=== PATIENT | male | born 1940 | race Caucasian/White ===

== ENCOUNTER 2019-06-15 09:19 | Outpatient (CLI) | payer MEDICARE, SELFPAY ==
[2019-06-15 09:38] LABS: Hematocrit 40.6 % (37.0-46.0); Hemoglobin 13.6 g/dL (12.4-15.3); Immature Platelet Fraction Pct 2.6 % (1.0-7.0); Mean Corpuscular HGB Conc 33.5 g/dL (32.0-36.0); Mean Corpuscular Hemoglobin 31.6 pg (27.0-31.0); Mean Corpuscular Volume 94.4 fL (78.0-102.0); Mean Platelet Volume 10.2 fl (8.7-11.0); Platelet Count Result 85 K/mm3 (150-420); Red Cell Distribution Width 15.6 % (11.6-14.4); White Blood Count 3.3 K/mm3 (4.8-10.8)
[2019-06-15 09:54] LABS: Alanine Aminotransferase 17 U/L (16-63); Albumin Level 3.8 g/dL (3.4-5.0); Alkaline Phosphatase 49 U/L (46-116); Anion Gap 10.6 mmol/L (7-16); Aspartate Amino Transferase 17 U/L (15-37); Band Neutrophils Percent 2 % (0-6); Basophils Percent Manual 0 % (0-1); Bilirubin,Total 0.8 mg/dL (0.00-1.00); Blood Urea Nitrogen 22 mg/dL (7-18); Calcium 8.6 mg/dL (8.5-10.1); Carbon Dioxide 33 mmol/L (21-32); Chloride 101 mmol/L (98-108); Eosinophils Absolute Manual 0.13 K/mm3 (0.02-0.5); Eosinophils Percent Manual 4 % (1-6); Estimated Glomerular Filt Rate 41; Glucose 166 mg/dL (70-99); Lymphocytes Absolute Manual 0.16 K/mm3 (1.1-4.5); Lymphocytes Percent Manual 5 % (18-44); Monocytes Absolute Manual 0.33 K/mm3 (0.1-0.90); Monocytes Percent Manual 10 % (3-9); Neutrophils Absolute Manual 2.67 K/mm3 (1.3-6.7); Neutrophils Percent Manual 79 % (46-73); Osmolality Calculated 297 mOsm/kg (285-295); Potassium 4.6 mmol/L (3.5-5.1); Sodium 140 mmol/L (136-145); Total Cells Counted 100; Total Protein 6.8 g/dL (6.4-8.2)
[2019-06-15 09:55] LABS: Platelet Estimate Decreased (Adequate)
[2019-06-20 11:10] LABS: Hemoglobin A1C 6.4 % (<5.7)
[2019-06-20 11:31] LABS: Free T4 Free Thyroxine Reflex 1.66 ng/dL (0.76-1.46)
[2019-06-22 12:15] LABS: Cortisol Random 7.7 mcg/dL (***)
== END 2019-06-15 09:20 | disposition home or self-care (01) ==
LOC: CHSLAB 09:21
PROVIDERS: PCP Internal Medicine; Visit Provider Internal Medicine Hematology & Oncology
DX: C7A.8 Other malignant neuroendocrine tumors (principal)
CPT/HCPCS: 36415; 80053; 82533; 83036; 84439; 84443; 85025; 85055

== ENCOUNTER 2019-07-10 11:48 | Outpatient (CLI) | payer MEDICARE, SELFPAY ==
[2019-07-10 12:19] VITALS: BP 126/62; PULSE 68; RESP 18; TEMP 36.6; O2SAT 99
[2019-07-10 12:21] LABS: Hematocrit 36.9 % (37.0-46.0); Hemoglobin 12.5 g/dL (12.4-15.3); Mean Corpuscular HGB Conc 33.9 g/dL (32.0-36.0); Mean Corpuscular Hemoglobin 31.9 pg (27.0-31.0); Mean Corpuscular Volume 94.1 fL (78.0-102.0); Mean Platelet Volume 10.7 fl (8.7-11.0); Platelet Count Result 101 K/mm3 (150-420); Red Blood Count 3.92 M/mm3 (4.70-6.10); Red Cell Distribution Width 14.2 % (11.6-14.4); White Blood Count 3.6 K/mm3 (4.8-10.8)
[2019-07-10 12:38] LABS: Alanine Aminotransferase 19 U/L (16-63); Albumin Level 3.7 g/dL (3.4-5.0); Alkaline Phosphatase 62 U/L (46-116); Anion Gap 12.6 mmol/L (7-16); Aspartate Amino Transferase 22 U/L (15-37); Bilirubin,Total 0.8 mg/dL (0.00-1.00); Blood Urea Nitrogen 21 mg/dL (7-18); Calcium 8.6 mg/dL (8.5-10.1); Carbon Dioxide 29 mmol/L (21-32); Chloride 103 mmol/L (98-108); Estimated Glomerular Filt Rate 33; Glucose 227 mg/dL (70-99); Osmolality Calculated 298 mOsm/kg (285-295); Potassium 5.6 mmol/L (3.5-5.1); Sodium 139 mmol/L (136-145); Total Protein 6.8 g/dL (6.4-8.2)
[2019-07-10 12:58] LABS: Band Neutrophils Percent 0 % (0-6); Eosinophils Absolute Manual 0.03 K/mm3 (0.02-0.5); Eosinophils Percent Manual 1 % (1-6); Lymphocytes Absolute Manual 0.28 K/mm3 (1.1-4.5); Lymphocytes Percent Manual 8 % (18-44); Monocytes Absolute Manual 0.43 K/mm3 (0.1-0.90); Monocytes Percent Manual 12 % (3-9); Neutrophils Percent Manual 78 % (46-73); Total Cells Counted 100
[2019-07-10 12:59] LABS: Basophils Percent Manual 0 % (0-1); Myelocytes Percent 1 %; Platelet Estimate Decreased (Adequate)
[2019-07-10] MEDS: FAMOTIDINE 20 MG/ISO 50 ML 20 MG/50 ML BAG 100 MG IVPB (13:13)
[2019-07-10] MEDS: ACETAMINOPHEN 325 MG TABLET 650 MG PO (13:13)
[2019-07-10 14:44] VITALS: BP 107/60; PULSE 68; RESP 14; TEMP 36.6; O2SAT 99
--- NOTE | 2019-07-10 14:50 | PC.NURSE ---
Patient here for Durvalumab chemo infusion. #1 of #26. All chemo teaching given. All questions answer. Chemo treatment administered. Patient tolerated well. Safe exit of hospital.
== END 2019-07-10 11:49 | disposition home or self-care (01) ==
LOC: CHSTREATRM 11:51
PROVIDERS: PCP Internal Medicine; Visit Provider Internal Medicine Hematology & Oncology
DX: Z51.11 Encounter for antineoplastic chemotherapy (principal); C7A.8 Other malignant neuroendocrine tumors; C7A.090 Malignant carcinoid tumor of the bronchus and lung
CPT/HCPCS: 36415; 80053; 85025; 96365; 96374; 96413; A9270; J1200; J7050; J9173

== ENCOUNTER 2019-07-18 09:45 | Outpatient (CLI) | payer MEDICARE, SELFPAY ==
[2019-07-18 11:23] LABS: Anion Gap 11.2 mmol/L (7-16); Blood Urea Nitrogen 23 mg/dL (7-18); Calcium 9.2 mg/dL (8.5-10.1); Carbon Dioxide 31 mmol/L (21-32); Chloride 102 mmol/L (98-108); Estimated Glomerular Filt Rate 39; Glucose 149 mg/dL (70-99); Osmolality Calculated 294 mOsm/kg (285-295); Potassium 5.2 mmol/L (3.5-5.1); Sodium 139 mmol/L (136-145)
== END 2019-07-18 09:46 | disposition home or self-care (01) ==
LOC: CHSLAB 09:47
PROVIDERS: PCP Internal Medicine; Visit Provider Internal Medicine
DX: R79.89 Other specified abnormal findings of blood chemistry (principal)
CPT/HCPCS: 36415; 80048

== ENCOUNTER 2019-07-23 08:11 | Outpatient (CLI) | payer MEDICARE, SELFPAY ==
[2019-07-23 08:24] LABS: Hematocrit 38.2 % (37.0-46.0); Hemoglobin 12.6 g/dL (12.4-15.3); Mean Corpuscular Hemoglobin 30.8 pg (27.0-31.0); Mean Corpuscular Volume 93.4 fL (78.0-102.0); Mean Platelet Volume 9.8 fl (8.7-11.0); Platelet Count Result 101 K/mm3 (150-420); Red Blood Count 4.09 M/mm3 (4.70-6.10); Red Cell Distribution Width 13.8 % (11.6-14.4); White Blood Count 3.8 K/mm3 (4.8-10.8)
[2019-07-23 08:34] LABS: Hemoglobin A1C 6.7 % (<5.7)
[2019-07-23 08:49] LABS: Alanine Aminotransferase 18 U/L (16-63); Albumin Level 3.9 g/dL (3.4-5.0); Alkaline Phosphatase 56 U/L (46-116); Anion Gap 11.1 mmol/L (7-16); Aspartate Amino Transferase 19 U/L (15-37); Bilirubin,Total 0.9 mg/dL (0.00-1.00); Blood Urea Nitrogen 21 mg/dL (7-18); Calcium 9.1 mg/dL (8.5-10.1); Carbon Dioxide 31 mmol/L (21-32); Chloride 103 mmol/L (98-108); Estimated Glomerular Filt Rate 38; Glucose 160 mg/dL (70-99); Osmolality Calculated 296 mOsm/kg (285-295); Potassium 5.1 mmol/L (3.5-5.1); Sodium 140 mmol/L (136-145); Total Protein 7.1 g/dL (6.4-8.2)
[2019-07-23 08:56] LABS: Band Neutrophils Percent 2 % (0-6); Basophils Absolute Manual 0.07 K/mm3 (0-0.1); Basophils Percent Manual 2 % (0-1); Eosinophils Absolute Manual 0.11 K/mm3 (0.02-0.5); Eosinophils Percent Manual 3 % (1-6); Lymphocytes Absolute Manual 0.22 K/mm3 (1.1-4.5); Lymphocytes Percent Manual 6 % (18-44); Monocytes Absolute Manual 0.49 K/mm3 (0.1-0.90); Monocytes Percent Manual 13 % (3-9); Neutrophils Absolute Manual 2.88 K/mm3 (1.3-6.7); Neutrophils Percent Manual 74 % (46-73); Total Cells Counted 100
[2019-07-23 08:57] LABS: Platelet Estimate Decreased (Adequate)
[2019-07-23 09:18] LABS: Thyroid Stimulating Hormone Reflex 0.02 u/IU/mL (0.36-3.74)
[2019-07-23 09:53] LABS: Free T4 Free Thyroxine Reflex 1.51 ng/dL (0.76-1.46)
[2019-07-25 18:42] LABS: Cortisol Random 14.1 mcg/dL (***)
== END 2019-07-23 08:12 | disposition home or self-care (01) ==
LOC: CHSLAB 08:12
PROVIDERS: PCP Internal Medicine; Visit Provider Internal Medicine Hematology & Oncology
DX: C7A.8 Other malignant neuroendocrine tumors (principal); Z79.899 Other long term (current) drug therapy
CPT/HCPCS: 36415; 80053; 82533; 83036; 84439; 84443; 85025

== ENCOUNTER 2019-07-24 11:42 | Outpatient (CLI) | payer MEDICARE, SELFPAY ==
[2019-07-24] MEDS: ACETAMINOPHEN 325 MG TABLET 650 MG PO (12:25)
[2019-07-24] MEDS: FAMOTIDINE 20 MG/ISO 50 ML 20 MG/50 ML BAG 100 MG IVPB (12:26)
[2019-07-24 12:40] VITALS: BP 100/60; PULSE 78; RESP 14; TEMP 36.6; O2SAT 99
[2019-07-24 14:15] VITALS: BP 110/63; PULSE 72; RESP 16; TEMP 36.6; O2SAT 99
--- NOTE | 2019-07-24 14:19 | PC.NURSE ---
HERE FOR BIWEEKLY DURVALUMAB CHEMO. NO CONCERNS VOICED. LABS REVIEWED.CHEMO EDUCATION REVIEWED. OK TO PROCEEED. CHEMO INFUSION ADMINISTERED. TOLERATED WELL. SAFE EXIT OF HOSPITAL.
== END 2019-07-24 11:43 | disposition home or self-care (01) ==
LOC: CHSTREATRM 11:45
PROVIDERS: PCP Internal Medicine; Visit Provider Internal Medicine Hematology & Oncology
DX: Z51.11 Encounter for antineoplastic chemotherapy (principal); C7A.8 Other malignant neuroendocrine tumors; C7A.090 Malignant carcinoid tumor of the bronchus and lung
CPT/HCPCS: 96367; 96376; 96413; A9270; J1200; J7050; J9173

== ENCOUNTER 2019-07-31 09:09 | Outpatient (CLI) | payer MEDICARE, SELFPAY ==
--- NOTE | ~2019-07-31 | CT_ITS ---
EXAMINATION: CT chest wo con DATE: 07/31/2019 09:32 INDICATION: Neuroendocrine carcinoma. Follow-up radiation. TECHNIQUE: Computed tomography (CT) of the chest was performed without intravenous contrast. The dose -length product was 337.35 mGy-cm. Automated exposure control and iterative reconstruction technique were employed. COMPARISON: CT dated 02/05/2019 FINDINGS: There is a new small right pleural effusion. There has been improvement of mediastinal/subc arinal lymphadenopathy. For instance conglomerate subcarinal lymph node mass measures approximately 2 .4 x 2.3 cm compared with 5.5 x 3.9 cm on prior examination. There is mild thickening of the distal e sophagus. There is a 2 mm right lower lobe nodule, image 77. There are scattered calcified granulomas . There are additional nodules in the upper lobes measuring 2 mm or less. These nodules are not signi ficantly changed from prior examination, likely chronic granulomatous disease. There is a 4 mm right lower lobe nodule, not definitely seen on prior examination, image 75. This may be due to misregistra tion artifact. There is moderate lumbar spondylosis. There is a pacemaker overlying the left chest wa ll. IMPRESSION: 1. Improved mediastinal lymphadenopathy, likely interval response to therapy. 2: New 4 mm right lower lobe nodule. Additional stable nodules in both lungs measuring 2 mm or less, likely benign. Follow-up CT in 6 months recommended. 3: New small right pleural effusion. Reviewed, dictated and finalized at location A. IMPRESSION: 1. Improved mediastinal lymphadenopathy, likely interval response to therapy. 2: New 4 mm right lower lobe nodule. Additional stable nodules in both lungs m easuring 2 mm or less, likely benign. Follow-up CT in 6 months recommended. 3: New small right pleural effusion.
== END 2019-07-31 09:10 | disposition home or self-care (01) ==
PROVIDERS: PCP Internal Medicine; Visit Provider Internal Medicine Hematology & Oncology
DX: C7A.8 Other malignant neuroendocrine tumors (principal)
CPT/HCPCS: 71250

== ENCOUNTER 2019-08-02 08:20 | Outpatient (CLI) | payer MEDICARE, SELFPAY ==
[2019-08-02 08:35] LABS: Hemoglobin 12.8 g/dL (12.4-15.3); Mean Corpuscular HGB Conc 33.7 g/dL (32.0-36.0); Mean Corpuscular Hemoglobin 30.8 pg (27.0-31.0); Mean Corpuscular Volume 91.3 fL (78.0-102.0); Mean Platelet Volume 9.8 fl (8.7-11.0); Platelet Count Result 111 K/mm3 (150-420); Red Blood Count 4.16 M/mm3 (4.70-6.10); Red Cell Distribution Width 13.2 % (11.6-14.4); White Blood Count 3.5 K/mm3 (4.8-10.8)
[2019-08-02 08:52] LABS: Hemoglobin A1C 6.7 % (<5.7)
[2019-08-02 08:58] LABS: Band Neutrophils Percent 1 % (0-6); Basophils Absolute Manual 0.03 K/mm3 (0-0.1); Basophils Percent Manual 1 % (0-1); Eosinophils Absolute Manual 0.07 K/mm3 (0.02-0.5); Eosinophils Percent Manual 2 % (1-6); Lymphocytes Absolute Manual 0.28 K/mm3 (1.1-4.5); Lymphocytes Percent Manual 8 % (18-44); Monocytes Absolute Manual 0.31 K/mm3 (0.1-0.90); Monocytes Percent Manual 9 % (3-9); Myelocytes Percent 1 %; Neutrophils Absolute Manual 2.76 K/mm3 (1.3-6.7); Neutrophils Percent Manual 78 % (46-73); Platelet Estimate Adequate (Adequate); Total Cells Counted 100
[2019-08-02 09:36] LABS: Alanine Aminotransferase 25 U/L (16-63); Albumin Level 3.9 g/dL (3.4-5.0); Alkaline Phosphatase 68 U/L (46-116); Anion Gap 12.6 mmol/L (7-16); Aspartate Amino Transferase 24 U/L (15-37); Bilirubin,Total 0.5 mg/dL (0.00-1.00); Blood Urea Nitrogen 22 mg/dL (7-18); Calcium 8.9 mg/dL (8.5-10.1); Carbon Dioxide 30 mmol/L (21-32); Chloride 102 mmol/L (98-108); Estimated Glomerular Filt Rate 40; Glucose 165 mg/dL (70-99); Osmolality Calculated 297 mOsm/kg (285-295); Potassium 4.6 mmol/L (3.5-5.1); Sodium 140 mmol/L (136-145)
[2019-08-02 09:37] LABS: Thyroid Stimulating Hormone Reflex 0.16 u/IU/mL (0.36-3.74)
[2019-08-02 09:38] LABS: Free T4 Free Thyroxine Reflex 1.33 ng/dL (0.76-1.46)
[2019-08-07 04:30] LABS: Cortisol Random 14.6 mcg/dL (***)
== END 2019-08-02 08:21 | disposition home or self-care (01) ==
LOC: CHSLAB 08:23
PROVIDERS: PCP Internal Medicine; Visit Provider Internal Medicine Hematology & Oncology
DX: C7A.8 Other malignant neuroendocrine tumors (principal); Z79.899 Other long term (current) drug therapy
CPT/HCPCS: 36415; 80053; 82533; 83036; 84439; 84443; 85025

== ENCOUNTER 2019-08-07 13:26 | Outpatient (CLI) | payer MEDICARE, SELFPAY ==
[2019-08-07] MEDS: ACETAMINOPHEN 325 MG TABLET 650 MG PO (13:55)
[2019-08-07] MEDS: FAMOTIDINE 20 MG/ISO 50 ML 20 MG/50 ML BAG 100 MG IVPB (13:56)
--- NOTE | 2019-08-07 15:33 | PC.NURSE ---
Chemo infused as ordered. Pt tolerated well. Has no questions or concerns. Taken to car per wc and discharged to home per self.
== END 2019-08-07 13:27 | disposition home or self-care (01) ==
LOC: CHSTREATRM 13:28
PROVIDERS: PCP Internal Medicine; Visit Provider Internal Medicine Hematology & Oncology
DX: Z51.11 Encounter for antineoplastic chemotherapy (principal); C7A.8 Other malignant neuroendocrine tumors; C7A.090 Malignant carcinoid tumor of the bronchus and lung
CPT/HCPCS: 96367; 96375; 96413; A9270; J1200; J7050; J9173

== ENCOUNTER 2019-08-20 07:33 | Outpatient (CLI) | payer MEDICARE, SELFPAY ==
[2019-08-20 07:50] LABS: Hematocrit 37.5 % (37.0-46.0); Hemoglobin 12.3 g/dL (12.4-15.3); Mean Corpuscular HGB Conc 32.8 g/dL (32.0-36.0); Mean Corpuscular Hemoglobin 29.5 pg (27.0-31.0); Mean Corpuscular Volume 89.9 fL (78.0-102.0); Mean Platelet Volume 9.9 fl (8.7-11.0); Platelet Count Result 116 K/mm3 (150-420); Red Blood Count 4.17 M/mm3 (4.70-6.10); Red Cell Distribution Width 13.3 % (11.6-14.4); White Blood Count 3.7 K/mm3 (4.8-10.8)
[2019-08-20 08:19] LABS: Hemoglobin A1C 6.7 % (<5.7)
[2019-08-20 08:33] LABS: Band Neutrophils Percent 2 % (0-6); Basophils Absolute Manual 0.03 K/mm3 (0-0.1); Basophils Percent Manual 1 % (0-1); Eosinophils Absolute Manual 0.07 K/mm3 (0.02-0.5); Eosinophils Percent Manual 2 % (1-6); Lymphocytes Absolute Manual 0.25 K/mm3 (1.1-4.5); Lymphocytes Percent Manual 7 % (18-44); Monocytes Absolute Manual 0.33 K/mm3 (0.1-0.90); Monocytes Percent Manual 9 % (3-9); Neutrophils Absolute Manual 2.99 K/mm3 (1.3-6.7); Neutrophils Percent Manual 79 % (46-73); Total Cells Counted 100
[2019-08-20 08:57] LABS: Alanine Aminotransferase 16 U/L (16-63); Albumin Level 3.8 g/dL (3.4-5.0); Alkaline Phosphatase 67 U/L (46-116); Anion Gap 14.8 mmol/L (7-16); Aspartate Amino Transferase 18 U/L (15-37); Bilirubin,Total 0.7 mg/dL (0.00-1.00); Blood Urea Nitrogen 25 mg/dL (7-18); Calcium 8.9 mg/dL (8.5-10.1); Carbon Dioxide 28 mmol/L (21-32); Chloride 102 mmol/L (98-108); Estimated Glomerular Filt Rate 37; Glucose 201 mg/dL (70-99); Osmolality Calculated 300 mOsm/kg (285-295); Potassium 4.8 mmol/L (3.5-5.1); Sodium 140 mmol/L (136-145)
[2019-08-20 08:58] LABS: Free T4 Free Thyroxine Reflex 1.54 ng/dL (0.76-1.46)
[2019-08-23 06:36] LABS: Cortisol Random 14.4 mcg/dL (***)
== END 2019-08-20 07:34 | disposition home or self-care (01) ==
PROVIDERS: PCP Internal Medicine; Visit Provider Internal Medicine Hematology & Oncology
DX: C7A.8 Other malignant neuroendocrine tumors (principal); N25.81 Secondary hyperparathyroidism of renal origin; Z79.899 Other long term (current) drug therapy
CPT/HCPCS: 36415; 80053; 82533; 83036; 84439; 84443; 85025

== ENCOUNTER 2019-08-21 12:13 | Outpatient (CLI) | payer MEDICARE, SELFPAY ==
[2019-08-21 12:33] VITALS: BP 127/59; PULSE 70; RESP 14; TEMP 36.6; O2SAT 97
[2019-08-21] MEDS: ACETAMINOPHEN 325 MG TABLET 650 MG PO (12:42)
[2019-08-21] MEDS: FAMOTIDINE 20 MG/ISO 50 ML 20 MG/50 ML BAG 100 MG IVPB (12:43)
[2019-08-21 14:16] VITALS: BP 125/60; PULSE 70; RESP 12; TEMP 36.6; O2SAT 96
--- NOTE | 2019-08-21 14:18 | PC.NURSE ---
HERE FOR CYCLE 4 DURVALUMAB CHEMO. LABS REVIEWED -OK. NO CONCERNS VOICED. CHEMO ADMINISTERED. TOLERATED WELL. SAFE EXIT OF HOSPITAL.
== END 2019-08-21 12:14 | disposition home or self-care (01) ==
LOC: CHSTREATRM 12:15
PROVIDERS: PCP Internal Medicine; Visit Provider Internal Medicine Hematology & Oncology
DX: Z51.11 Encounter for antineoplastic chemotherapy (principal); C7A.8 Other malignant neuroendocrine tumors; C7A.090 Malignant carcinoid tumor of the bronchus and lung
CPT/HCPCS: 96365; 96413; A9270; J7050; J9173

== ENCOUNTER 2019-09-03 09:06 | Outpatient (CLI) | payer MEDICARE, SELFPAY ==
[2019-09-03 09:33] LABS: Basophils Absolute Auto 0.03 K/mm3 (0.00-0.10); Basophils Percent Auto 0.6 % (0.0-1.0); Eosinophils Absolute Auto 0.16 K/mm3 (0.02-0.50); Hematocrit 38.6 % (37.0-46.0); Hemoglobin 12.9 g/dL (12.4-15.3); Immature Granulocyte Absolute 0.03 K/mm3 (0.00-0.00); Immature Granulocyte Percent A 0.6 % (0.0-0.0); Immature Platelet Fraction Pct 2.7 % (1.0-7.0); Lymphocytes Absolute Auto 0.31 K/mm3 (1.10-4.50); Lymphocytes Percent Auto 5.8 % (18.0-42.0); Mean Corpuscular HGB Conc 33.4 g/dL (32.0-36.0); Mean Corpuscular Hemoglobin 29.2 pg (27.0-31.0); Mean Corpuscular Volume 87.3 fL (78.0-102.0); Mean Platelet Volume 10.2 fl (8.7-11.0); Monocytes Absolute Auto 0.52 K/mm3 (0.10-0.90); Monocytes Percent Auto 9.8 % (2.0-11.0); Neutrophils Absolute Auto 4.3 K/mm3 (1.7-7.2); Neutrophils Percent Auto 80.2 % (50.0-70.0); Platelet Count Result 127 K/mm3 (150-420); Red Blood Count 4.42 M/mm3 (4.70-6.10); Red Cell Distribution Width 13.4 % (11.6-14.4); White Blood Count 5.3 K/mm3 (4.8-10.8)
[2019-09-03 10:33] LABS: Alanine Aminotransferase 28 U/L (16-63); Alkaline Phosphatase 84 U/L (46-116); Aspartate Amino Transferase 28 U/L (15-37); Bilirubin,Total 0.7 mg/dL (0.00-1.00); Blood Urea Nitrogen 30 mg/dL (7-18); Calcium 9.1 mg/dL (8.5-10.1); Carbon Dioxide 31 mmol/L (21-32); Chloride 101 mmol/L (98-108); Estimated Glomerular Filt Rate 37; Glucose 100 mg/dL (70-99); Osmolality Calculated 294 mOsm/kg (285-295); Sodium 139 mmol/L (136-145); Total Protein 7.4 g/dL (6.4-8.2)
[2019-09-03 10:36] LABS: Free T4 Free Thyroxine Reflex 1.37 ng/dL (0.76-1.46); Thyroid Stimulating Hormone Reflex 0.17 u/IU/mL (0.36-3.74)
[2019-09-06 06:41] LABS: Cortisol Random 14.5 mcg/dL (***)
== END 2019-09-03 09:07 | disposition home or self-care (01) ==
LOC: CHSLAB 09:09
PROVIDERS: PCP Internal Medicine; Visit Provider Internal Medicine Hematology & Oncology
DX: C7A.8 Other malignant neuroendocrine tumors (principal); E03.9 Hypothyroidism, unspecified
CPT/HCPCS: 36415; 80053; 82533; 84439; 84443; 85025; 85055

== ENCOUNTER 2019-09-04 12:20 | Outpatient (CLI) | payer MEDICARE, SELFPAY ==
[2019-09-04 12:30] VITALS: BP 115/59; PULSE 72; RESP 14; TEMP 36.7; O2SAT 98
[2019-09-04] MEDS: FAMOTIDINE 20 MG/ISO 50 ML 20 MG/50 ML BAG 100 MG IVPB (12:56)
[2019-09-04] MEDS: SODIUM CHLORIDE 0.9% IV 250 ML 30 ML IVPB (12:58)
[2019-09-04] MEDS: ACETAMINOPHEN 325 MG TABLET 650 MG PO (12:58)
[2019-09-04 14:28] VITALS: BP 115/60; PULSE 70; RESP 14; TEMP 37; O2SAT 98
--- NOTE | 2019-09-04 14:31 | PC.NURSE ---
Patient here for cycle 5 chemo of Durvalumab. No concerns voiced from patient. Labs reviewed from 09/03/19 Ok to proceed with chemo. Durvalumab administered. Patient tolerated chemo well. Safe exit of hospital.
== END 2019-09-04 12:21 | disposition home or self-care (01) ==
LOC: CHSTREATRM 12:24
PROVIDERS: PCP Internal Medicine; Visit Provider Internal Medicine Hematology & Oncology
DX: Z51.11 Encounter for antineoplastic chemotherapy (principal); C7A.8 Other malignant neuroendocrine tumors; C7A.090 Malignant carcinoid tumor of the bronchus and lung
CPT/HCPCS: 96367; 96413; A9270; J7050; J9173

== ENCOUNTER 2019-09-17 08:37 | Outpatient (CLI) | payer MEDICARE, SELFPAY ==
[2019-09-17 08:55] LABS: Basophils Absolute Auto 0.03 K/mm3 (0.00-0.10); Basophils Percent Auto 0.6 % (0.0-1.0); Eosinophils Absolute Auto 0.13 K/mm3 (0.02-0.50); Eosinophils Percent Auto 2.5 % (1.0-6.0); Hematocrit 37.8 % (37.0-46.0); Hemoglobin 12.4 g/dL (12.4-15.3); Immature Granulocyte Absolute 0.04 K/mm3 (0.00-0.00); Immature Granulocyte Percent A 0.8 % (0.0-0.0); Lymphocytes Absolute Auto 0.27 K/mm3 (1.10-4.50); Lymphocytes Percent Auto 5.2 % (18.0-42.0); Mean Corpuscular HGB Conc 32.8 g/dL (32.0-36.0); Mean Corpuscular Volume 88.3 fL (78.0-102.0); Mean Platelet Volume 10.3 fl (8.7-11.0); Monocytes Absolute Auto 0.45 K/mm3 (0.10-0.90); Monocytes Percent Auto 8.7 % (2.0-11.0); Neutrophils Absolute Auto 4.2 K/mm3 (1.7-7.2); Neutrophils Percent Auto 82.2 % (50.0-70.0); Platelet Count Result 108 K/mm3 (150-420); Red Blood Count 4.28 M/mm3 (4.70-6.10); Red Cell Distribution Width 14.1 % (11.6-14.4); White Blood Count 5.2 K/mm3 (4.8-10.8)
[2019-09-17 09:05] LABS: Hemoglobin A1C 7.1 % (<5.7)
[2019-09-17 09:12] LABS: Creatinine Urine 94.08 mg/dL (40-278)
[2019-09-17 09:25] LABS: MALB Creatinine Ratio 57.7 mg/g (0-30); Microalbumin Urine Random 54.3 mg/L
[2019-09-17 10:18] LABS: Alanine Aminotransferase 27 U/L (16-63); Albumin Level 3.9 g/dL (3.4-5.0); Alkaline Phosphatase 79 U/L (46-116); Anion Gap 11.1 mmol/L (7-16); Aspartate Amino Transferase 28 U/L (15-37); Bilirubin,Total 0.7 mg/dL (0.00-1.00); Blood Urea Nitrogen 35 mg/dL (7-18); Calcium 9.2 mg/dL (8.5-10.1); Carbon Dioxide 31 mmol/L (21-32); Chloride 102 mmol/L (98-108); Estimated Glomerular Filt Rate 32; Glucose 133 mg/dL (70-99); Osmolality Calculated 298 mOsm/kg (285-295); Potassium 5.1 mmol/L (3.5-5.1); Sodium 139 mmol/L (136-145); Thyroid Stimulating Hormone Reflex 0.52 u/IU/mL (0.36-3.74); Total Protein 7.3 g/dL (6.4-8.2)
[2019-09-19 14:19] LABS: Parathyroid Intact 117 pg/mL (14-64)
[2019-09-19 19:58] LABS: Vitamin D 25 Hydroxy 49 ng/mL (30-100)
[2019-09-20 21:38] LABS: Cortisol Random 19.2 mcg/dL (***)
== END 2019-09-17 08:38 | disposition home or self-care (01) ==
LOC: CHSLAB 08:41
PROVIDERS: PCP Internal Medicine; Visit Provider Internal Medicine Hematology & Oncology
DX: C7A.090 Malignant carcinoid tumor of the bronchus and lung (principal); E03.9 Hypothyroidism, unspecified; N18.3 Chronic kidney disease, stage 3 (moderate); C7A.8 Other malignant neuroendocrine tumors; E11.9 Type 2 diabetes mellitus without complications
CPT/HCPCS: 36415; 80053; 82043; 82306; 82533; 83036; 83970; 84100; 84443; 85025

== ENCOUNTER 2019-09-19 12:06 | Outpatient (CLI) | payer MEDICARE, SELFPAY ==
[2019-09-19 12:23] VITALS: BP 120/68; PULSE 72; RESP 16; TEMP 36.8; O2SAT 98
[2019-09-19] MEDS: SODIUM CHLORIDE 0.9% IV 250 ML 10 ML IVPB (13:04)
[2019-09-19] MEDS: ACETAMINOPHEN 325 MG TABLET 650 MG PO (13:07)
[2019-09-19] MEDS: FAMOTIDINE 20 MG/ISO 50 ML 20 MG/50 ML BAG 100 MG IVPB (13:07)
--- NOTE | 2019-09-19 14:50 | PC.NURSE ---
Pt discharged to home amb per self without complaints or questions.
== END 2019-09-19 12:07 | disposition home or self-care (01) ==
PROVIDERS: PCP Internal Medicine; Visit Provider Internal Medicine Hematology & Oncology
DX: Z51.11 Encounter for antineoplastic chemotherapy (principal); C7A.090 Malignant carcinoid tumor of the bronchus and lung
CPT/HCPCS: 96367; 96375; 96413; A9270; J1200; J7050; J9173

== ENCOUNTER 2019-10-29 08:28 | Outpatient (CLI) | payer MEDICARE, SELFPAY ==
[2019-10-29 08:45] LABS: Add Urine Microscopic? YES; Appearance Urine Clear (Clear); Bilirubin Urine Negative (Negative); Blood Urine Negative (Negative); Color Urine Yellow (Yellow); Glucose Urine UA Negative (Negative); Ketones Urine Negative (Negative); Leukocyte Esterase Ur Trace (Negative); Nitrate Urine Negative (Negative); Protein Urine Trace (Negative); Specific Grav Ur 1.015 (1.010-1.020)
[2019-10-29 08:46] LABS: Basophils Absolute Auto 0.03 K/mm3 (0.00-0.10); Basophils Percent Auto 0.7 % (0.0-1.0); Eosinophils Percent Auto 2.3 % (1.0-6.0); Hematocrit 33.2 % (37.0-46.0); Hemoglobin 10.7 g/dL (12.4-15.3); Immature Granulocyte Absolute 0.02 K/mm3 (0.00-0.00); Immature Granulocyte Percent A 0.5 % (0.0-0.0); Lymphocytes Absolute Auto 0.34 K/mm3 (1.10-4.50); Mean Corpuscular HGB Conc 32.2 g/dL (32.0-36.0); Mean Corpuscular Hemoglobin 29.3 pg (27.0-31.0); Mean Platelet Volume 9.4 fl (8.7-11.0); Monocytes Absolute Auto 0.49 K/mm3 (0.10-0.90); Monocytes Percent Auto 11.5 % (2.0-11.0); Neutrophils Absolute Auto 3.3 K/mm3 (1.7-7.2); Platelet Count Result 115 K/mm3 (150-420); Red Blood Count 3.65 M/mm3 (4.70-6.10); Red Cell Distribution Width 16.1 % (11.6-14.4); White Blood Count 4.3 K/mm3 (4.8-10.8)
[2019-10-29 08:51] LABS: Bacteria Urine Trace /hpf; RBC Urine None seen /hpf (0-2); Squamous Epithelial Cell Urine Moderate /hpf (Few); WBC Urine None seen /hpf (0-3)
[2019-10-29 08:53] LABS: Creatinine Urine 110.46 mg/dL (40-278)
[2019-10-29 08:55] LABS: Hemoglobin A1C 6.3 % (<5.7)
[2019-10-29 08:56] LABS: Microalbumin Urine Random 74.1 mg/L
[2019-10-29 09:05] LABS: BNP 295 pg/mL (0-100)
[2019-10-29 09:46] LABS: Alanine Aminotransferase 16 U/L (16-63); Albumin Level 3.7 g/dL (3.4-5.0); Alkaline Phosphatase 49 U/L (46-116); Anion Gap 6.8 mmol/L (7-16); Aspartate Amino Transferase 20 U/L (15-37); Bilirubin,Total 0.8 mg/dL (0.00-1.00); Blood Urea Nitrogen 19 mg/dL (7-18); Calcium 8.3 mg/dL (8.5-10.1); Carbon Dioxide 33 mmol/L (21-32); Chloride 103 mmol/L (98-108); Cholesterol 107 mg/dL (0-200); Creatine Kinase 44 U/L (39-308); Estimated Glomerular Filt Rate 31; Ferritin 36 ng/mL (26-388); Free T4 Free Thyroxine 1.26 ng/dL (0.76-1.46); Glucose 141 mg/dL (70-99); HDL Direct 25 mg/dL (40-60); Iron 37 ug/dL (65-175); LDL Cholesterol Calculated 68 mg/dL (<130); Osmolality Calculated 290 mOsm/kg (285-295); Percent Iron Saturation 13 % (12-57); Potassium 4.8 mmol/L (3.5-5.1); Sodium 138 mmol/L (136-145); Thyroid Stimulating Hormone 1.57 uIU/mL (0.36-3.74); Total Protein 6.7 g/dL (6.4-8.2); Triglycerides 71 mg/dL (0-150); Uric Acid 8.4 mg/dL (3.5-7.2)
[2019-11-01 13:52] LABS: Total Triiodothyronine (T3) 99 ng/dL (76-181)
[2019-11-03 15:30] LABS: Testosterone Free 186.4 pg/mL (30.0-135.0); Testosterone Total 1065 ng/dL (250-1100)
== END 2019-10-29 08:29 | disposition home or self-care (01) ==
LOC: CHSLAB 08:31
PROVIDERS: PCP Internal Medicine; Visit Provider Internal Medicine
DX: E78.2 Mixed hyperlipidemia (principal); E11.65 Type 2 diabetes mellitus with hyperglycemia; E03.4 Atrophy of thyroid (acquired); E79.0 Hyperuricemia without signs of inflammatory arthritis and tophaceous disease; I50.1 Left ventricular failure, unspecified
CPT/HCPCS: 36415; 80053; 80061; 81001; 82043; 82550; 82728; 83036; 83540; 83550; 83880; 84402; 84403; 84439; 84443; 84480; 84550; 85025

== ENCOUNTER 2019-10-31 08:23 | Outpatient (CLI) | payer MEDICARE, SELFPAY ==
--- NOTE | ~2019-10-31 | XR_ITS ---
EXAMINATION: XR chest 2V DATE: 10/31/2019 08:44 INDICATION: COPD TECHNIQUE: PA and lateral views of the chest are obtained. COMPARISON: 01/30/[address] dated 07/31/2019 FINDINGS: A small stable right pleural effusion is present. There are airspace opacities of the right lung base. There is no pneumothorax. A triple lead cardiac pacemaker of the left chest wall ends wit h leads in expected locations. Cardiomegaly is noted. There is moderate thoracic spondylosis. IMPRESSION: 1. Small right pleural effusion. 2. Right basilar airspace opacities, likely atelectasis. Reviewed, dictated and finalized at location B.
== END 2019-10-31 08:24 | disposition home or self-care (01) ==
LOC: CHSLAB 08:26
PROVIDERS: PCP Internal Medicine; Visit Provider Internal Medicine Pulmonary Disease
DX: J44.9 Chronic obstructive pulmonary disease, unspecified (principal)
CPT/HCPCS: 71046

== ENCOUNTER 2019-11-23 08:44 | Outpatient (CLI) | payer MEDICARE, SELFPAY ==
[2019-11-23 08:59] LABS: Basophils Absolute Auto 0.03 K/mm3 (0.00-0.10); Basophils Percent Auto 0.6 % (0.0-1.0); Eosinophils Absolute Auto 0.11 K/mm3 (0.02-0.50); Eosinophils Percent Auto 2.1 % (1.0-6.0); Hematocrit 39.8 % (37.0-46.0); Hemoglobin 12.5 g/dL (12.4-15.3); Immature Granulocyte Absolute 0.03 K/mm3 (0.00-0.00); Immature Granulocyte Percent A 0.6 % (0.0-0.0); Immature Platelet Fraction Pct 2.9 % (1.0-7.0); Lymphocytes Absolute Auto 0.42 K/mm3 (1.10-4.50); Mean Corpuscular HGB Conc 31.4 g/dL (32.0-36.0); Mean Corpuscular Hemoglobin 28.1 pg (27.0-31.0); Mean Corpuscular Volume 89.4 fL (78.0-102.0); Mean Platelet Volume 10.2 fl (8.7-11.0); Monocytes Percent Auto 9.6 % (2.0-11.0); Neutrophils Absolute Auto 4.1 K/mm3 (1.7-7.2); Neutrophils Percent Auto 79.1 % (50.0-70.0); Platelet Count Result 131 K/mm3 (150-420); Red Blood Count 4.45 M/mm3 (4.70-6.10); Red Cell Distribution Width 15.7 % (11.6-14.4); White Blood Count 5.2 K/mm3 (4.8-10.8)
[2019-11-23 10:13] LABS: Alanine Aminotransferase 18 U/L (16-63); Albumin Level 3.9 g/dL (3.4-5.0); Alkaline Phosphatase 54 U/L (46-116); Anion Gap 6 mmol/L (8-16); Aspartate Amino Transferase 18 U/L (15-37); Bilirubin,Total 0.5 mg/dL (0.00-1.00); Blood Urea Nitrogen 19 mg/dL (7-18); Calcium 8.8 mg/dL (8.5-10.1); Carbon Dioxide 30 mmol/L (21-32); Chloride 103 mmol/L (98-108); Estimated Glomerular Filt Rate 36; Glucose 119 mg/dL (70-99); Osmolality Calculated 291 mOsm/kg (285-295); Potassium 4.8 mmol/L (3.5-5.1); Sodium 139 mmol/L (136-145); Total Protein 7.2 g/dL (6.4-8.2)
[2019-11-23 10:31] LABS: Thyroid Stimulating Hormone Reflex 2.62 u/IU/mL (0.36-3.74)
[2019-11-28 05:33] LABS: Cortisol Baseline 11.4 mcg/dL (***)
== END 2019-11-23 08:45 | disposition home or self-care (01) ==
LOC: CHSLAB 08:45
PROVIDERS: PCP Internal Medicine; Visit Provider Internal Medicine Hematology & Oncology
DX: C7A.8 Other malignant neuroendocrine tumors (principal); E11.9 Type 2 diabetes mellitus without complications
CPT/HCPCS: 36415; 80053; 82533; 84443; 85025; 85055

== ENCOUNTER 2019-12-05 08:58 | Outpatient (CLI) | payer MEDICARE, SELFPAY ==
[2019-12-05 09:16] LABS: Basophils Absolute Auto 0.03 K/mm3 (0.00-0.10); Basophils Percent Auto 0.7 % (0.0-1.0); Eosinophils Percent Auto 2.2 % (1.0-6.0); Hematocrit 42.9 % (37.0-46.0); Hemoglobin 13.3 g/dL (12.4-15.3); Immature Granulocyte Absolute 0.03 K/mm3 (0.00-0.00); Immature Granulocyte Percent A 0.7 % (0.0-0.0); Immature Platelet Fraction Pct 3.1 % (1.0-7.0); Lymphocytes Absolute Auto 0.39 K/mm3 (1.10-4.50); Lymphocytes Percent Auto 8.6 % (18.0-42.0); Mean Corpuscular Hemoglobin 28.4 pg (27.0-31.0); Mean Corpuscular Volume 91.5 fL (78.0-102.0); Mean Platelet Volume 10.2 fl (8.7-11.0); Monocytes Absolute Auto 0.44 K/mm3 (0.10-0.90); Monocytes Percent Auto 9.7 % (2.0-11.0); Neutrophils Absolute Auto 3.5 K/mm3 (1.7-7.2); Neutrophils Percent Auto 78.1 % (50.0-70.0); Platelet Count Result 132 K/mm3 (150-420); Red Blood Count 4.69 M/mm3 (4.70-6.10); Red Cell Distribution Width 15.7 % (11.6-14.4); White Blood Count 4.5 K/mm3 (4.8-10.8)
[2019-12-05 10:08] LABS: Alanine Aminotransferase 19 U/L (16-63); Albumin Level 2.5 g/dL (3.4-5.0); Alkaline Phosphatase 64 U/L (46-116); Anion Gap 4 mmol/L (8-16); Aspartate Amino Transferase 16 U/L (15-37); Bilirubin,Total 0.7 mg/dL (0.00-1.00); Blood Urea Nitrogen 23 mg/dL (7-18); Calcium 8.9 mg/dL (8.5-10.1); Carbon Dioxide 32 mmol/L (21-32); Chloride 101 mmol/L (98-108); Estimated Glomerular Filt Rate 33; Glucose 154 mg/dL (70-99); Osmolality Calculated 290 mOsm/kg (285-295); Potassium 5.1 mmol/L (3.5-5.1); Sodium 137 mmol/L (136-145); Total Protein 7.6 g/dL (6.4-8.2)
[2019-12-09 08:02] LABS: Cortisol Random 13.3 mcg/dL (***)
== END 2019-12-05 08:59 | disposition home or self-care (01) ==
PROVIDERS: PCP Internal Medicine; Visit Provider Internal Medicine Hematology & Oncology
DX: C7A.090 Malignant carcinoid tumor of the bronchus and lung (principal)
CPT/HCPCS: 36415; 80053; 82533; 85025; 85055

== ENCOUNTER 2019-12-06 11:48 | Outpatient (CLI) | payer MEDICARE, SELFPAY ==
[2019-12-06 12:05] VITALS: BP 111/60; PULSE 72; RESP 18; TEMP 36.6; O2SAT 97
[2019-12-06] MEDS: SODIUM CHLORIDE 0.9% IV 250 ML 10 ML IVPB (12:17)
[2019-12-06] MEDS: diphenhydrAMINE HCl INJ 50 MG/ML VIAL 25 MG IV PUSH (12:17)
[2019-12-06] MEDS: FAMOTIDINE 20 MG/ISO 50 ML 20 MG/50 ML BAG 100 MG IVPB (12:18)
[2019-12-06] MEDS: ACETAMINOPHEN 325 MG TABLET 650 MG PO (12:19)
[2019-12-06 13:37] VITALS: BP 110/60; PULSE 72; RESP 18; TEMP 36.4; O2SAT 97
--- NOTE | 2019-12-06 13:46 | PC.NURSE ---
1200 Patient here for cycle 7 of 26 chemo therapy, Durvalumab Patient took time off of it for awhile deciding if it was worth it. Starting up again. Blood work from yesterday reviewed. OK'd. Teaching of chemo regimen given to patient with understanding. Durvalumab chemo administered. Tolerated well. Safe exit of hospital Will return in 2 weeks for cycle 8.
== END 2019-12-06 11:49 | disposition home or self-care (01) ==
LOC: CHSTREATRM 11:50
PROVIDERS: PCP Internal Medicine; Visit Provider Internal Medicine Hematology & Oncology
DX: Z51.11 Encounter for antineoplastic chemotherapy (principal); C7A.090 Malignant carcinoid tumor of the bronchus and lung; C7A.8 Other malignant neuroendocrine tumors
CPT/HCPCS: 96367; 96375; 96413; A9270; J1200; J7050; J9173

== ENCOUNTER 2019-12-14 08:47 | Outpatient (CLI) | payer MEDICARE, SELFPAY ==
[2019-12-14 09:07] LABS: Basophils Absolute Auto 0.03 K/mm3 (0.00-0.10); Basophils Percent Auto 0.7 % (0.0-1.0); Eosinophils Absolute Auto 0.12 K/mm3 (0.02-0.50); Eosinophils Percent Auto 2.6 % (1.0-6.0); Hematocrit 44.4 % (37.0-46.0); Hemoglobin 13.9 g/dL (12.4-15.3); Immature Granulocyte Absolute 0.02 K/mm3 (0.00-0.00); Immature Granulocyte Percent A 0.4 % (0.0-0.0); Lymphocytes Absolute Auto 0.39 K/mm3 (1.10-4.50); Lymphocytes Percent Auto 8.5 % (18.0-42.0); Mean Corpuscular HGB Conc 31.3 g/dL (32.0-36.0); Mean Corpuscular Hemoglobin 28.3 pg (27.0-31.0); Mean Corpuscular Volume 90.4 fL (78.0-102.0); Mean Platelet Volume 10.1 fl (8.7-11.0); Monocytes Absolute Auto 0.46 K/mm3 (0.10-0.90); Monocytes Percent Auto 10.1 % (2.0-11.0); Neutrophils Absolute Auto 3.6 K/mm3 (1.7-7.2); Neutrophils Percent Auto 77.7 % (50.0-70.0); Platelet Count Result 134 K/mm3 (150-420); Red Blood Count 4.91 M/mm3 (4.70-6.10); Red Cell Distribution Width 15.2 % (11.6-14.4); White Blood Count 4.6 K/mm3 (4.8-10.8)
[2019-12-14 09:59] LABS: Alanine Aminotransferase 24 U/L (16-63); Albumin Level 4.2 g/dL (3.4-5.0); Alkaline Phosphatase 65 U/L (46-116); Anion Gap 5 mmol/L (8-16); Aspartate Amino Transferase 17 U/L (15-37); Bilirubin,Total 0.7 mg/dL (0.00-1.00); Blood Urea Nitrogen 26 mg/dL (7-18); Carbon Dioxide 29 mmol/L (21-32); Chloride 102 mmol/L (98-108); Estimated Glomerular Filt Rate 36; Glucose 206 mg/dL (70-99); Osmolality Calculated 292 mOsm/kg (285-295); Potassium 5.4 mmol/L (3.5-5.1); Sodium 136 mmol/L (136-145); Total Protein 7.4 g/dL (6.4-8.2)
[2019-12-14 10:03] LABS: Thyroid Stimulating Hormone Reflex 3.12 u/IU/mL (0.36-3.74)
[2019-12-19 12:06] LABS: Cortisol Baseline 13.4 mcg/dL (***)
== END 2019-12-14 08:48 | disposition home or self-care (01) ==
LOC: CHSLAB 08:49
PROVIDERS: PCP Internal Medicine; Visit Provider Internal Medicine Hematology & Oncology
DX: C7A.8 Other malignant neuroendocrine tumors (principal); E03.9 Hypothyroidism, unspecified; E11.9 Type 2 diabetes mellitus without complications
CPT/HCPCS: 36415; 80053; 82533; 83036; 84443; 85025

== ENCOUNTER 2019-12-19 09:39 | Outpatient (CLI) | payer MEDICARE, SELFPAY ==
[2019-12-19 09:56] LABS: Basophils Absolute Auto 0.04 K/mm3 (0.00-0.10); Basophils Percent Auto 0.9 % (0.0-1.0); Eosinophils Percent Auto 2.2 % (1.0-6.0); Hematocrit 43.7 % (37.0-46.0); Immature Granulocyte Absolute 0.03 K/mm3 (0.00-0.00); Immature Granulocyte Percent A 0.7 % (0.0-0.0); Lymphocytes Absolute Auto 0.41 K/mm3 (1.10-4.50); Lymphocytes Percent Auto 9.2 % (18.0-42.0); Mean Corpuscular Hemoglobin 28.9 pg (27.0-31.0); Mean Corpuscular Volume 90.3 fL (78.0-102.0); Mean Platelet Volume 9.7 fl (8.7-11.0); Monocytes Absolute Auto 0.37 K/mm3 (0.10-0.90); Monocytes Percent Auto 8.3 % (2.0-11.0); Neutrophils Absolute Auto 3.5 K/mm3 (1.7-7.2); Neutrophils Percent Auto 78.7 % (50.0-70.0); Platelet Count Result 125 K/mm3 (150-420); Red Blood Count 4.84 M/mm3 (4.70-6.10); Red Cell Distribution Width 15.1 % (11.6-14.4); White Blood Count 4.5 K/mm3 (4.8-10.8)
[2019-12-19 11:39] LABS: Ferritin 54 ng/mL (26-388); Iron 71 ug/dL (65-175); Percent Iron Saturation 26 % (12-57)
[2019-12-19 12:03] LABS: Thyroid Stimulating Hormone Reflex 3.01 u/IU/mL (0.36-3.74)
== END 2019-12-19 09:40 | disposition home or self-care (01) ==
LOC: CHSLAB 09:43
PROVIDERS: PCP Internal Medicine; Visit Provider Internal Medicine Hematology & Oncology
DX: D50.9 Iron deficiency anemia, unspecified (principal); N18.3 Chronic kidney disease, stage 3 (moderate); E03.9 Hypothyroidism, unspecified; C7A.8 Other malignant neuroendocrine tumors; R73.09 Other abnormal glucose
CPT/HCPCS: 36415; 82728; 83036; 83540; 83550; 84443; 85025

== ENCOUNTER 2019-12-20 11:58 | Outpatient (CLI) | payer MEDICARE, SELFPAY ==
[2019-12-20] MEDS: SODIUM CHLORIDE 0.9% IV 250 ML 10 ML IVPB (12:00)
[2019-12-20] MEDS: ACETAMINOPHEN 325 MG TABLET 650 MG PO (12:22)
[2019-12-20] MEDS: diphenhydrAMINE HCl INJ 50 MG/ML VIAL 25 MG IV PUSH (12:23)
[2019-12-20] MEDS: FAMOTIDINE 20 MG/ISO 50 ML 20 MG/50 ML BAG 100 MG IVPB (12:23)
[2019-12-20 12:29] VITALS: BP 98/60; PULSE 76; RESP 14; TEMP 36.6; O2SAT 97
[2019-12-20 13:52] VITALS: BP 113/63; PULSE 78; RESP 14; TEMP 36.7; O2SAT 97
--- NOTE | 2019-12-20 13:54 | PC.NURSE ---
1200 Patient here for biweekly Durvalumab chemo therapy infusion. Labs reviewed from 12/13 and 12/18. Ok'd to proceed with chemo. Declines teaching on drug etc. Pre meds and chemo administered (see MAR). Tolerated well. Safe exit of hospital. Will return in two weeks for chemo.
== END 2019-12-20 11:59 | disposition home or self-care (01) ==
LOC: CHSTREATRM 12:00
PROVIDERS: PCP Internal Medicine; Visit Provider Internal Medicine Hematology & Oncology
DX: C7A.090 Malignant carcinoid tumor of the bronchus and lung (principal)
CPT/HCPCS: 96367; 96375; 96413; A9270; J1200; J7050; J9173

== ENCOUNTER 2019-12-26 12:21 | Outpatient (CLI) | payer MEDICARE, SELFPAY ==
--- NOTE | ~2019-12-26 | CT_ITS ---
EXAMINATION: CT chest abdomen pelvis wo con EXAM DATE: 12/26/2019 12:54 INDICATION: Follow-up neuroendocrine carcinoma, follow-up radiation treatment. Small new right lower lobe nodule. TECHNIQUE: Spiral CT of the chest, abdomen and pelvis was performed without contrast. Axial, beltran l and sagittal images were reviewed. Coronal maximum intensity pixel images of chest reviewed. The dose-length product (DLP) for this examination was 1310.73 mGy-cm. The exposure was tailored accordi ng to patient size (auto mA exposure control), and iterative reconstruction (ASIR) was used as additi onal dose reduction technique. Comparison is made to prior examination from 07/31/2019 FINDINGS: CHEST: There is mild emphysema. There is been interval increase in size of the previously seen right pleural effusion, now moderate, with adjacent atelectasis. No focal pleural nodularity identified. T here is been progression of the size of right middle lobe opacity with volume loss, appearance most c onsistent with subsegmental atelectasis. Trace pericardial effusion. Triple lead pacemaker/AICD bhakti ce. Tracheobronchial tree is patent. Indistinct fat plane surrounding the bronchi and in precarina l region, location to previously treated metastatic disease. Subcarinal soft tissue is either stable or slightly decreased in size compared to previous examination. There is no pneumothorax. Heart no rmal in size. There are likely coronary arterial stent or stents. Correlate with prior cardiac hist ory. ABDOMEN PELVIS: The liver, spleen, adrenal glands and pancreas are unremarkable. There are cholecyst ectomy clips. Portal vein measures 2.1 cm, dilated, could indicate portal hypertension. Some left adr enal gland nodularity is unchanged. There is no nephrolithiasis or hydronephrosis. Multiple renal cy sts, largest on the left exophytic at 10 cm. There is mild prostatomegaly. The bladder is unremarkab le. There is no retroperitoneal or pelvic lymphadenopathy. There is moderate scattered arterioscle rotic disease. The appendix is normal. The stomach and small bowel are unremarkable. There is moderate amount of c olonic stool. No free intraperitoneal gas. There are no osteoblastic or osteolytic lesions identi fied. There are old rib fractures. IMPRESSION: 1. Increase in size of moderate right pleural effusion. 2. Increase in amount of right middle lobe opacity with volume loss, most consistent with segmental atelectasis. Can't exclude underlying cancer. 3. Stable or slightly decreased subcarinal soft tissue. 4. Dilated portal vein consistent with portal hypertension. 5. Moderate colonic stool. Reviewed, dictated and finalized at location B. IMPRESSION: 1. Increase in size of moderate right pleural effusion. 2. Increase in amount of right middle lobe opacity with volume loss, most cons istent with segmental atelectasis. Can't exclude underlying cancer. 3. Stable or slightly decreased subcarinal soft tissue. 4. Dilated portal vein consistent with portal hypertension. 5. Moderate colonic stool.
== END 2019-12-26 12:22 | disposition home or self-care (01) ==
LOC: CHSIMG 12:22
PROVIDERS: PCP Internal Medicine; Visit Provider Internal Medicine Hematology & Oncology
DX: C7A.8 Other malignant neuroendocrine tumors (principal)
CPT/HCPCS: 71250; 74176

== ENCOUNTER 2020-01-02 08:41 | Outpatient (CLI) | payer MEDICARE, SELFPAY ==
[2020-01-02 09:03] LABS: Basophils Absolute Auto 0.03 K/mm3 (0.00-0.10); Basophils Percent Auto 0.6 % (0.0-1.0); Eosinophils Absolute Auto 0.08 K/mm3 (0.02-0.50); Eosinophils Percent Auto 1.5 % (1.0-6.0); Hematocrit 43.3 % (37.0-46.0); Hemoglobin 13.7 g/dL (12.4-15.3); Immature Granulocyte Absolute 0.03 K/mm3 (0.00-0.00); Immature Granulocyte Percent A 0.6 % (0.0-0.0); Lymphocytes Absolute Auto 0.37 K/mm3 (1.10-4.50); Lymphocytes Percent Auto 6.9 % (18.0-42.0); Mean Corpuscular HGB Conc 31.6 g/dL (32.0-36.0); Mean Corpuscular Hemoglobin 28.5 pg (27.0-31.0); Mean Platelet Volume 9.9 fl (8.7-11.0); Monocytes Absolute Auto 0.52 K/mm3 (0.10-0.90); Monocytes Percent Auto 9.7 % (2.0-11.0); Neutrophils Absolute Auto 4.3 K/mm3 (1.7-7.2); Neutrophils Percent Auto 80.7 % (50.0-70.0); Platelet Count Result 128 K/mm3 (150-420); Red Blood Count 4.81 M/mm3 (4.70-6.10); Red Cell Distribution Width 14.8 % (11.6-14.4); White Blood Count 5.4 K/mm3 (4.8-10.8)
[2020-01-02 10:36] LABS: Alanine Aminotransferase 19 U/L (16-63); Albumin Level 4.2 g/dL (3.4-5.0); Alkaline Phosphatase 67 U/L (46-116); Anion Gap 10 mmol/L (8-16); Aspartate Amino Transferase 12 U/L (15-37); Bilirubin,Total 0.7 mg/dL (0.00-1.00); Blood Urea Nitrogen 11 mg/dL (7-18); Calcium 8.8 mg/dL (8.5-10.1); Carbon Dioxide 29 mmol/L (21-32); Chloride 101 mmol/L (98-108); Estimated Glomerular Filt Rate 41; Glucose 139 mg/dL (70-99); Osmolality Calculated 291 mOsm/kg (285-295); Potassium 4.7 mmol/L (3.5-5.1); Sodium 140 mmol/L (136-145); Total Protein 7.5 g/dL (6.4-8.2)
[2020-01-05 07:40] LABS: Cortisol Random 12.7 mcg/dL (***)
== END 2020-01-02 08:42 | disposition home or self-care (01) ==
LOC: CHSLAB 08:45
PROVIDERS: PCP Internal Medicine; Visit Provider Internal Medicine Hematology & Oncology
DX: C7A.090 Malignant carcinoid tumor of the bronchus and lung (principal)
CPT/HCPCS: 36415; 80053; 82533; 85025

== ENCOUNTER 2020-01-03 12:10 | Outpatient (CLI) | payer MEDICARE, SELFPAY ==
[2020-01-03] MEDS: ACETAMINOPHEN 325 MG TABLET 650 MG PO (12:36)
[2020-01-03] MEDS: diphenhydrAMINE HCl INJ 50 MG/ML VIAL 25 MG IV PUSH (12:37)
[2020-01-03] MEDS: FAMOTIDINE 20 MG/ISO 50 ML 20 MG/50 ML BAG 100 MG IVPB (12:37)
[2020-01-03] MEDS: SODIUM CHLORIDE 0.9% IV 250 ML 10 ML IVPB (12:38)
[2020-01-03 12:40] VITALS: BP 116/68; PULSE 76; RESP 14; TEMP 36.6; O2SAT 97
[2020-01-03 14:14] VITALS: BP 128/70; PULSE 72; RESP 14; TEMP 36.4; O2SAT 97
--- NOTE | 2020-01-03 14:18 | PC.NURSE ---
Patient here for biweekly Chemotherapy- durvalumab. No concerns voiced. Labs reviewed and OK'd. Chemo administered. Tolerated well. Safe exit of hospital. Will return in two weeks.
== END 2020-01-03 12:11 | disposition home or self-care (01) ==
LOC: CHSTREATRM 12:12
PROVIDERS: PCP Internal Medicine; Visit Provider Internal Medicine Hematology & Oncology
DX: Z51.11 Encounter for antineoplastic chemotherapy (principal); C7A.090 Malignant carcinoid tumor of the bronchus and lung
CPT/HCPCS: 96367; 96375; 96413; A9270; J1200; J7050; J9173

== ENCOUNTER 2020-01-16 08:45 | Outpatient (CLI) | payer MEDICARE, SELFPAY ==
[2020-01-16 09:08] LABS: Basophils Absolute Auto 0.03 K/mm3 (0.00-0.10); Basophils Percent Auto 0.6 % (0.0-1.0); Eosinophils Absolute Auto 0.13 K/mm3 (0.02-0.50); Eosinophils Percent Auto 2.5 % (1.0-6.0); Hematocrit 43.3 % (37.0-46.0); Hemoglobin 13.8 g/dL (12.4-15.3); Immature Granulocyte Absolute 0.03 K/mm3 (0.00-0.00); Immature Granulocyte Percent A 0.6 % (0.0-0.0); Lymphocytes Absolute Auto 0.39 K/mm3 (1.10-4.50); Lymphocytes Percent Auto 7.4 % (18.0-42.0); Mean Corpuscular HGB Conc 31.9 g/dL (32.0-36.0); Mean Platelet Volume 9.9 fl (8.7-11.0); Monocytes Absolute Auto 0.52 K/mm3 (0.10-0.90); Monocytes Percent Auto 9.8 % (2.0-11.0); Neutrophils Absolute Auto 4.2 K/mm3 (1.7-7.2); Neutrophils Percent Auto 79.1 % (50.0-70.0); Platelet Count Result 143 K/mm3 (150-420); Red Blood Count 4.92 M/mm3 (4.70-6.10); Red Cell Distribution Width 14.2 % (11.6-14.4); White Blood Count 5.3 K/mm3 (4.8-10.8)
[2020-01-16 09:09] LABS: Hemoglobin A1C 6.5 % (<5.7)
[2020-01-16 09:51] LABS: Alanine Aminotransferase 23 U/L (16-63); Albumin Level 3.9 g/dL (3.4-5.0); Alkaline Phosphatase 66 U/L (46-116); Anion Gap 8 mmol/L (8-16); Aspartate Amino Transferase 17 U/L (15-37); Bilirubin,Total 0.6 mg/dL (0.00-1.00); Blood Urea Nitrogen 24 mg/dL (7-18); Calcium 8.8 mg/dL (8.5-10.1); Carbon Dioxide 28 mmol/L (21-32); Chloride 104 mmol/L (98-108); Estimated Glomerular Filt Rate 41; Glucose 143 mg/dL (70-99); Osmolality Calculated 296 mOsm/kg (285-295); Potassium 5.1 mmol/L (3.5-5.1); Sodium 140 mmol/L (136-145); Total Protein 7.1 g/dL (6.4-8.2)
[2020-01-16 09:52] LABS: Thyroid Stimulating Hormone Reflex 2.47 u/IU/mL (0.36-3.74)
[2020-01-20 06:32] LABS: Cortisol Random 14.5 mcg/dL (***)
== END 2020-01-16 08:46 | disposition home or self-care (01) ==
LOC: CHSLAB 08:47
PROVIDERS: PCP Internal Medicine; Visit Provider Internal Medicine Hematology & Oncology
DX: C7A.090 Malignant carcinoid tumor of the bronchus and lung (principal); C7A.8 Other malignant neuroendocrine tumors; E03.9 Hypothyroidism, unspecified; E11.9 Type 2 diabetes mellitus without complications
CPT/HCPCS: 36415; 80053; 82533; 83036; 84443; 85025

== ENCOUNTER 2020-01-17 11:52 | Outpatient (CLI) | payer MEDICARE, SELFPAY ==
[2020-01-17 12:14] VITALS: BP 113/69; PULSE 74; RESP 16; TEMP 35.9; O2SAT 97
[2020-01-17] MEDS: ACETAMINOPHEN 325 MG TABLET 650 MG PO (12:15)
[2020-01-17] MEDS: SODIUM CHLORIDE 0.9% IV 250 ML 10 ML IVPB (12:15)
[2020-01-17] MEDS: diphenhydrAMINE HCl INJ 50 MG/ML VIAL 25 MG IV PUSH (12:16)
[2020-01-17] MEDS: FAMOTIDINE 20 MG/ISO 50 ML 20 MG/50 ML BAG 100 MG IVPB (12:17)
[2020-01-17 13:45] VITALS: BP 110/60; PULSE 74; RESP 14; TEMP 36.1; O2SAT 98
--- NOTE | 2020-01-17 13:46 | PC.NURSE ---
1215 Patient here for biweekly chemo Durvalumab IV infusion regimen. No concerns voiced. Reports had thoracentesis last week and breathing easier. Chemo infusion regimen administered. Tolerated well.Safe exit of hospital. Will return in 2 weeks for next treatment.
== END 2020-01-17 11:53 | disposition home or self-care (01) ==
LOC: CHSTREATRM 11:55
PROVIDERS: PCP Internal Medicine; Visit Provider Internal Medicine Hematology & Oncology
DX: C7A.090 Malignant carcinoid tumor of the bronchus and lung (principal)
CPT/HCPCS: 96367; 96375; 96413; A9270; J1200; J7050; J9173

== ENCOUNTER 2020-01-30 08:50 | Outpatient (CLI) | payer MEDICARE, SELFPAY ==
[2020-01-30 09:08] LABS: Basophils Absolute Auto 0.02 K/mm3 (0.00-0.10); Basophils Percent Auto 0.4 % (0.0-1.0); Eosinophils Absolute Auto 0.09 K/mm3 (0.02-0.50); Eosinophils Percent Auto 1.9 % (1.0-6.0); Hematocrit 41.6 % (37.0-46.0); Immature Granulocyte Absolute 0.03 K/mm3 (0.00-0.00); Immature Granulocyte Percent A 0.6 % (0.0-0.0); Lymphocytes Absolute Auto 0.37 K/mm3 (1.10-4.50); Lymphocytes Percent Auto 7.8 % (18.0-42.0); Mean Corpuscular HGB Conc 31.3 g/dL (32.0-36.0); Mean Corpuscular Hemoglobin 27.6 pg (27.0-31.0); Mean Corpuscular Volume 88.3 fL (78.0-102.0); Monocytes Absolute Auto 0.52 K/mm3 (0.10-0.90); Monocytes Percent Auto 10.9 % (2.0-11.0); Neutrophils Absolute Auto 3.7 K/mm3 (1.7-7.2); Neutrophils Percent Auto 78.4 % (50.0-70.0); Platelet Count Result 125 K/mm3 (150-420); Red Blood Count 4.71 M/mm3 (4.70-6.10); Red Cell Distribution Width 14.7 % (11.6-14.4); White Blood Count 4.8 K/mm3 (4.8-10.8)
[2020-01-30 09:56] LABS: Alanine Aminotransferase 20 U/L (16-63); Alkaline Phosphatase 68 U/L (46-116); Anion Gap 6 mmol/L (8-16); Aspartate Amino Transferase 16 U/L (15-37); Bilirubin,Total 0.7 mg/dL (0.00-1.00); Blood Urea Nitrogen 19 mg/dL (7-18); Calcium 8.9 mg/dL (8.5-10.1); Carbon Dioxide 29 mmol/L (21-32); Chloride 102 mmol/L (98-108); Estimated Glomerular Filt Rate 37; Glucose 142 mg/dL (70-99); Osmolality Calculated 288 mOsm/kg (285-295); Potassium 5.4 mmol/L (3.5-5.1); Sodium 137 mmol/L (136-145); Thyroid Stimulating Hormone 3.59 uIU/mL (0.36-3.74); Total Protein 7.1 g/dL (6.4-8.2)
[2020-02-03 22:15] LABS: Cortisol Random 17.8 mcg/dL (***)
== END 2020-01-30 08:51 | disposition home or self-care (01) ==
LOC: CHSLAB 08:55
PROVIDERS: PCP Internal Medicine; Visit Provider Internal Medicine Hematology & Oncology
DX: C7A.8 Other malignant neuroendocrine tumors (principal); E03.9 Hypothyroidism, unspecified
CPT/HCPCS: 36415; 80053; 82533; 84443; 85025

== ENCOUNTER 2020-01-31 11:57 | Outpatient (CLI) | payer MEDICARE, SELFPAY ==
[2020-01-31] MEDS: SODIUM CHLORIDE 0.9% IV 250 ML 10 ML IVPB (12:15)
[2020-01-31] MEDS: ACETAMINOPHEN 325 MG TABLET 650 MG PO (12:25)
[2020-01-31] MEDS: diphenhydrAMINE HCl INJ 50 MG/ML VIAL 25 MG IV PUSH (12:26)
[2020-01-31] MEDS: FAMOTIDINE 20 MG/ISO 50 ML 20 MG/50 ML BAG 100 MG IVPB (12:26)
[2020-01-31 12:40] VITALS: BP 128/60; PULSE 72; RESP 18; TEMP 36.6; O2SAT 95
[2020-01-31 14:32] VITALS: BP 118/70; PULSE 70; RESP 14; TEMP 36.6; O2SAT 95
--- NOTE | 2020-01-31 14:34 | PC.NURSE ---
Patient here for cycle 11 chemo Durvalumab infusion. No concerns voiced. Labs reviewed and ok'd Chemo regimen administered. Tolerated well Safe exit of hospital. Feb 14, 2020 will be next treatment.
== END 2020-01-31 11:58 | disposition home or self-care (01) ==
LOC: CHSTREATRM 12:00
PROVIDERS: PCP Internal Medicine; Visit Provider Internal Medicine Hematology & Oncology
DX: C7A.090 Malignant carcinoid tumor of the bronchus and lung (principal)
CPT/HCPCS: 96367; 96375; 96413; A9270; J1200; J7050; J9173

== ENCOUNTER 2020-02-13 08:58 | Outpatient (CLI) | payer MEDICARE, SELFPAY ==
--- NOTE | ~2020-02-13 | XR_ITS ---
EXAMINATION: XR chest 2V DATE: 02/13/2020 12:16 INDICATION: Pleural effusion. Chills. TECHNIQUE: Frontal and lateral views of the chest were obtained. COMPARISON: Chest 2 views 10/31/2019, chest CT 12/26/2019 FINDINGS: There are lucencies in the lungs, consistent with emphysema. There is a moderate-sized righ t pleural effusion. There are airspace opacities at right lung base. No pneumothorax. Calcified right hilar and mediastinal lymph nodes are consistent with old granulomatous disease. The heart size is n ormal. There is a left chest pacer/defibrillator with leads in right atrium, right ventricle, and cor onary sinus. There is a suture anchor in right humeral head. IMPRESSION: 1. Stable moderate-sized right pleural effusion. 2. Stable airspace opacities at right lung base, likely atelectasis. 3. Emphysema. Reviewed, dictated and finalized at location B. TE NOZZLE OPERATOR
[2020-02-13 09:10] LABS: Basophils Absolute Auto 0.03 K/mm3 (0.00-0.10); Basophils Percent Auto 0.6 % (0.0-1.0); Eosinophils Percent Auto 1.9 % (1.0-6.0); Hematocrit 42.4 % (37.0-46.0); Hemoglobin 13.7 g/dL (12.4-15.3); Immature Granulocyte Absolute 0.02 K/mm3 (0.00-0.00); Immature Granulocyte Percent A 0.4 % (0.0-0.0); Lymphocytes Absolute Auto 0.43 K/mm3 (1.10-4.50); Mean Corpuscular HGB Conc 32.3 g/dL (32.0-36.0); Mean Corpuscular Volume 86.7 fL (78.0-102.0); Mean Platelet Volume 9.7 fl (8.7-11.0); Monocytes Absolute Auto 0.56 K/mm3 (0.10-0.90); Monocytes Percent Auto 10.4 % (2.0-11.0); Neutrophils Absolute Auto 4.2 K/mm3 (1.7-7.2); Neutrophils Percent Auto 78.7 % (50.0-70.0); Platelet Count Result 141 K/mm3 (150-420); Red Blood Count 4.89 M/mm3 (4.70-6.10); Red Cell Distribution Width 14.3 % (11.6-14.4); White Blood Count 5.4 K/mm3 (4.8-10.8)
[2020-02-13 10:52] LABS: Alanine Aminotransferase 20 U/L (16-63); Albumin Level 4.1 g/dL (3.4-5.0); Alkaline Phosphatase 60 U/L (46-116); Anion Gap 8 mmol/L (8-16); Aspartate Amino Transferase 21 U/L (15-37); Bilirubin,Total 0.7 mg/dL (0.00-1.00); Blood Urea Nitrogen 26 mg/dL (7-18); Carbon Dioxide 28 mmol/L (21-32); Chloride 103 mmol/L (98-108); Estimated Glomerular Filt Rate 38; Glucose 113 mg/dL (70-99); Osmolality Calculated 293 mOsm/kg (285-295); Potassium 5.2 mmol/L (3.5-5.1); Sodium 139 mmol/L (136-145); Thyroid Stimulating Hormone 3.19 uIU/mL (0.36-3.74); Total Protein 7.4 g/dL (6.4-8.2)
[2020-02-13 12:19] LABS: Add Urine Microscopic? NO; Appearance Urine Clear (Clear); Bilirubin Urine Negative (Negative); Blood Urine Negative (Negative); Color Urine Yellow (Yellow); Glucose Urine UA Negative (Negative); Ketones Urine Negative (Negative); Leukocyte Esterase Ur Negative (Negative); Nitrate Urine Negative (Negative); Protein Urine Negative (Negative); Specific Grav Ur 1.015 (1.010-1.020); pH Urine 6.5 (5.0-8.0)
[2020-02-15 12:03] LABS: Cortisol Random 14.2 mcg/dL (***)
== END 2020-02-13 08:59 | disposition home or self-care (01) ==
LOC: CHSTREATRM 09:01 → CHSLAB 09:02
PROVIDERS: PCP Internal Medicine; Visit Provider Internal Medicine Hematology & Oncology
DX: J90 Pleural effusion, not elsewhere classified (principal); R68.83 Chills (without fever); N39.0 Urinary tract infection, site not specified; C7A.090 Malignant carcinoid tumor of the bronchus and lung
CPT/HCPCS: 36415; 71046; 80053; 81003; 82533; 84443; 85025; 87086; 87088

== ENCOUNTER 2020-02-14 11:44 | Outpatient (CLI) | payer MEDICARE, SELFPAY ==
[2020-02-14] MEDS: diphenhydrAMINE HCl INJ 50 MG/ML VIAL 25 MG IV PUSH (12:04)
[2020-02-14] MEDS: ACETAMINOPHEN 325 MG TABLET 650 MG PO (12:05)
[2020-02-14] MEDS: FAMOTIDINE 20 MG/ISO 50 ML 20 MG/50 ML BAG 100 MG IVPB (12:05)
[2020-02-14] MEDS: SODIUM CHLORIDE 0.9% IV 250 ML 10 ML IVPB (12:06)
[2020-02-14 12:19] VITALS: BP 115/63; PULSE 72; RESP 18; TEMP 36.6; O2SAT 97
[2020-02-14 13:47] VITALS: BP 122/60; PULSE 72; RESP 16; TEMP 36.6; O2SAT 98
--- NOTE | 2020-02-14 14:12 | PC.NURSE ---
Patient here for Durvalumab IV chemo therapy regime. Reports had some labs chest xray r/t feeling fatigue and had some chills. Reports never a fever. Labs OK'd chest xray stable for patient at this time. Dr. Watt and Dr. Rodriguez both saw all results. Ok'd for chemo today. Denies chills today. Just reports tired. Chemo regime administered. Tolerated it well. Safe exit of hospital. Will return in two weeks Tuesday 1200 for next treatment.
== END 2020-02-14 11:45 | disposition home or self-care (01) ==
LOC: CHSTREATRM 11:46
PROVIDERS: PCP Internal Medicine; Visit Provider Internal Medicine Hematology & Oncology
DX: Z51.11 Encounter for antineoplastic chemotherapy (principal); C7A.090 Malignant carcinoid tumor of the bronchus and lung
CPT/HCPCS: 96367; 96375; 96413; A9270; J1200; J7050; J9173

== ENCOUNTER 2020-02-27 08:41 | Outpatient (CLI) | payer MEDICARE, SELFPAY ==
[2020-02-27 08:54] LABS: Hematocrit 39.1 % (37.0-46.0); Hemoglobin 12.3 g/dL (12.4-15.3); Mean Corpuscular HGB Conc 31.5 g/dL (32.0-36.0); Mean Corpuscular Hemoglobin 27.5 pg (27.0-31.0); Mean Corpuscular Volume 87.5 fL (78.0-102.0); Mean Platelet Volume 10.3 fl (8.7-11.0); Platelet Count Result 118 K/mm3 (150-420); Red Blood Count 4.47 M/mm3 (4.70-6.10); Red Cell Distribution Width 14.8 % (11.6-14.4); White Blood Count 3.8 K/mm3 (4.8-10.8)
[2020-02-27 09:29] LABS: Band Neutrophils Percent 0 % (0-6); Eosinophils Absolute Manual 0.15 K/mm3 (0.02-0.5); Eosinophils Percent Manual 4 % (1-6); Lymphocytes Percent Manual 8 % (18-44); Metamyelocytes Percent 1 %; Monocytes Absolute Manual 0.26 K/mm3 (0.1-0.90); Monocytes Percent Manual 7 % (3-9); Neutrophils Absolute Manual 3.04 K/mm3 (1.3-6.7); Neutrophils Percent Manual 80 % (46-73); Total Cells Counted 100
[2020-02-27 09:55] LABS: Alanine Aminotransferase 15 U/L (16-63); Albumin Level 3.8 g/dL (3.4-5.0); Alkaline Phosphatase 65 U/L (46-116); Anion Gap 7 mmol/L (8-16); Aspartate Amino Transferase 14 U/L (15-37); Bilirubin,Total 0.8 mg/dL (0.00-1.00); Blood Urea Nitrogen 19 mg/dL (7-18); Calcium 8.5 mg/dL (8.5-10.1); Carbon Dioxide 29 mmol/L (21-32); Chloride 102 mmol/L (98-108); Estimated Glomerular Filt Rate 36; Glucose 181 mg/dL (70-99); Osmolality Calculated 293 mOsm/kg (285-295); Potassium 4.6 mmol/L (3.5-5.1); Sodium 138 mmol/L (136-145); Thyroid Stimulating Hormone 2.19 uIU/mL (0.36-3.74); Total Protein 6.9 g/dL (6.4-8.2)
[2020-03-03 08:10] LABS: Cortisol Random 12.3 mcg/dL (***)
== END 2020-02-27 08:42 | disposition home or self-care (01) ==
LOC: CHSLAB 08:43
PROVIDERS: PCP Internal Medicine; Visit Provider Internal Medicine Hematology & Oncology
DX: C7A.090 Malignant carcinoid tumor of the bronchus and lung (principal); Z79.899 Other long term (current) drug therapy
CPT/HCPCS: 36415; 80053; 82533; 84443; 85025

== ENCOUNTER 2020-02-29 11:51 | Outpatient (CLI) | payer MEDICARE, SELFPAY ==
[2020-02-29] MEDS: SODIUM CHLORIDE 0.9% IV 250 ML 10 ML IVPB (12:10)
[2020-02-29] MEDS: ACETAMINOPHEN 325 MG TABLET 650 MG PO (12:15)
[2020-02-29] MEDS: FAMOTIDINE 20 MG/ISO 50 ML 20 MG/50 ML BAG 100 MG IVPB (12:20)
[2020-02-29] MEDS: diphenhydrAMINE HCl INJ 50 MG/ML VIAL 25 MG IV PUSH (12:21)
[2020-02-29 14:01] VITALS: BP 118/64; PULSE 72; RESP 16; TEMP 36.5; O2SAT 94
--- NOTE | 2020-02-29 14:03 | PC.NURSE ---
Patient here for chemo - Durvalumab regime. Only comment was he is scheduled for thoracentesis this coming Tuesday. Has some dyspnea with exertion, but recovers once resting. Labs reviewed and ok'd. Chemo regime administered. Tolerated well. Safe exit of hospital. Will return on .
== END 2020-02-29 11:52 | disposition home or self-care (01) ==
LOC: CHSTREATRM 11:52
PROVIDERS: PCP Internal Medicine; Visit Provider Internal Medicine Hematology & Oncology
DX: Z51.11 Encounter for antineoplastic chemotherapy (principal); C7A.090 Malignant carcinoid tumor of the bronchus and lung
CPT/HCPCS: 96367; 96375; 96413; A9270; J1200; J7050; J9173

== ENCOUNTER 2020-03-12 08:49 | Outpatient (CLI) | payer MEDICARE, SELFPAY ==
[2020-03-12 09:12] LABS: Basophils Absolute Auto 0.03 K/mm3 (0.00-0.10); Basophils Percent Auto 0.7 % (0.0-1.0); Eosinophils Absolute Auto 0.08 K/mm3 (0.02-0.50); Eosinophils Percent Auto 1.9 % (1.0-6.0); Hematocrit 40.8 % (37.0-46.0); Immature Granulocyte Absolute 0.02 K/mm3 (0.00-0.00); Immature Granulocyte Percent A 0.5 % (0.0-0.0); Lymphocytes Absolute Auto 0.35 K/mm3 (1.10-4.50); Lymphocytes Percent Auto 8.3 % (18.0-42.0); Mean Corpuscular HGB Conc 31.9 g/dL (32.0-36.0); Mean Corpuscular Hemoglobin 27.8 pg (27.0-31.0); Mean Corpuscular Volume 87.2 fL (78.0-102.0); Mean Platelet Volume 10.4 fl (8.7-11.0); Monocytes Percent Auto 9.5 % (2.0-11.0); Neutrophils Absolute Auto 3.3 K/mm3 (1.7-7.2); Neutrophils Percent Auto 79.1 % (50.0-70.0); Platelet Count Result 135 K/mm3 (150-420); Red Blood Count 4.68 M/mm3 (4.70-6.10); Red Cell Distribution Width 14.4 % (11.6-14.4); White Blood Count 4.2 K/mm3 (4.8-10.8)
[2020-03-12 10:03] LABS: Alanine Aminotransferase 19 U/L (16-63); Alkaline Phosphatase 66 U/L (46-116); Anion Gap 9 mmol/L (8-16); Aspartate Amino Transferase 19 U/L (15-37); Bilirubin,Total 0.6 mg/dL (0.00-1.00); Blood Urea Nitrogen 21 mg/dL (7-18); Calcium 8.9 mg/dL (8.5-10.1); Carbon Dioxide 27 mmol/L (21-32); Chloride 101 mmol/L (98-108); Estimated Glomerular Filt Rate 39; Glucose 220 mg/dL (70-99); Osmolality Calculated 294 mOsm/kg (285-295); Potassium 5.1 mmol/L (3.5-5.1); Sodium 137 mmol/L (136-145); Total Protein 7.3 g/dL (6.4-8.2)
[2020-03-12 10:04] LABS: Thyroid Stimulating Hormone Reflex 0.78 u/IU/mL (0.36-3.74)
== END 2020-03-12 08:50 | disposition home or self-care (01) ==
PROVIDERS: PCP Internal Medicine; Visit Provider Internal Medicine Hematology & Oncology
DX: C7A.8 Other malignant neuroendocrine tumors (principal); E03.9 Hypothyroidism, unspecified; E11.9 Type 2 diabetes mellitus without complications
CPT/HCPCS: 36415; 80053; 82533; 84443; 85025

== ENCOUNTER 2020-03-13 11:50 | Outpatient (CLI) | payer MEDICARE, SELFPAY ==
--- NOTE | 2020-03-13 12:07 | PC.NURSE ---
Pt to room 202 amb per self. A&Ox3. Has no complaints or concerns. Oriented to room, call buchanan in reach. Reminded to call with needs.
[2020-03-13] MEDS: SODIUM CHLORIDE 0.9% IV 250 ML 10 ML IVPB (12:22)
[2020-03-13] MEDS: FAMOTIDINE 20 MG/ISO 50 ML 20 MG/50 ML BAG 100 MG IVPB (12:22)
[2020-03-13] MEDS: ACETAMINOPHEN 325 MG TABLET 650 MG PO (12:23)
[2020-03-13] MEDS: diphenhydrAMINE HCl INJ 50 MG/ML VIAL 25 MG IV PUSH (12:24)
[2020-03-13 13:00] VITALS: BP 96/63; PULSE 69; RESP 20; TEMP 36.3; O2SAT 99
--- NOTE | 2020-03-13 14:07 | PC.NURSE ---
All medications infused. Pt tolerated well. Pt has no questions or concerns. Discharged to home amb per self.
== END 2020-03-13 11:51 | disposition home or self-care (01) ==
LOC: CHSTREATRM 11:51
PROVIDERS: PCP Internal Medicine; Visit Provider Internal Medicine Hematology & Oncology
DX: Z51.11 Encounter for antineoplastic chemotherapy (principal); C7A.8 Other malignant neuroendocrine tumors; C7A.090 Malignant carcinoid tumor of the bronchus and lung
CPT/HCPCS: 96365; 96366; 96367; 96374; 96375; 96413; A9270; J1200; J7050; J9173

== ENCOUNTER 2020-03-17 08:06 | Outpatient (CLI) | payer MEDICARE, SELFPAY ==
--- NOTE | ~2020-03-17 | CT_ITS ---
EXAMINATION: CT chest abdomen pelvis wo con EXAM DATE: 03/17/2020 08:28 INDICATION: Neuroendocrine carcinoma. Shortness of breath. Patient scheduled for thoracentesis. Cough . Contrast allergy. TECHNIQUE: Spiral CT of the chest, abdomen and pelvis was performed without contrast. Axial, beltran l and sagittal images were reviewed. Coronal maximum intensity pixel images of chest reviewed. The dose-length product (DLP) for this examination was 927.62 mGy-cm. The exposure was tailored accordin g to patient size (auto mA exposure control), and iterative reconstruction (ASIR) was used as additio nal dose reduction technique. Comparison is made to prior examination from 12/26/2019. FINDINGS: CHEST: There is apparent thickening suspected of the mid esophageal wall, is more pronounced than on prior study. There is a moderate sized right-sided pleural effusion which appears most likely nonlocu lated. Small pericardial effusion. Mediastinal granulomas. Pacemaker/AICD device. There is segmental right middle lobe and right lower lobe atelectasis. Mild emphysema. Tracheobronchial tree is patent. There is no mediastinal, hilar or axillary lymphadenopathy. Amount of subcarinal soft tissue is unc hanged. There is no pneumothorax. Heart normal in size. There are likely coronary arterial stent or stents. Correlate with prior cardiac history. ABDOMEN PELVIS: The portal vein is again dilated suggesting portal hypertension. Spleen measures 16.6 cm in craniocaudal dimension, mildly enlarged. The liver, adrenal glands and pancreas are unremarka ble. There are cholecystectomy clips. There are bilateral renal cysts, more on the left measuring u p to 11 cm. No nephrolithiasis or hydronephrosis. There is mild prostatomegaly. The bladder is unrem arkable. There is no retroperitoneal or pelvic lymphadenopathy. There is moderate scattered arteri osclerotic disease. The appendix is normal. The stomach and small bowel are unremarkable. There is expected amount of c olonic stool. No free intraperitoneal gas. There are no osteoblastic or osteolytic lesions identi fied. IMPRESSION: 1. Development of mid esophageal wall thickening, could be esophagitis, radiation related change or malignancy. Other findings are stable. 2. Moderate right-sided pleural effusion likely loculated, adjacent atelectasis. Can't exclude under lying cancer. 3. Mild hepatosplenomegaly. Portal hypertension. 4. Mild emphysema. Reviewed, dictated and finalized at location A. E COUNTER IMPRESSION: 1. Development of mid esophageal wall thickening, could be esophagitis, radiat ion related change or malignancy. Other findings are stable. 2. Moderate right-sided pleural effusion likely loculated, adjacent atelectasi s. Can't exclude underlying cancer. 3. Mild hepatosplenomegaly. Portal hypertension. 4. Mild emphysema.
== END 2020-03-17 08:07 | disposition home or self-care (01) ==
LOC: CHSIMG 08:07
PROVIDERS: PCP Internal Medicine; Visit Provider Internal Medicine Hematology & Oncology
DX: C7A.8 Other malignant neuroendocrine tumors (principal)
CPT/HCPCS: 71250; 74176

== ENCOUNTER 2020-03-19 13:27 | Outpatient (CLI) | payer MEDICARE, SELFPAY | END 2020-03-19 13:28 | disposition home or self-care (01) | LOC: CHSLAB 13:29 | PROVIDERS: PCP Internal Medicine; Visit Provider Internal Medicine | DX: Z20.828 Contact with and (suspected) exposure to other viral communicable diseases (principal) | CPT/HCPCS: 36415; 86769 ==

== ENCOUNTER 2020-03-26 08:31 | Outpatient (CLI) | payer MEDICARE, SELFPAY ==
[2020-03-26 08:47] LABS: Basophils Absolute Auto 0.04 K/mm3 (0.00-0.10); Basophils Percent Auto 0.8 % (0.0-1.0); Hematocrit 40.9 % (37.0-46.0); Hemoglobin 12.8 g/dL (12.4-15.3); Immature Granulocyte Absolute 0.02 K/mm3 (0.00-0.00); Immature Granulocyte Percent A 0.4 % (0.0-0.0); Lymphocytes Absolute Auto 0.43 K/mm3 (1.10-4.50); Lymphocytes Percent Auto 8.6 % (18.0-42.0); Mean Corpuscular HGB Conc 31.3 g/dL (32.0-36.0); Mean Corpuscular Hemoglobin 27.1 pg (27.0-31.0); Mean Corpuscular Volume 86.7 fL (78.0-102.0); Mean Platelet Volume 9.8 fl (8.7-11.0); Neutrophils Absolute Auto 3.9 K/mm3 (1.7-7.2); Neutrophils Percent Auto 78.2 % (50.0-70.0); Platelet Count Result 118 K/mm3 (150-420); Red Blood Count 4.72 M/mm3 (4.70-6.10); Red Cell Distribution Width 14.6 % (11.6-14.4)
[2020-03-26 10:04] LABS: Alanine Aminotransferase 18 U/L (16-63); Albumin Level 3.9 g/dL (3.4-5.0); Alkaline Phosphatase 65 U/L (46-116); Anion Gap 5 mmol/L (8-16); Aspartate Amino Transferase 15 U/L (15-37); Bilirubin,Total 0.8 mg/dL (0.00-1.00); Blood Urea Nitrogen 19 mg/dL (7-18); Calcium 9.1 mg/dL (8.5-10.1); Carbon Dioxide 30 mmol/L (21-32); Chloride 101 mmol/L (98-108); Estimated Glomerular Filt Rate 40; Glucose 134 mg/dL (70-99); Osmolality Calculated 286 mOsm/kg (285-295); Potassium 4.7 mmol/L (3.5-5.1); Sodium 136 mmol/L (136-145); Total Protein 7.3 g/dL (6.4-8.2)
== END 2020-03-26 08:32 | disposition home or self-care (01) ==
PROVIDERS: PCP Internal Medicine; Visit Provider Internal Medicine Hematology & Oncology
DX: C7A.090 Malignant carcinoid tumor of the bronchus and lung (principal)
CPT/HCPCS: 36415; 80053; 85025

== ENCOUNTER 2020-03-27 11:24 | Outpatient (CLI) | payer MEDICARE, SELFPAY ==
[2020-03-27] MEDS: FAMOTIDINE 20 MG/ISO 50 ML 20 MG/50 ML BAG 100 MG IVPB (11:58)
[2020-03-27] MEDS: ACETAMINOPHEN 325 MG TABLET 650 MG PO (11:59)
[2020-03-27] MEDS: diphenhydrAMINE HCl INJ 50 MG/ML VIAL 25 MG IV PUSH (12:00)
[2020-03-27] MEDS: SODIUM CHLORIDE 0.9% IV 250 ML 10 ML IVPB (12:00)
[2020-03-27 12:07] VITALS: BP 102/66; PULSE 72; RESP 14; TEMP 36.6; O2SAT 94
[2020-03-27 13:30] VITALS: BP 115/65; PULSE 72; RESP 16; TEMP 36.4; O2SAT 95
--- NOTE | 2020-03-27 14:00 | PC.NURSE ---
Patient here for biweekly Durvallumab chemo regimen. Labs reviewed from 03/26 and ok'd. Reports had a throacentsis this past Tuesday and is breathing easier. Chemo regimen administered. Tolerated well. Safe exit of hospital. Will return Apr 10.
== END 2020-03-27 11:25 | disposition home or self-care (01) ==
PROVIDERS: PCP Internal Medicine; Visit Provider Internal Medicine Hematology & Oncology
DX: C7A.090 Malignant carcinoid tumor of the bronchus and lung (principal)
CPT/HCPCS: 96367; 96375; 96413; A9270; J1200; J7050; J9173

== ENCOUNTER 2020-04-09 08:18 | Outpatient (CLI) | payer MEDICARE, SELFPAY ==
[2020-04-09 08:31] LABS: Basophils Absolute Auto 0.03 K/mm3 (0.00-0.10); Basophils Percent Auto 0.7 % (0.0-1.0); Eosinophils Absolute Auto 0.12 K/mm3 (0.02-0.50); Eosinophils Percent Auto 2.7 % (1.0-6.0); Hematocrit 39.7 % (37.0-46.0); Hemoglobin 12.4 g/dL (12.4-15.3); Immature Granulocyte Absolute 0.02 K/mm3 (0.00-0.00); Immature Granulocyte Percent A 0.4 % (0.0-0.0); Lymphocytes Absolute Auto 0.46 K/mm3 (1.10-4.50); Lymphocytes Percent Auto 10.2 % (18.0-42.0); Mean Corpuscular HGB Conc 31.2 g/dL (32.0-36.0); Mean Corpuscular Hemoglobin 26.7 pg (27.0-31.0); Mean Corpuscular Volume 85.4 fL (78.0-102.0); Mean Platelet Volume 9.4 fl (8.7-11.0); Monocytes Absolute Auto 0.44 K/mm3 (0.10-0.90); Monocytes Percent Auto 9.7 % (2.0-11.0); Neutrophils Absolute Auto 3.5 K/mm3 (1.7-7.2); Neutrophils Percent Auto 76.3 % (50.0-70.0); Platelet Count Result 139 K/mm3 (150-420); Red Blood Count 4.65 M/mm3 (4.70-6.10); Red Cell Distribution Width 14.9 % (11.6-14.4); White Blood Count 4.5 K/mm3 (4.8-10.8)
[2020-04-09 09:29] LABS: Alanine Aminotransferase 15 U/L (16-63); Albumin Level 3.9 g/dL (3.4-5.0); Alkaline Phosphatase 60 U/L (46-116); Anion Gap 7 mmol/L (8-16); Aspartate Amino Transferase 14 U/L (15-37); Bilirubin,Total 0.7 mg/dL (0.00-1.00); Blood Urea Nitrogen 23 mg/dL (7-18); Calcium 9.4 mg/dL (8.5-10.1); Carbon Dioxide 28 mmol/L (21-32); Chloride 99 mmol/L (98-108); Estimated Glomerular Filt Rate 32; Glucose 175 mg/dL (70-99); Osmolality Calculated 285 mOsm/kg (285-295); Potassium 5.3 mmol/L (3.5-5.1); Sodium 134 mmol/L (136-145); Total Protein 7.2 g/dL (6.4-8.2)
== END 2020-04-09 08:19 | disposition home or self-care (01) ==
LOC: CHSLAB 08:21
PROVIDERS: PCP Internal Medicine; Visit Provider Internal Medicine Hematology & Oncology
DX: C7A.090 Malignant carcinoid tumor of the bronchus and lung (principal)
CPT/HCPCS: 36415; 80053; 85025

== ENCOUNTER 2020-04-10 11:42 | Outpatient (CLI) | payer MEDICARE, SELFPAY ==
[2020-04-10 12:10] VITALS: BP 100/62; PULSE 78; RESP 18; TEMP 36.4; O2SAT 98
[2020-04-10] MEDS: SODIUM CHLORIDE 0.9% IV 250 ML 40 ML IVPB (12:29)
[2020-04-10] MEDS: diphenhydrAMINE HCl INJ 50 MG/ML VIAL 25 MG IV PUSH (12:30)
[2020-04-10] MEDS: ACETAMINOPHEN 325 MG TABLET 650 MG PO (12:30)
[2020-04-10] MEDS: FAMOTIDINE 20 MG/ISO 50 ML 20 MG/50 ML BAG 100 MG IVPB (12:31)
[2020-04-10 14:18] VITALS: BP 112/63; PULSE 78; RESP 16; O2SAT 98
--- NOTE | 2020-04-10 14:19 | PC.NURSE ---
04/10/20 Patient here for chemo regimen. Labs from 04/09/20 reviewed and ok'd by Dr. Rodriguez to go ahead given. Chemo regimen administered. Tolerated well. No concerns voiced form patient. Will return in 2 weeks for next chemo. Safe exit of hospital.
== END 2020-04-10 11:43 | disposition home or self-care (01) ==
LOC: CHSTREATRM 11:44
PROVIDERS: PCP Internal Medicine; Visit Provider Internal Medicine Hematology & Oncology
DX: Z51.11 Encounter for antineoplastic chemotherapy (principal); C7A.8 Other malignant neuroendocrine tumors; C7A.090 Malignant carcinoid tumor of the bronchus and lung
CPT/HCPCS: 96367; 96375; 96413; A9270; J1200; J7050; J9173

== ENCOUNTER 2020-04-18 12:08 | Outpatient (CLI) | payer MEDICARE, SELFPAY ==
--- NOTE | ~2020-04-18 | XR_ITS ---
EXAMINATION: XR thoracic spine 3V EXAM DATE: 04/18/2020 12:39 INDICATION: Mid back pain. Low back pain. TECHNIQUE: Frontal and lateral projections of the thoracic spine as well as lateral swimmers projecti on of the upper thoracic spine for interpretation. There is no prior study for comparison. FINDINGS: There is mild to moderate mid and lower thoracic disc disease. Mild diffuse loss of thorac ic vertebral body heights. No acute fracture line identified. No endplate erosive change. Paraspinal soft tissue is unremarkable. Cardiac pacemaker leads. There is aortic arteriosclerosis. Probable smal l right pleural effusion. IMPRESSION: Mild/moderate thoracic spondylosis. Reviewed, dictated and finalized at location B. RETE BOOM PUMP OPERATOR
--- NOTE | ~2020-04-18 | XR_ITS ---
EXAMINATION: XR lumbar spine 2-3V EXAM DATE: 04/18/2020 12:40 INDICATION: Low back pain. TECHNIQUE: Lumber spine frontal, lateral, lateral L5-S1 projections for interpretation. Comparison is made to prior examination from 09/28/2015. FINDINGS: There is moderate to severe loss of the L3-4 disc height. Mild disc disease at the other l umbar levels. Overall moderate lumbar facet arthropathy. The vertebral bodies are aligned in the AP d imension. Extensive splenic artery arterial sclerosis and tortuosity. There are no acute fractures id entified. Sacrum, sacroiliac joints, sacral arcuate lines are intact. There are cholecystectomy clips . Difficult to appreciate any significant change compared to prior study. IMPRESSION: 1. L3-4 moderate to severe disc disease. 2. Moderate lumbar facet arthropathy. Reviewed, dictated and finalized at location B. SPREADER
== END 2020-04-18 12:09 | disposition home or self-care (01) ==
LOC: CHSIMG 12:10
PROVIDERS: PCP Internal Medicine; Visit Provider Internal Medicine
DX: M54.5 Low back pain (principal); M54.6 Pain in thoracic spine; Z85.118 Personal history of other malignant neoplasm of bronchus and lung
CPT/HCPCS: 72072; 72100

== ENCOUNTER 2020-04-23 08:36 | Outpatient (CLI) | payer MEDICARE, SELFPAY ==
[2020-04-23 09:01] LABS: Basophils Absolute Auto 0.03 K/mm3 (0.00-0.10); Basophils Percent Auto 0.6 % (0.0-1.0); Hematocrit 40.9 % (37.0-46.0); Hemoglobin 13.1 g/dL (12.4-15.3); Immature Granulocyte Absolute 0.01 K/mm3 (0.00-0.00); Immature Granulocyte Percent A 0.2 % (0.0-0.0); Lymphocytes Absolute Auto 0.38 K/mm3 (1.10-4.50); Lymphocytes Percent Auto 7.5 % (18.0-42.0); Mean Corpuscular Hemoglobin 27.2 pg (27.0-31.0); Mean Corpuscular Volume 84.9 fL (78.0-102.0); Mean Platelet Volume 10.6 fl (8.7-11.0); Monocytes Absolute Auto 0.39 K/mm3 (0.10-0.90); Monocytes Percent Auto 7.7 % (2.0-11.0); Neutrophils Absolute Auto 4.2 K/mm3 (1.7-7.2); Platelet Count Result 136 K/mm3 (150-420); Red Blood Count 4.82 M/mm3 (4.70-6.10); Red Cell Distribution Width 15.3 % (11.6-14.4); White Blood Count 5.1 K/mm3 (4.8-10.8)
[2020-04-23 10:18] LABS: Alanine Aminotransferase 17 U/L (16-63); Alkaline Phosphatase 66 U/L (46-116); Anion Gap 8 mmol/L (8-16); Aspartate Amino Transferase 15 U/L (15-37); Bilirubin,Total 0.7 mg/dL (0.00-1.00); Blood Urea Nitrogen 17 mg/dL (7-18); Calcium 8.9 mg/dL (8.5-10.1); Carbon Dioxide 29 mmol/L (21-32); Chloride 100 mmol/L (98-108); Estimated Glomerular Filt Rate 40; Glucose 224 mg/dL (70-99); Osmolality Calculated 292 mOsm/kg (285-295); Potassium 4.5 mmol/L (3.5-5.1); Sodium 137 mmol/L (136-145); Total Protein 7.4 g/dL (6.4-8.2)
[2020-04-23 10:21] LABS: Thyroid Stimulating Hormone Reflex 1.33 u/IU/mL (0.36-3.74)
[2020-04-27 08:20] LABS: Cortisol Random 16.8 mcg/dL (***)
== END 2020-04-23 08:37 | disposition home or self-care (01) ==
LOC: CHSLAB 08:40
PROVIDERS: PCP Internal Medicine; Visit Provider Internal Medicine Hematology & Oncology
DX: C7A.8 Other malignant neuroendocrine tumors (principal); E03.9 Hypothyroidism, unspecified
CPT/HCPCS: 36415; 80053; 82533; 84443; 85025

== ENCOUNTER 2020-04-24 11:28 | Outpatient (CLI) | payer MEDICARE, SELFPAY ==
[2020-04-24] MEDS: ACETAMINOPHEN 325 MG TABLET 650 MG PO (11:55)
[2020-04-24] MEDS: SODIUM CHLORIDE 0.9% IV 250 ML 10 ML IVPB (12:00)
[2020-04-24] MEDS: diphenhydrAMINE HCl INJ 50 MG/ML VIAL 25 MG IV PUSH (12:07)
[2020-04-24] MEDS: FAMOTIDINE 20 MG/ISO 50 ML 20 MG/50 ML BAG 100 MG IVPB (12:08)
[2020-04-24 12:21] VITALS: BP 118/61; PULSE 78; RESP 14; TEMP 36.3; O2SAT 96
[2020-04-24 13:40] VITALS: BP 118/69; PULSE 78; RESP 16; O2SAT 96
--- NOTE | 2020-04-24 13:55 | PC.NURSE ---
Patient here for biweekly chemo. Labs reviewed and ok'd. No concerns voiced. Chemo regimen administered. Tolerated well. Suppose to return May 08 for next chemo, but patient states, I think I'm going just stop because I don't want to pay for it anymore. Let patient vent. Will call week before to see if he changes his mind. Safe exit of hospital.
== END 2020-04-24 11:29 | disposition home or self-care (01) ==
LOC: CHSTREATRM 11:29
PROVIDERS: PCP Internal Medicine; Visit Provider Internal Medicine Hematology & Oncology
DX: Z51.11 Encounter for antineoplastic chemotherapy (principal); C7A.8 Other malignant neuroendocrine tumors
CPT/HCPCS: 96367; 96375; 96413; A9270; J1200; J7050; J9173

== ENCOUNTER 2020-05-23 10:36 | Outpatient (CLI) | payer MEDICARE, SELFPAY ==
--- NOTE | ~2020-05-23 | XR_ITS ---
XR chest 2V DATE: 05/23/2020 11:06 INDICATION: Fever and weight loss for 2 months. Dysphagia. TECHNIQUE: 2 views COMPARISON: 03/17/2020 CT chest abdomen pelvis 02/12/2022 view chest FINDINGS: Moderate increased right pleural effusion and right basilar infiltrate/atelectasis. There is interval infiltrate in the medial left upper lung since 03/17/2020; consider left upper lobe pneumonia, post- radiation change (if clinically applicable). Heart size appears within normal limits. Aortic arch calcification. Left-sided triple lead pacemaker device. . IMPRESSION: Medial left upper lobe infiltrate Increased right pleural effusion Right basilar infiltrate and/atelectasis Reviewed, dictated and finalized at location B. CARE RN
[2020-05-23 10:51] LABS: Basophils Absolute Auto 0.05 K/mm3 (0.00-0.10); Basophils Percent Auto 0.9 % (0.0-1.0); Eosinophils Absolute Auto 0.16 K/mm3 (0.02-0.50); Eosinophils Percent Auto 2.9 % (1.0-6.0); Hemoglobin 12.2 g/dL (12.4-15.3); Immature Granulocyte Absolute 0.02 K/mm3 (0.00-0.00); Immature Granulocyte Percent A 0.4 % (0.0-0.0); Lymphocytes Absolute Auto 0.48 K/mm3 (1.10-4.50); Lymphocytes Percent Auto 8.6 % (18.0-42.0); Mean Corpuscular HGB Conc 32.1 g/dL (32.0-36.0); Mean Corpuscular Hemoglobin 26.4 pg (27.0-31.0); Mean Corpuscular Volume 82.3 fL (78.0-102.0); Mean Platelet Volume 9.7 fl (8.7-11.0); Monocytes Absolute Auto 0.56 K/mm3 (0.10-0.90); Monocytes Percent Auto 10.1 % (2.0-11.0); Neutrophils Absolute Auto 4.3 K/mm3 (1.7-7.2); Neutrophils Percent Auto 77.1 % (50.0-70.0); Platelet Count Result 239 K/mm3 (150-420); Red Blood Count 4.62 M/mm3 (4.70-6.10); Red Cell Distribution Width 15.1 % (11.6-14.4); White Blood Count 5.6 K/mm3 (4.8-10.8)
[2020-05-23 10:57] LABS: Add Urine Microscopic? YES; Appearance Urine Clear (Clear); Bilirubin Urine Negative (Negative); Blood Urine Negative (Negative); Color Urine Yellow (Yellow); Glucose Urine UA Negative (Negative); Ketones Urine Negative (Negative); Leukocyte Esterase Ur Negative (Negative); Nitrate Urine Negative (Negative); Protein Urine Trace (Negative); Urobilinogen Urine 0.2 mg/dL (0.2-1.0); pH Urine 6.5 (5.0-8.0)
[2020-05-23 11:00] LABS: RBC Urine None seen /hpf (0-2); Squamous Epithelial Cell Urine Rare /hpf (Few); WBC Urine None seen /hpf (0-3)
[2020-05-23 11:01] LABS: Bacteria Urine Trace /hpf; Mucus Urine Few /lpf
[2020-05-23 11:09] LABS: Alanine Aminotransferase 15 U/L (16-63); Albumin Level 3.3 g/dL (3.4-5.0); Alkaline Phosphatase 110 U/L (46-116); Anion Gap 7 mmol/L (8-16); Aspartate Amino Transferase 16 U/L (15-37); Bilirubin,Total 0.5 mg/dL (0.00-1.00); Blood Urea Nitrogen 29 mg/dL (7-18); Calcium 9.5 mg/dL (8.5-10.1); Carbon Dioxide 28 mmol/L (21-32); Chloride 100 mmol/L (98-108); Estimated Glomerular Filt Rate 39; Glucose 135 mg/dL (70-99); Osmolality Calculated 287 mOsm/kg (285-295); Sodium 135 mmol/L (136-145); Total Protein 7.6 g/dL (6.4-8.2)
== END 2020-05-23 10:37 | disposition home or self-care (01) ==
LOC: CHSLAB 10:39
PROVIDERS: PCP Internal Medicine; Visit Provider Internal Medicine
DX: R50.9 Fever, unspecified (principal); R63.0 Anorexia; R13.10 Dysphagia, unspecified
CPT/HCPCS: 36415; 71046; 80053; 81001; 85025; 87086

== ENCOUNTER 2020-05-27 08:14 | Outpatient (CLI) | payer MEDICARE, SELFPAY ==
--- NOTE | ~2020-05-27 | XR_ITS ---
EXAMINATION: XR barium swallow EXAM DATE: 05/27/2020 08:52 INDICATION: Dysphagia, thickening esophagus seen on recent CT, wt loss. TECHNIQUE: Limited thick followed by thick contrast barium esophagram examination was performed accor ding to patient abilities. The DAP for this procedure was 4.1 Gycm2. Correlation is made to CT chest abdomen pelvis 03/17/2020. FINDINGS: The pharynx is symmetric and without evidence of mass lesion. There is no esophageal stric ture or mass identified, no finding to suggest malignancy. CT finding was probably esophagitis. There are no esophageal diverticula. Gastroesophageal junction is normal in appearance. IMPRESSION: Unremarkable esophagram. Reviewed, dictated and finalized at location B. OR UI UX DESIGNER IMPRESSION: Unremarkable esophagram.
== END 2020-05-27 08:15 | disposition home or self-care (01) ==
LOC: CHSIMG 08:15
PROVIDERS: PCP Internal Medicine; Visit Provider Internal Medicine
DX: R13.10 Dysphagia, unspecified (principal); R63.0 Anorexia; R50.9 Fever, unspecified; K22.8 Other specified diseases of esophagus
CPT/HCPCS: 74220

== ENCOUNTER 2020-06-09 11:26 | Outpatient (CLI) | payer MEDICARE, SELFPAY ==
--- NOTE | ~2020-06-09 | XR_ITS ---
EXAMINATION: XR chest min 4V INDICATION: Shortness of breath TECHNIQUE: PA and lateral and bilateral decubitus views of the chest are obtained. COMPARISON: 05/23/2020 FINDINGS: There is a moderate size right pleural effusion with increase in size since the comparison examination. Airspace opacities are present in the right mid and lower lung zones. There is no pneumo thorax. The heart size is normal. A triple lead cardiac pacemaker of the left chest wall ends with le ads in expected locations. A suture anchor is noted in the right humeral head. There is moderate thor acic spondylosis. IMPRESSION: 1. Moderate-sized right pleural effusion. 2. Airspace opacities of the right mid and lower lung zones, likely passive atelectasis. Reviewed, dictated and finalized at location A. O DIRECTOR IMPRESSION: 1. Moderate-sized right pleural effusion. 2. Airspace opacities of the right mid and lower lung zones, likely passive ate lectasis.
== END 2020-06-09 11:27 | disposition home or self-care (01) ==
PROVIDERS: PCP Internal Medicine; Visit Provider Internal Medicine Hematology & Oncology
DX: R06.02 Shortness of breath (principal)
CPT/HCPCS: 71048

== ENCOUNTER 2020-06-13 07:27 | Outpatient (CLI) | payer MEDICARE, SELFPAY ==
--- NOTE | ~2020-06-13 | CT_ITS ---
EXAMINATION: CT soft tiss nk chst ab pel wo EXAM DATE: 06/13/2020 07:54 INDICATION: Neuroendocrine carcinoma follow-up. Shortness of breath. Loss of appetite and weight. Cou gh. Thoracentesis done on 06/10/2020. TECHNIQUE: Spiral CT of the neck, chest, abdomen and pelvis was performed without contrast. Axial, c oronal and sagittal images of the neck were reviewed. Axial, coronal and sagittal images of the ches t were reviewed. Coronal maximum intensity pixel images of chest reviewed. Axial, coronal and sagit ranjan images of the abdomen and pelvis were reviewed. The dose-length product (DLP) for this examinati on was 1580.31 mGy-cm. The exposure was tailored according to patient size (auto mA exposure control ), and iterative reconstruction (ASIR) was used as additional dose reduction technique. Comparison is made to prior examination from 03/27/2020. FINDINGS: NECK: Thyroid likely atrophic, is not specifically well visualized and there are no surgical clips to suggest thyroidectomy. The submandibular and parotid glands are symmetric. There is no cervical l ymphadenopathy. There are no masses identified. The airway is unremarkable. Parapharyngeal and pre-glottic fat planes are preserved. Limited evaluation of cervical vessels on this noncontrast st udy. The orbits are unremarkable. There is moderate-sized left maxillary sinus polyp or retention cyst. Mild mucoperiosteal thickening in the sinus. No air-fluid levels. There is cervical spondylosi s. CHEST: Interval development of extensive right hilar, perihilar soft tissue density and smaller amou nt on the left, appearance most consistent with lymphangitic carcinomatosis. Cannot pick out any disc rete hilar lymph nodes from this. Interval development of narrowing of the bronchus intermedius, whic h could be from encasement or invasion of this bronchus. Infiltration extends into the hilum, mediast inum, and along the midportion of esophagus at least partially surrounds it. There is a moderate to l arge right pleural effusion. Tracheobronchial tree is patent. There is no pneumothorax. There is small pericardial effusion. Pacemaker/AICD device. ABDOMEN PELVIS: Again there is portal splenic venous dilation, and mild to moderate splenomegaly at 1 6 cm. This may indicate cirrhosis. Adrenal glands are unremarkable. There are cholecystectomy clips. Pancreas unremarkable. There is no nephrolithiasis or hydronephrosis. Bilateral renal cysts, larges t on the left at 10 cm, displacing the kidney anteriorly. There is mild prostatomegaly. The bladder is unremarkable. There is no retroperitoneal or pelvic lymphadenopathy. There is moderate scattere d arteriosclerotic disease. The appendix is normal. The stomach and small bowel are unremarkable. There is expected amount of c olonic stool. No free intraperitoneal gas. There are no osteoblastic or osteolytic lesions identi fied. IMPRESSION: 1. 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 2. Moderate to large right pleural effusion. Small pericardial effusion. 3. Splenomegaly, portal hypertension. Probable cirrhosis. Reviewed, dictated and finalized at location D. ACT LENS BLOCKER IMPRESSION: 1. 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 2. Moderate to large right pleural effusion. Small pericardial effusion. 3. Splenomegaly, portal hypertension. Probable cirrhosis.
== END 2020-06-13 07:28 | disposition home or self-care (01) ==
LOC: CHSIMG 07:28
PROVIDERS: PCP Internal Medicine; Visit Provider Internal Medicine Hematology & Oncology
DX: C7A.8 Other malignant neuroendocrine tumors (principal)
CPT/HCPCS: 70490; 71250; 74176

== ENCOUNTER 2020-06-20 09:58 | Outpatient (CLI) | payer MEDICARE, SELFPAY ==
[2020-06-20 10:21] LABS: Basophils Absolute Auto 0.03 K/mm3 (0.00-0.10); Basophils Percent Auto 0.6 % (0.0-1.0); Eosinophils Absolute Auto 0.15 K/mm3 (0.02-0.50); Eosinophils Percent Auto 3.2 % (1.0-6.0); Hemoglobin 10.6 g/dL (12.4-15.3); Immature Granulocyte Absolute 0.03 K/mm3 (0.00-0.00); Immature Granulocyte Percent A 0.6 % (0.0-0.0); Lymphocytes Absolute Auto 0.35 K/mm3 (1.10-4.50); Lymphocytes Percent Auto 7.4 % (18.0-42.0); Mean Corpuscular HGB Conc 31.2 g/dL (32.0-36.0); Mean Corpuscular Hemoglobin 26.4 pg (27.0-31.0); Mean Corpuscular Volume 84.8 fL (78.0-102.0); Mean Platelet Volume 9.7 fl (8.7-11.0); Monocytes Absolute Auto 0.46 K/mm3 (0.10-0.90); Monocytes Percent Auto 9.7 % (2.0-11.0); Neutrophils Absolute Auto 3.7 K/mm3 (1.7-7.2); Neutrophils Percent Auto 78.5 % (50.0-70.0); Platelet Count Result 176 K/mm3 (150-420); Red Blood Count 4.01 M/mm3 (4.70-6.10); Red Cell Distribution Width 16.6 % (11.6-14.4); White Blood Count 4.7 K/mm3 (4.8-10.8)
[2020-06-20 10:44] LABS: Alanine Aminotransferase 16 U/L (16-63); Albumin Level 3.1 g/dL (3.4-5.0); Alkaline Phosphatase 86 U/L (46-116); Anion Gap 8 mmol/L (8-16); Aspartate Amino Transferase 14 U/L (15-37); Bilirubin,Total 0.5 mg/dL (0.00-1.00); Blood Urea Nitrogen 25 mg/dL (7-18); Calcium 8.7 mg/dL (8.5-10.1); Carbon Dioxide 27 mmol/L (21-32); Chloride 101 mmol/L (98-108); Estimated Glomerular Filt Rate 43; Glucose 125 mg/dL (70-99); Osmolality Calculated 287 mOsm/kg (285-295); Sodium 136 mmol/L (136-145); Thyroid Stimulating Hormone 2.57 uIU/mL (0.36-3.74); Total Protein 6.9 g/dL (6.4-8.2)
[2020-06-24 12:27] LABS: Cortisol Random 14.4 mcg/dL (***)
== END 2020-06-20 09:59 | disposition home or self-care (01) ==
LOC: CHSLAB 10:03
PROVIDERS: PCP Internal Medicine; Visit Provider Internal Medicine Hematology & Oncology
DX: C7A.8 Other malignant neuroendocrine tumors (principal); E03.9 Hypothyroidism, unspecified
CPT/HCPCS: 36415; 80053; 82533; 84443; 85025

== ENCOUNTER 2020-07-09 08:24 | Outpatient (CLI) | payer MEDICARE, SELFPAY | END 2020-07-09 08:25 | disposition home or self-care (01) | PROVIDERS: PCP Internal Medicine; Visit Provider Internal Medicine Hematology & Oncology | DX: Z53.8 Procedure and treatment not carried out for other reasons (principal) | CPT/HCPCS: 99199 ==

== ENCOUNTER 2020-07-16 09:57 | Outpatient (CLI) | payer MEDICARE, SELFPAY ==
--- NOTE | ~2020-07-16 | CT_ITS ---
EXAMINATION: CT brain wo con DATE: 07/16/2020 10:25 INDICATION: Neuroendocrine carcinoma. TECHNIQUE: Computed tomography (CT) of the head was performed without intravenous contrast. The mA wa s adjusted according to patient size. Iterative reconstruction technique was employed. The dose-lengt h product was 605.33 mGy-cm. COMPARISON: Head CT 04/17/2019 FINDINGS: There are scattered areas of low attenuation in the cerebral white matter. There is no intr acranial hemorrhage, acute infarction, or abnormal intracranial mass lesion. The ventricles are malcolm l in size. There are likely changes of ocular lens replacement surgeries. There is mild mucosal thick ening in the paranasal sinuses. There is a trace left mastoid effusion. IMPRESSION: 1. Stable mild nonspecific cerebral white matter disease, which likely represents chronic small vesse l ischemic disease. Reviewed, dictated and finalized at location A. IMPRESSION: 1. Stable mild nonspecific cerebral white matter disease, which likely represen ts chronic small vessel ischemic disease.
== END 2020-07-16 09:58 | disposition home or self-care (01) ==
LOC: CHSIMG 09:59
PROVIDERS: PCP Internal Medicine; Visit Provider Internal Medicine Hematology & Oncology
DX: C7A.8 Other malignant neuroendocrine tumors (principal)
CPT/HCPCS: 70450

== ENCOUNTER 2020-08-21 08:57 | Outpatient (CLI) | payer MEDICARE, SELFPAY ==
[2020-08-21 09:24] LABS: Basophils Absolute Auto 0.04 K/mm3 (0.00-0.10); Eosinophils Absolute Auto 0.19 K/mm3 (0.02-0.50); Eosinophils Percent Auto 4.7 % (1.0-6.0); Hematocrit 36.5 % (37.0-46.0); Hemoglobin 11.6 g/dL (12.4-15.3); Immature Granulocyte Absolute 0.01 K/mm3 (0.00-0.00); Immature Granulocyte Percent A 0.2 % (0.0-0.0); Lymphocytes Absolute Auto 0.44 K/mm3 (1.10-4.50); Mean Corpuscular HGB Conc 31.8 g/dL (32.0-36.0); Mean Corpuscular Hemoglobin 25.2 pg (27.0-31.0); Mean Corpuscular Volume 79.2 fL (78.0-102.0); Mean Platelet Volume 9.7 fl (8.7-11.0); Monocytes Absolute Auto 0.47 K/mm3 (0.10-0.90); Monocytes Percent Auto 11.7 % (2.0-11.0); Neutrophils Absolute Auto 2.9 K/mm3 (1.7-7.2); Neutrophils Percent Auto 71.4 % (50.0-70.0); Platelet Count Result 168 K/mm3 (150-420); Red Blood Count 4.61 M/mm3 (4.70-6.10); Red Cell Distribution Width 14.6 % (11.6-14.4)
[2020-08-21 09:26] LABS: Add Urine Microscopic? YES; Appearance Urine Clear (Clear); Bilirubin Urine Negative (Negative); Blood Urine Negative (Negative); Color Urine Yellow (Yellow); Glucose Urine UA Trace (Negative); Ketones Urine Negative (Negative); Leukocyte Esterase Ur Negative (Negative); Nitrate Urine Negative (Negative); Protein Urine Negative (Negative); Specific Grav Ur 1.015 (1.010-1.020); Urobilinogen Urine 0.2 mg/dL (0.2-1.0); pH Urine 6.5 (5.0-8.0)
[2020-08-21 09:30] LABS: Bacteria Urine None seen /hpf; RBC Urine None seen /hpf (0-2); Squamous Epithelial Cell Urine Few /hpf (Few); WBC Urine None seen /hpf (0-3)
[2020-08-21 09:40] LABS: Hemoglobin A1C 7.6 % (<5.7)
[2020-08-21 09:50] LABS: MALB Creatinine Ratio 95.5 mg/g (0-30); Microalbumin Urine Random 49.6 mg/L
[2020-08-21 10:47] LABS: Alanine Aminotransferase 19 U/L (16-63); Albumin Level 3.3 g/dL (3.4-5.0); Alkaline Phosphatase 67 U/L (46-116); Anion Gap 6 mmol/L (8-16); Aspartate Amino Transferase 19 U/L (15-37); Bilirubin,Total 0.4 mg/dL (0.00-1.00); Blood Urea Nitrogen 18 mg/dL (7-18); Calcium 8.3 mg/dL (8.5-10.1); Carbon Dioxide 29 mmol/L (21-32); Chloride 100 mmol/L (98-108); Cholesterol 124 mg/dL (0-200); Estimated Glomerular Filt Rate 34; Ferritin 54 ng/mL (26-388); Free T3 1.64 pg/mL (2.18-3.98); Free T4 Free Thyroxine 1.18 ng/dL (0.76-1.46); Glucose 216 mg/dL (70-99); HDL Direct 36 mg/dL (40-60); Iron 30 ug/dL (65-175); LDL Cholesterol Calculated 75 mg/dL (<130); NT Pro B Type Natriuretic Pept 6061 pg/mL (0-450); Osmolality Calculated 288 mOsm/kg (285-295); Percent Iron Saturation 10 % (12-57); Potassium 4.8 mmol/L (3.5-5.1); Sodium 135 mmol/L (136-145); Thyroid Stimulating Hormone 7.92 uIU/mL (0.36-3.74); Total Protein 6.4 g/dL (6.4-8.2); Triglycerides 63 mg/dL (0-150); Uric Acid 7.1 mg/dL (3.5-7.2); Vitamin B12 576 pg/mL (193-986)
[2020-08-21 17:27] LABS: Phosphorus 3.3 mg/dL (2.6-4.7)
[2020-08-24 16:25] LABS: Vitamin D 25 Hydroxy 25 ng/mL (30-100)
[2020-08-25 14:43] LABS: Testosterone Free 219.6 pg/mL (30.0-135.0); Testosterone Total 1399 ng/dL (250-1100)
== END 2020-08-21 08:58 | disposition home or self-care (01) ==
LOC: CHSLAB 09:02
PROVIDERS: PCP Internal Medicine; Visit Provider Internal Medicine
DX: E79.0 Hyperuricemia without signs of inflammatory arthritis and tophaceous disease (principal); E11.21 Type 2 diabetes mellitus with diabetic nephropathy; N18.30 Chronic kidney disease, stage 3 unspecified; E55.9 Vitamin D deficiency, unspecified; D50.9 Iron deficiency anemia, unspecified; I50.1 Left ventricular failure, unspecified; E78.2 Mixed hyperlipidemia
CPT/HCPCS: 36415; 80053; 80061; 81001; 82043; 82306; 82607; 82728; 83036; 83540; 83550; 83880; 84100; 84402; 84403; 84439; 84443; 84481; 84550; 85025

== ENCOUNTER 2020-09-05 08:38 | Outpatient (CLI) | payer MEDICARE, SELFPAY ==
[2020-09-05 08:55] LABS: Basophils Absolute Auto 0.07 K/mm3 (0.00-0.10); Basophils Percent Auto 1.4 % (0.0-1.0); Eosinophils Absolute Auto 0.26 K/mm3 (0.02-0.50); Eosinophils Percent Auto 5.3 % (1.0-6.0); Hematocrit 38.3 % (37.0-46.0); Immature Granulocyte Absolute 0.01 K/mm3 (0.00-0.00); Immature Granulocyte Percent A 0.2 % (0.0-0.0); Lymphocytes Absolute Auto 0.94 K/mm3 (1.10-4.50); Lymphocytes Percent Auto 19.1 % (18.0-42.0); Mean Corpuscular HGB Conc 31.3 g/dL (32.0-36.0); Mean Corpuscular Hemoglobin 25.5 pg (27.0-31.0); Mean Corpuscular Volume 81.3 fL (78.0-102.0); Mean Platelet Volume 9.7 fl (8.7-11.0); Monocytes Absolute Auto 0.68 K/mm3 (0.10-0.90); Monocytes Percent Auto 13.8 % (2.0-11.0); Neutrophils Percent Auto 60.2 % (50.0-70.0); Platelet Count Result 172 K/mm3 (150-420); Red Blood Count 4.71 M/mm3 (4.70-6.10); Red Cell Distribution Width 16.8 % (11.6-14.4); White Blood Count 4.9 K/mm3 (4.8-10.8)
[2020-09-05 09:54] LABS: Alanine Aminotransferase 16 U/L (16-63); Albumin Level 3.2 g/dL (3.4-5.0); Alkaline Phosphatase 63 U/L (46-116); Anion Gap 7 mmol/L (8-16); Aspartate Amino Transferase 14 U/L (15-37); Bilirubin,Total 0.8 mg/dL (0.00-1.00); Blood Urea Nitrogen 18 mg/dL (7-18); Calcium 8.5 mg/dL (8.5-10.1); Carbon Dioxide 30 mmol/L (21-32); Chloride 99 mmol/L (98-108); Estimated Glomerular Filt Rate 33; Glucose 234 mg/dL (70-99); Osmolality Calculated 291 mOsm/kg (285-295); Potassium 5.4 mmol/L (3.5-5.1); Sodium 136 mmol/L (136-145); Total Protein 6.2 g/dL (6.4-8.2)
== END 2020-09-05 08:39 | disposition home or self-care (01) ==
LOC: CHSLAB 08:41
PROVIDERS: PCP Internal Medicine; Visit Provider Internal Medicine Hematology & Oncology
DX: C7A.8 Other malignant neuroendocrine tumors (principal)
CPT/HCPCS: 36415; 80053; 85025

== ENCOUNTER 2020-10-01 09:19 | Outpatient (CLI) | payer MEDICARE, SELFPAY ==
--- NOTE | ~2020-10-01 | CT_ITS ---
EXAMINATION: CT chest abdomen pelvis wo con DATE: 10/01/2020 09:56 INDICATION: Malignant neuroendocrine tumors TECHNIQUE: Transaxial computed tomographic images of the chest, abdomen, and pelvis were obtained wit hout intravenous contrast. The dose-length product (DLP) was 834.71 mGy-cm. Automated exposure contro l and iterative reconstruction technique were employed. COMPARISON: 06/13/2020 FINDINGS: CHEST CT: There is a stable moderate to large right pleural effusion. There is a small right pleural effusion. Bilateral perihilar reticular and airspace opacities persist with interval improvement. There is pers istent masslike opacity of the right hilum with encasement and stricture of the bronchus intermedius. The right middle lobe bronchus is obstructed with persistent collapse of the middle lobe. No discret e thoracic lymphadenopathy is identified however right hilar and subcarinal lymph nodes are confluent with perihilar masslike opacity. Cardiomegaly is noted. There is a small pericardial effusion. There are calcified bilateral hilar spinal lymph nodes. There is severe thoracic spondylosis. ABDOMEN/PELVIS CT: The liver, spleen, pancreas, and adrenal glands are normal. The gallbladder is surgically absent. The re are multiple cysts of the kidneys. The largest measures 10.2 cm on the left. There is calcified at herosclerosis of the aorta and many of the other arteries. No pathologically enlarged abdominal or pe lvic lymph nodes are identified. There is no free intraperitoneal gas or evidence of bowel obstructio n. The appendix is normal. There is severe lumbar spondylosis at L3-4. IMPRESSION: 1. Bilateral perihilar reticular and airspace opacities with interval improvement. Persistent right p erihilar masslike opacity confluent with right hilar and subcarinal lymph nodes and causing stricture of bronchus intermedius and occlusion of the right middle lobe bronchus with resulting right middle lobe collapse. 2. Stable moderate to large right pleural effusion. Reviewed, dictated and finalized at location B. IMPRESSION: 1. Bilateral perihilar reticular and airspace opacities with interval improveme nt. Persistent right perihilar masslike opacity confluent with right hilar and subcarinal lymph nodes and causing stricture of bronchus intermedius and occlus ion of the right middle lobe bronchus with resulting right middle lobe collapse . 2. Stable moderate to large right pleural effusion.
[2020-10-01 09:34] LABS: Basophils Absolute Auto 0.05 K/mm3 (0.00-0.10); Basophils Percent Auto 1.1 % (0.0-1.0); Eosinophils Absolute Auto 0.27 K/mm3 (0.02-0.50); Eosinophils Percent Auto 5.8 % (1.0-6.0); Hematocrit 39.7 % (37.0-46.0); Hemoglobin 12.9 g/dL (12.4-15.3); Immature Granulocyte Absolute 0.02 K/mm3 (0.00-0.00); Immature Granulocyte Percent A 0.4 % (0.0-0.0); Lymphocytes Absolute Auto 0.64 K/mm3 (1.10-4.50); Lymphocytes Percent Auto 13.8 % (18.0-42.0); Mean Corpuscular HGB Conc 32.5 g/dL (32.0-36.0); Mean Corpuscular Hemoglobin 26.9 pg (27.0-31.0); Mean Corpuscular Volume 82.7 fL (78.0-102.0); Mean Platelet Volume 9.8 fl (8.7-11.0); Monocytes Absolute Auto 0.39 K/mm3 (0.10-0.90); Monocytes Percent Auto 8.4 % (2.0-11.0); Neutrophils Absolute Auto 3.3 K/mm3 (1.7-7.2); Neutrophils Percent Auto 70.5 % (50.0-70.0); Platelet Count Result 142 K/mm3 (150-420); Red Cell Distribution Width 17.4 % (11.6-14.4); White Blood Count 4.7 K/mm3 (4.8-10.8)
[2020-10-01 10:33] LABS: Alanine Aminotransferase 19 U/L (16-63); Albumin Level 3.3 g/dL (3.4-5.0); Alkaline Phosphatase 71 U/L (46-116); Anion Gap 6 mmol/L (8-16); Aspartate Amino Transferase 17 U/L (15-37); Bilirubin,Total 0.6 mg/dL (0.00-1.00); Blood Urea Nitrogen 22 mg/dL (7-18); Calcium 8.4 mg/dL (8.5-10.1); Carbon Dioxide 29 mmol/L (21-32); Chloride 100 mmol/L (98-108); Estimated Glomerular Filt Rate 34; Glucose 305 mg/dL (70-99); Osmolality Calculated 294 mOsm/kg (285-295); Potassium 5.5 mmol/L (3.5-5.1); Sodium 135 mmol/L (136-145); Thyroid Stimulating Hormone 7.65 uIU/mL (0.36-3.74); Total Protein 6.3 g/dL (6.4-8.2)
== END 2020-10-01 09:20 | disposition home or self-care (01) ==
LOC: CHSIMG 09:20
PROVIDERS: PCP Internal Medicine; Visit Provider Internal Medicine Hematology & Oncology
DX: C7A.8 Other malignant neuroendocrine tumors (principal); E03.9 Hypothyroidism, unspecified; E11.21 Type 2 diabetes mellitus with diabetic nephropathy
CPT/HCPCS: 36415; 71250; 74176; 80053; 84443; 85025

== ENCOUNTER 2020-11-15 10:51 | Emergency (ER) | payer MEDICARE, SELFPAY ==
[2020-11-15] VITALS (38 sets, daily range): BP systolic 85–123; BP diastolic 40–76; PULSE 60–77; RESP 14–25; TEMP 36.4–36.8; O2SAT 98–100
--- NOTE | ~2020-11-15 | XR_ITS ---
EXAMINATION: XR chest 2V DATE: 11/15/2020 12:06 INDICATION: Weakness TECHNIQUE: AP and lateral views of the chest are obtained. COMPARISON: 06/09/2020 FINDINGS: Cardiomegaly is noted. There is a small right pleural effusion. Airspace opacities are pres ent in the right lung base. There is no pneumothorax. A triple lead cardiac pacemaker of the left jim st wall ends with leads in expected locations. Moderate thoracic suture anchor is noted in the right humeral head. IMPRESSION: 1. Small right pleural effusion. 2. Minimal right basilar airspace opacity, consistent with atelectasis versus pneumonia. 3. Cardiomegaly. Reviewed, dictated and finalized at location A. IMPRESSION: 1. Small right pleural effusion. 2. Minimal right basilar airspace opacity, consistent with atelectasis versus p neumonia. 3. Cardiomegaly.
--- NOTE | ~2020-11-15 | CT_ITS ---
EXAMINATION: CT brain wo con INDICATION: Transient alteration of awareness COMPARISON: 07/16/2020 TECHNIQUE: Standard unenhanced head CT. The dose-length product (DLP) was 605.33 mGy-cm. The mA was a djusted according to patient size. Iterative reconstruction technique was employed. FINDINGS: There is no acute intraparenchymal hemorrhage. No evidence of mass lesion. No evidence of a cute infarction. There is mild periventricular and subcortical hypodensity probably related to small vessel ischemic disease. There is mild prominence of the sulci and ventricles related to cerebral atr ophy. Intracranial calcified cerebral atherosclerosis is noted. There are no extra-axial collections. There is no mass effect or midline shift. Changes in the globes are likely from ocular lens surgery. There is mild mucosal thickening of the paranasal sinuses. IMPRESSION: 1. No acute intracranial abnormality. 2. Age related findings. Reviewed, dictated and finalized at location A.
--- NOTE | 2020-11-15 10:54 | ED.WEAKNESS ---
HPI - Weakness General Chief complaint: Weakness Stated complaint: ambulance Time Seen by Provider: 11/15/20 10:54 Source: patient Mode of arrival: EMS Limitations: no limitations History of Present Illness HPI Narrative: 80-year-old man with a history of diabetes, congestive heart failure, and defibrillator, brought to the emergency department for 2 weeks of progressively worsening weakness. Patient states that on the 03 of November his defibrillator went off several times while he was sleeping. His doctor called him and he had an outpatient echocardiogram. He denies abdominal pain, diarrhea, nausea, vomiting, chest pain, shortness breath, cold symptoms, dysuria, hematuria, and headache. He fell 2 days ago injuring his left forearm. MD Complaint: generalized weakness Onset (ago): week(s) (2) Duration: constant Location: generalized Migration: none Severity: moderate Relieving factors: none Exacerbating factors: none Context: trauma/injury Associated symptoms: denies other symptoms Related Data Home Medications Medication Instructions Recorded Confirmed apixaban 5 mg tablet 5 mg PO BID 02/15/19 11/15/20 carvedilol 12.5 mg tablet 12.5 mg PO Q12H 02/15/19 11/15/20 furosemide 40 mg tablet 40 mg PO QAM 02/15/19 11/15/20 levothyroxine 175 mcg tablet 175 mcg PO DAILY 02/15/19 11/15/20 pravastatin 40 mg tablet 40 mg PO DAILY 02/15/19 11/15/20 Humalog U-100 Insulin 10 unit SUBCUT TID 02/20/19 11/15/20 Lantus U-100 Insulin 50 unit SUBCUT HS 02/20/19 11/15/20 Allergies Allergy/AdvReac Type Severity Reaction Status Date / Time iohexol Allergy Intermediate PETECHAIE Verified 03/09/19 10:03 [From CONTRAST - CT, XRAY] Sulfa (Sulfonamide Allergy Unknown Hives Verified 03/09/19 10:03 Antibiotics) iv antibiotics unknown Allergy Intermediate Rash Uncoded 03/09/19 10:03 Review of Systems Constitutional: Constitutional: Reports as per HPI, Denies chills, Denies fever(s) and Reports weakness Eyes: Eyes: Denies change in vision and Denies photophobia ENT: Denies nasal congestion and Denies sore throat Cardiovascular: Cardiovascular: Denies chest pain and Denies radiating jaw, neck or arm pain Respiratory: Respiratory: Denies cough, Denies dyspnea and Denies wheezing Gastrointestinal: Gastrointestinal: Denies abdominal pain, Denies diarrhea, Denies nausea and Denies vomiting Genitourinary: Genitourinary: Denies hematuria, Denies dysuria and Denies urinary frequency Musculoskeletal: Musculoskeletal: Denies back pain, Denies arthralgias and Denies joint swelling Integumentary/Breasts: Skin/Breast: Denies pruritus, Denies erythema and Denies rash Neurologic: Denies vertigo, Denies dizziness and Denies syncope Endocrine: Endocrine: Denies polydipsia and Denies polyuria Hematologic/Lymphatic: Hematologic/Lymphatic: Denies easy bleeding and Denies easy bruising Allergic/Immunologic: Allergic/Immunologic: Denies lip swelling and Denies throat swelling [facility] Past Medical History Medical History (Updated 11/15/20 @ 18:47 by Joe Freeman MD) A-fib Diabetes Heart attack History of thyroid cancer Hypertension Kidney stone Pacemaker Thyroid disease Surgical History Surgical History H/O inguinal hernia repair H/O thyroidectomy History of back surgery Hx of BKA S/P bilateral foot surgery Family History Family History Father Heart failure Mother Cerebrovascular accident Sibling Kidney failure Social History Social History Smoking packs per day: 1 Smoking cigarettes per day: 20.0 Years smoked: 50 Smoking pack-years: 50.00 Smoking status: Former smoker Tobacco type: cigarettes Alcohol intake: never Substance use: never Gender identity (if verbalized by the patient): Male Exam Const: General: no acute distress,
--- NOTE | 2020-11-15 11:07 | ECG_ITS ---
Measurements Intervals [place] Rate: 89 P: RI: 0 QRS: 265 QRSD: 188 T: 90 QT: 423 QTc: 515 Interpretive Statements ELECTRONIC ATRIAL PACEMAKER WITH INHIBITION ELECTRONIC VENTRICULAR PACEMAKER PROBABLY UNDERLYING ATRIAL FIBRILLATION NO FURTHER INTERPRETATION IS POSSIBLE ABNORMAL ECG Electronically Signed On 11-17-2020 6:20:25 CDT by Yovanny Ziegler D.O.
[2020-11-15] MEDS: SODIUM CHLORIDE 0.9% IV 1,000 ML 999 ML IV CONT (11:15)
[2020-11-15 11:36] LABS: Basophils Absolute Auto 0.02 K/mm3 (0.00-0.10); Basophils Percent Auto 0.5 % (0.0-1.0); Eosinophils Absolute Auto 0.13 K/mm3 (0.02-0.50); Eosinophils Percent Auto 3.1 % (1.0-6.0); Hematocrit 24.5 % (37.0-46.0); Hemoglobin 8.1 g/dL (12.4-15.3); Immature Granulocyte Absolute 0.02 K/mm3 (0.00-0.00); Immature Granulocyte Percent A 0.5 % (0.0-0.0); Lymphocytes Absolute Auto 0.28 K/mm3 (1.10-4.50); Lymphocytes Percent Auto 6.6 % (18.0-42.0); Mean Corpuscular HGB Conc 33.1 g/dL (32.0-36.0); Mean Corpuscular Hemoglobin 28.9 pg (27.0-31.0); Mean Corpuscular Volume 87.5 fL (78.0-102.0); Mean Platelet Volume 9.2 fl (8.7-11.0); Monocytes Percent Auto 11.7 % (2.0-11.0); Neutrophils Absolute Auto 3.3 K/mm3 (1.7-7.2); Neutrophils Percent Auto 77.6 % (50.0-70.0); Platelet Count Result 142 K/mm3 (150-420); Red Cell Distribution Width 16.5 % (11.6-14.4); White Blood Count 4.3 K/mm3 (4.8-10.8)
[2020-11-15 11:47] LABS: INR 1.2; Partial Thromboplastin Time 28.1 SEC (23.90-30.70); Prothrombin Time 12.4 Seconds (9.50-12.10)
[2020-11-15 11:57] LABS: Alanine Aminotransferase 16 U/L (16-63); Albumin Level 2.9 g/dL (3.4-5.0); Alkaline Phosphatase 57 U/L (46-116); Anion Gap 7 mmol/L (8-16); Aspartate Amino Transferase 15 U/L (15-37); Bilirubin,Total 0.6 mg/dL (0.00-1.00); Blood Urea Nitrogen 32 mg/dL (7-18); CRP 3.1 mg/dL (0.0-0.9); Calcium 8.3 mg/dL (8.5-10.1); Carbon Dioxide 27 mmol/L (21-32); Chloride 102 mmol/L (98-108); Estimated CRCL calculation 28 ml/min; Estimated Glomerular Filt Rate 28; Glucose 194 mg/dL (70-99); Osmolality Calculated 293 mOsm/kg (285-295); Potassium 4.5 mmol/L (3.5-5.1); Sodium 136 mmol/L (136-145); Total Protein 6.1 g/dL (6.4-8.2)
[2020-11-15 11:58] LABS: SARS-CoV-2 Ag Negative (Negative)
[2020-11-15 11:59] LABS: Troponin I 22.5 ng/L (0.00-60.4)
[2020-11-15 12:18] LABS: Add Urine Microscopic? YES; Appearance Urine Clear (Clear); Bilirubin Urine Negative (Negative); Blood Urine Negative (Negative); Color Urine Yellow (Yellow); Glucose Urine UA Negative (Negative); Ketones Urine Negative (Negative); Leukocyte Esterase Ur Negative LEU/UL (Negative); Nitrate Urine Negative (Negative); Protein Urine Trace (Negative); pH Urine 7.5 (5.0-8.0)
[2020-11-15 12:23] LABS: Bacteria Urine Trace /hpf; RBC Urine None seen /hpf (0-2); Squamous Epithelial Cell Urine Few /hpf (Few); WBC Urine None seen /hpf (0-3)
--- NOTE | 2020-11-15 13:00 | PC.NURSE ---
pt up to bedside commode to attempt bm for stool specimen. pt rang callbell and states that he is dizzy. pt assisted back to stretcher.
[2020-11-15 14:02] LABS: Occult Blood Positive (Negative)
--- NOTE | 2020-11-15 14:23 | PC.NURSE ---
Pts oncologist paged to speak with dr Freeman
--- NOTE | 2020-11-15 15:13 | PC.NURSE ---
After Dr. Sibley spoke with o/c oncologist he then spoke with pt about admission to a higher level of care. pt refuses to be transferred to another facility. Risks and benefits explained to pt per dr sibley. AMA papers signed.
[2020-11-15] MEDS: PANTOPRAZOLE SODIUM IV 40 MG VIAL 80 MG IV PUSH (16:15)
[2020-11-15] MEDS: SODIUM CHLORIDE 0.9% IV 250 ML 30 ML IV CONT (16:22)
--- NOTE | 2020-11-15 18:26 | PC.NURSE ---
Pt sitting on stretcher talking with friend. no complaints at this time.
[2020-11-15 18:32] LABS: Hematocrit 28.2 % (37.0-46.0); Hemoglobin 9.1 g/dL (12.4-15.3)
== END 2020-11-15 18:58 | disposition left against medical advice (07) ==
PROVIDERS: Emergency Provider Emergency Medicine; PCP Internal Medicine
DX: R53.1 Weakness (principal); K92.2 Gastrointestinal hemorrhage, unspecified; Z79.01 Long term (current) use of anticoagulants; I95.9 Hypotension, unspecified; N17.9 Acute kidney failure, unspecified; I48.91 Unspecified atrial fibrillation; E11.9 Type 2 diabetes mellitus without complications; Z87.891 Personal history of nicotine dependence
CPT/HCPCS: 36415; 36430; 70450; 71046; 80053; 81001; 83605; 84484; 85014; 85018; 85025; 85610; 85730; 86140; 86850; 86900; 86901; 86920; 87040; 87426; 93005; 96361; 96374; 99284; C9113; C9803; J7030; J7050; P9016

== ENCOUNTER 2020-11-20 09:25 | Outpatient (CLI) | payer MEDICARE, SELFPAY ==
[2020-11-20 09:50] LABS: Basophils Absolute Auto 0.04 K/mm3 (0.00-0.10); Basophils Percent Auto 0.8 % (0.0-1.0); Eosinophils Percent Auto 3.8 % (1.0-6.0); Hematocrit 27.6 % (37.0-46.0); Hemoglobin 8.8 g/dL (12.4-15.3); Immature Granulocyte Absolute 0.02 K/mm3 (0.00-0.00); Immature Granulocyte Percent A 0.4 % (0.0-0.0); Mean Corpuscular HGB Conc 31.9 g/dL (32.0-36.0); Mean Corpuscular Hemoglobin 28.3 pg (27.0-31.0); Mean Corpuscular Volume 88.7 fL (78.0-102.0); Mean Platelet Volume 9.5 fl (8.7-11.0); Monocytes Absolute Auto 0.75 K/mm3 (0.10-0.90); Monocytes Percent Auto 14.1 % (2.0-11.0); Neutrophils Absolute Auto 3.5 K/mm3 (1.7-7.2); Neutrophils Percent Auto 65.9 % (50.0-70.0); Platelet Count Result 204 K/mm3 (150-420); Red Blood Count 3.11 M/mm3 (4.70-6.10); White Blood Count 5.3 K/mm3 (4.8-10.8)
[2020-11-20 10:44] LABS: Alanine Aminotransferase 16 U/L (16-63); Albumin Level 2.8 g/dL (3.4-5.0); Alkaline Phosphatase 62 U/L (46-116); Anion Gap 10 mmol/L (8-16); Aspartate Amino Transferase 17 U/L (15-37); Bilirubin,Total 0.7 mg/dL (0.00-1.00); Blood Urea Nitrogen 23 mg/dL (7-18); Calcium 8.1 mg/dL (8.5-10.1); Carbon Dioxide 27 mmol/L (21-32); Chloride 103 mmol/L (98-108); Estimated Glomerular Filt Rate 31; Glucose 223 mg/dL (70-99); Osmolality Calculated 300 mOsm/kg (285-295); Potassium 5.2 mmol/L (3.5-5.1); Sodium 140 mmol/L (136-145); Total Protein 5.5 g/dL (6.4-8.2)
== END 2020-11-20 09:26 | disposition home or self-care (01) ==
LOC: CHSLAB 09:27
PROVIDERS: PCP Internal Medicine; Visit Provider Internal Medicine Hematology & Oncology
DX: C7A.8 Other malignant neuroendocrine tumors (principal)
CPT/HCPCS: 36415; 80053; 85025

== ENCOUNTER 2020-12-01 09:27 | Outpatient (CLI) | payer MEDICARE, SELFPAY ==
[2020-12-01 09:50] LABS: Basophils Absolute Auto 0.06 K/mm3 (0.00-0.10); Eosinophils Absolute Auto 0.22 K/mm3 (0.02-0.50); Eosinophils Percent Auto 3.6 % (1.0-6.0); Hematocrit 31.1 % (37.0-46.0); Immature Granulocyte Absolute 0.02 K/mm3 (0.00-0.00); Immature Granulocyte Percent A 0.3 % (0.0-0.0); Lymphocytes Absolute Auto 0.48 K/mm3 (1.10-4.50); Lymphocytes Percent Auto 7.8 % (18.0-42.0); Mean Corpuscular HGB Conc 32.2 g/dL (32.0-36.0); Mean Corpuscular Volume 87.1 fL (78.0-102.0); Mean Platelet Volume 8.9 fl (8.7-11.0); Monocytes Absolute Auto 0.55 K/mm3 (0.10-0.90); Monocytes Percent Auto 8.9 % (2.0-11.0); Neutrophils Absolute Auto 4.9 K/mm3 (1.7-7.2); Neutrophils Percent Auto 78.4 % (50.0-70.0); Platelet Count Result 212 K/mm3 (150-420); Red Blood Count 3.57 M/mm3 (4.70-6.10); Red Cell Distribution Width 14.7 % (11.6-14.4); White Blood Count 6.2 K/mm3 (4.8-10.8)
[2020-12-01 09:52] LABS: Add Urine Microscopic? YES; Appearance Urine Clear (Clear); Bilirubin Urine Negative (Negative); Blood Urine Negative (Negative); Color Urine Light Yellow (Yellow); Glucose Urine UA Negative (Negative); Ketones Urine Negative (Negative); Leukocyte Esterase Ur Negative (Negative); Nitrate Urine Negative (Negative); Protein Urine 1+ (Negative)
[2020-12-01 10:09] LABS: Hemoglobin A1C 8.6 % (<5.7)
[2020-12-01 10:22] LABS: Bacteria Urine None seen /hpf; RBC Urine None seen /hpf (0-2); WBC Urine None seen /hpf (0-3)
[2020-12-01 10:51] LABS: Alanine Aminotransferase 18 U/L (16-63); Albumin Level 3.1 g/dL (3.4-5.0); Alkaline Phosphatase 60 U/L (46-116); Anion Gap 6 mmol/L (8-16); Aspartate Amino Transferase 18 U/L (15-37); Bilirubin,Total 0.6 mg/dL (0.00-1.00); Blood Urea Nitrogen 14 mg/dL (7-18); Calcium 8.1 mg/dL (8.5-10.1); Carbon Dioxide 31 mmol/L (21-32); Chloride 104 mmol/L (98-108); Estimated Glomerular Filt Rate 39; Ferritin 43 ng/mL (26-388); Free T4 Free Thyroxine 1.46 ng/dL (0.76-1.46); Glucose 71 mg/dL (70-99); Iron 21 ug/dL (65-175); NT Pro B Type Natriuretic Pept 13941 pg/mL (0-450); Osmolality Calculated 290 mOsm/kg (285-295); Percent Iron Saturation 7 % (12-57); Potassium 4.1 mmol/L (3.5-5.1); Sodium 141 mmol/L (136-145); Thyroid Stimulating Hormone 3.85 uIU/mL (0.36-3.74); Total Protein 6.1 g/dL (6.4-8.2)
[2020-12-04 19:51] LABS: Testosterone Free 214.8 pg/mL (30.0-135.0); Testosterone Total 1334 ng/dL (250-1100)
== END 2020-12-01 09:28 | disposition home or self-care (01) ==
LOC: CHSLAB 09:29
PROVIDERS: PCP Internal Medicine; Visit Provider Internal Medicine
DX: E03.4 Atrophy of thyroid (acquired) (principal); E11.65 Type 2 diabetes mellitus with hyperglycemia; I50.1 Left ventricular failure, unspecified; E29.1 Testicular hypofunction
CPT/HCPCS: 36415; 80053; 81001; 82728; 83036; 83540; 83550; 83880; 84402; 84403; 84439; 84443; 85025

== ENCOUNTER 2020-12-15 09:12 | Outpatient (CLI) | payer MEDICARE, SELFPAY ==
--- NOTE | ~2020-12-15 | CT_ITS ---
EXAMINATION: CT chest abdomen pelvis wo con EXAM DATE: 12/15/2020 09:36 INDICATION: Neuroendocrine carcinoma. TECHNIQUE: Spiral CT of the chest, abdomen and pelvis was performed without contrast. Axial, beltran l and sagittal images chest, abdomen and pelvis were reviewed. Coronal maximum intensity pixel image s of chest reviewed. The dose-length product (DLP) for this examination was 956.68 mGy-cm. The expo sure was tailored according to patient size (auto mA exposure control), and iterative reconstruction (ASIR) was used as additional dose reduction technique. Comparison is made to prior examination from 10/01/2020. FINDINGS: CHEST: Left-sided pacemaker/AICD device. Ill-defined infiltrative right hilar malignancy again noted insinuating into the hilum. Bronchus intermedius is now nearly completely occluded. Occlusion of mul tiple segmental bronchi distal to this, could be from infiltrative cancer. Improvement in previously seen left upper lobe paramedian opacity. Diffuse edema within the fat planes of the mediastinum, prob ably treatment related change. There is large right pleural effusion. Small to moderate left pleural effusion. These have both increased in size compared to prior study. Mild emphysema. There is no pneu mothorax. Heart normal in size. There are likely coronary arterial stent or stents. Correlate wit h prior cardiac history. ABDOMEN PELVIS: The liver, spleen, adrenal glands and pancreas are unremarkable. There are cholecyst ectomy clips. There is no nephrolithiasis or hydronephrosis. Renal cysts bilaterally, largest exophy tic on the left measuring about 10 cm. There is mild prostatomegaly. Trace free pelvic fluid. The b ladder is unremarkable. There is no retroperitoneal or pelvic lymphadenopathy. There is moderate s cattered arteriosclerotic disease. The appendix is normal. The stomach and small bowel are unremarkable. There is expected amount of c olonic stool. No free intraperitoneal gas. There are no osteoblastic or osteolytic lesions identi fied. IMPRESSION: Progression of infiltrative right hilar malignancy and bilateral pleural effusions with n early occluded bronchus intermedius. Reviewed, dictated and finalized at location B. IMPRESSION: Progression of infiltrative right hilar malignancy and bilateral pl eural effusions with nearly occluded bronchus intermedius.
== END 2020-12-15 09:13 | disposition home or self-care (01) ==
LOC: CHSIMG 09:13
PROVIDERS: PCP Internal Medicine; Visit Provider Internal Medicine Hematology & Oncology
DX: C7A.8 Other malignant neuroendocrine tumors (principal)
CPT/HCPCS: 71250; 74176

== ENCOUNTER 2020-12-18 09:16 | Outpatient (CLI) | payer MEDICARE, SELFPAY ==
[2020-12-18 09:31] LABS: Basophils Absolute Auto 0.05 K/mm3 (0.00-0.10); Basophils Percent Auto 1.2 % (0.0-1.0); Eosinophils Absolute Auto 0.38 K/mm3 (0.02-0.50); Hemoglobin 10.2 g/dL (12.4-15.3); Immature Granulocyte Absolute 0.01 K/mm3 (0.00-0.00); Immature Granulocyte Percent A 0.2 % (0.0-0.0); Lymphocytes Absolute Auto 0.75 K/mm3 (1.10-4.50); Lymphocytes Percent Auto 17.7 % (18.0-42.0); Mean Corpuscular HGB Conc 31.9 g/dL (32.0-36.0); Mean Corpuscular Hemoglobin 26.6 pg (27.0-31.0); Mean Corpuscular Volume 83.6 fL (78.0-102.0); Mean Platelet Volume 9.4 fl (8.7-11.0); Monocytes Absolute Auto 0.56 K/mm3 (0.10-0.90); Monocytes Percent Auto 13.2 % (2.0-11.0); Neutrophils Absolute Auto 2.5 K/mm3 (1.7-7.2); Neutrophils Percent Auto 58.7 % (50.0-70.0); Platelet Count Result 167 K/mm3 (150-420); Red Blood Count 3.83 M/mm3 (4.70-6.10); Red Cell Distribution Width 13.8 % (11.6-14.4); White Blood Count 4.2 K/mm3 (4.8-10.8)
[2020-12-18 11:18] LABS: Alanine Aminotransferase 17 U/L (16-63); Alkaline Phosphatase 64 U/L (46-116); Anion Gap 9 mmol/L (8-16); Aspartate Amino Transferase 16 U/L (15-37); Bilirubin,Total 0.7 mg/dL (0.00-1.00); Blood Urea Nitrogen 15 mg/dL (7-18); Calcium 7.9 mg/dL (8.5-10.1); Carbon Dioxide 27 mmol/L (21-32); Chloride 102 mmol/L (98-108); Estimated Glomerular Filt Rate 41; Glucose 235 mg/dL (70-99); Osmolality Calculated 294 mOsm/kg (285-295); Potassium 5.1 mmol/L (3.5-5.1); Sodium 138 mmol/L (136-145); Total Protein 5.9 g/dL (6.4-8.2)
== END 2020-12-18 09:17 | disposition home or self-care (01) ==
LOC: CHSLAB 09:20
PROVIDERS: PCP Internal Medicine; Visit Provider Internal Medicine Hematology & Oncology
DX: C7A.8 Other malignant neuroendocrine tumors (principal); E03.9 Hypothyroidism, unspecified
CPT/HCPCS: 36415; 80053; 82533; 84443; 85025

== ENCOUNTER 2021-01-04 05:35 | Inpatient (IN) | payer MEDICARE, SELFPAY ==
--- NOTE | ~2021-01-04 | XR_ITS ---
EXAMINATION: XR chest 1V portable INDICATION: Atrial fibrillation TECHNIQUE: Portable AP chest at 0613 hours COMPARISON: 11/15/2020 FINDINGS: There is a small right pleural effusion. There are minimal airspace opacities of the right lung base. No pneumothorax is identified. Cardiomegaly is noted. A triple lead cardiac pacemaker of t he left chest wall ends with leads in expected locations. IMPRESSION: 1. Small right pleural effusion. 2. Minimal right basilar airspace opacity, consistent with atelectasis versus pneumonia. Reviewed, dictated and finalized at location A. IMPRESSION: 1. Small right pleural effusion. 2. Minimal right basilar airspace opacity, consistent with atelectasis versus p neumonia.
[2021-01-04 05:35] VITALS: BP 62/47; PULSE 170; RESP 20; TEMP 35.7; O2SAT 100
[2021-01-04] MEDS: SODIUM CHLORIDE 0.9% IV 1,000 ML 999 ML IV CONT (05:35)
--- NOTE | 2021-01-04 05:44 | ECG_ITS ---
Measurements Intervals [place] Rate: 170 P: [place]: 0 QRS: 111 QRSD: 162 T: -79 QT: 305 QTc: 514 Interpretive Statements WIDE COMPLEX TACHYCARDIA RIGHT AXIS DEVIATION RIGHT BUNDLE BRANCH BLOCK ABNORMAL ECG Electronically Signed On 01-04-2021 9:10:21 CDT by Yovanny Ziegler D.O.
[2021-01-04 06:15] LABS: Basophils Absolute Auto 0.05 K/mm3 (0.00-0.10); Basophils Percent Auto 0.9 % (0.0-1.0); Eosinophils Absolute Auto 0.22 K/mm3 (0.02-0.50); Eosinophils Percent Auto 4.1 % (1.0-6.0); Hematocrit 31.2 % (37.0-46.0); Hemoglobin 9.6 g/dL (12.4-15.3); Immature Granulocyte Absolute 0.03 K/mm3 (0.00-0.00); Immature Granulocyte Percent A 0.6 % (0.0-0.0); Lymphocytes Absolute Auto 0.39 K/mm3 (1.10-4.50); Lymphocytes Percent Auto 7.3 % (18.0-42.0); Mean Corpuscular HGB Conc 30.8 g/dL (32.0-36.0); Mean Corpuscular Hemoglobin 25.7 pg (27.0-31.0); Mean Corpuscular Volume 83.4 fL (78.0-102.0); Monocytes Absolute Auto 0.45 K/mm3 (0.10-0.90); Monocytes Percent Auto 8.5 % (2.0-11.0); Neutrophils Absolute Auto 4.2 K/mm3 (1.7-7.2); Neutrophils Percent Auto 78.6 % (50.0-70.0); Platelet Count Result 200 K/mm3 (150-420); Red Blood Count 3.74 M/mm3 (4.70-6.10); Red Cell Distribution Width 14.5 % (11.6-14.4); White Blood Count 5.3 K/mm3 (4.8-10.8)
[2021-01-04] MEDS: ONDANSETRON INJ 4 MG/2 ML VIAL IV PUSH (06:25)
[2021-01-04 06:32] LABS: INR 1.1; Partial Thromboplastin Time 28.9 SEC (23.90-30.70); Prothrombin Time 11.8 Seconds (9.50-12.10)
[2021-01-04 06:34] LABS: D Dimer 3.13 mg/L (0.19-0.50); Lactic Acid Reflex 1.7 mmol/L (0.4-2.0)
[2021-01-04] MEDS: ADENOSINE IV SOLN 6 MG/2 ML VIAL IV PUSH (06:35)
[2021-01-04 06:39] LABS: Alanine Aminotransferase 16 U/L (16-63); Albumin Level 2.9 g/dL (3.4-5.0); Alkaline Phosphatase 88 U/L (46-116); Anion Gap 6 mmol/L (8-16); Aspartate Amino Transferase 15 U/L (15-37); Bilirubin,Total 0.4 mg/dL (0.00-1.00); Blood Urea Nitrogen 14 mg/dL (7-18); CRP 1.1 mg/dL (0.0-0.9); Calcium 8.4 mg/dL (8.5-10.1); Carbon Dioxide 27 mmol/L (21-32); Chloride 103 mmol/L (98-108); Estimated CRCL calculation 44 ml/min; Estimated Glomerular Filt Rate 47; Glucose 171 mg/dL (70-99); Osmolality Calculated 286 mOsm/kg (285-295); Potassium 4.4 mmol/L (3.5-5.1); Sodium 136 mmol/L (136-145); Thyroid Stimulating Hormone 8.24 uIU/mL (0.36-3.74); Total Protein 6.2 g/dL (6.4-8.2)
[2021-01-04] MEDS: ETOMIDATE 20 MG/10 ML AMPUL 10 MG IV PUSH (06:39)
--- NOTE | 2021-01-04 06:51 | ECG_ITS ---
Measurements Intervals [place] Rate: 70 P: [place]: 0 QRS: -79 QRSD: 218 T: 95 QT: 492 QTc: 531 Interpretive Statements ELECTRONIC VENTRICULAR PACEMAKER NO FURTHER INTERPRETATION IS POSSIBLE ATYPICAL ECG Electronically Signed On 01-04-2021 9:08:04 CDT by Yovanny Ziegler D.O.
--- NOTE | 2021-01-04 06:52 | ED.ARRPALP ---
HPI - Arrhythmia/Palpitations General Chief Complaint: Arrhythmia/Palpitations Stated Complaint: IRR HR Source: patient and EMS Mode of arrival: EMS History of Present Illness HPI narrative: this is a 80-year-old gentleman that presents via EMS with rapid heart rate feeling of palpitations and feeling dizzy started earlier this evening patient has a history of atrial fibrillation, history of CHF diabetes has a defibrillator patient has had pleural effusions with thoracentesis. Patient denies any chest pain, shortness of breath, no fever or chills patient brought in via numerous had IV fluids started and had a initial blood pressure in the systolic of 60s with a diastolic of 47, patient with a history of CHF is on Coreg and the patient has been taking extra doses of Coreg to help with his heart rate. With that increase in Coreg compromise his blood pressure. Currently no fever chills, the patient does have some nausea with no vomiting no abdominal pain no diarrhea or constipation. MD complaint: rapid heart beat and heart racing Onset (ago): hour(s) Duration: constant Severity: similar to previous episodes Context: occurred during rest Arrhythmia history: atrial fibrillation Associated symptoms: denies other symptoms Related Data Home Medications Medication Instructions Recorded Confirmed apixaban 5 mg tablet 5 mg PO BID 02/15/19 01/04/21 carvedilol 12.5 mg tablet 3.125 mg PO Q12H 02/15/19 01/04/21 furosemide 40 mg tablet 40 mg PO QAM 02/15/19 01/04/21 levothyroxine 175 mcg tablet 150 mcg PO DAILY 02/15/19 01/04/21 pravastatin 40 mg tablet 40 mg PO DAILY 02/15/19 01/04/21 Humalog U-100 Insulin 10 unit SUBCUT TID 02/20/19 01/04/21 Lantus U-100 Insulin 50 unit SUBCUT HS 02/20/19 01/04/21 Allergies Allergy/AdvReac Type Severity Reaction Status Date / Time iohexol Allergy Intermediate PETECHAIE Verified 03/09/19 10:03 [From CONTRAST - CT, XRAY] Sulfa (Sulfonamide Allergy Unknown Hives Verified 03/09/19 10:03 Antibiotics) iv antibiotics unknown Allergy Intermediate Rash Uncoded 03/09/19 10:03 Review of Systems Review of Systems: All systems reviewed & are unremarkable except as noted in HPI and below PMFSH Past Medical History Medical History (Updated 01/04/21 @ 07:12 by Christos Nielsen MD) A-fib Diabetes Heart attack History of thyroid cancer Hypertension Kidney stone Pacemaker Thyroid disease Surgical History Surgical History H/O inguinal hernia repair H/O thyroidectomy History of back surgery Hx of BKA S/P bilateral foot surgery Family History Family History Father Heart failure Mother Cerebrovascular accident Sibling Kidney failure Social History Social History Smoking packs per day: 1 Smoking cigarettes per day: 20.0 Years smoked: 50 Smoking pack-years: 50.00 Smoking status: Former smoker Tobacco type: cigarettes Alcohol intake: never Substance use: never Gender identity (if verbalized by the patient): Male Exam Const: General: no acute distress and alert Orientation/consciousness: patient oriented x3 HENMT: Head: normal to inspection Eyes: Conjunctivae: conjunctivae normal Pupils: Equal, round and reactive pupils present EOM: EOMs intact bilaterally Direct Ophthalmoscopy: no photophobia Neck: Neck: normal visual inspection, no lymphadenopathy and no meningeal signs Chest: Chest palpation & inspection: normal inspection of the chest Other: Cardiac defibrillator Cardio: Rate: tachycardic Rhythm: abnormal rhythm Other: heart rate 170s GI: Auscultation: normal bowel sounds Skin: General skin exam: normal color Rashes: no rashes Neuro: General: patient oriented x3, moves all extremities, no meningeal signs, no focal motor deficits and CN's II-XI intact bilaterally Extrem: Gener
[2021-01-04 07:04] LABS: SARS-CoV-2 RNA PCR Negative (Negative)
[2021-01-04 07:13] VITALS: PULSE 170; PULSE 70
[2021-01-04 07:24] VITALS: BP 92/45; PULSE 70; RESP 20; TEMP 36.2; O2SAT 99
--- NOTE | 2021-01-04 07:45 | PC.NURSE ---
Patient admitted to room 208 from ED as inpatient to be monitored d/t increased HR and A-Fib.
[2021-01-04 07:50] VITALS: BP 112/65; PULSE 70; RESP 20; TEMP 35.9; O2SAT 100
[2021-01-04 08:00] VITALS: PULSE 70
[2021-01-04 08:08] LABS: Glucose Point of Care 147 mg/dl (65-105)
[2021-01-04 08:50] VITALS: BMI 21.7
[2021-01-04] MEDS: LEVOTHYROXINE SODIUM 75 MCG TABLET 150 MCG PO (09:32)
--- NOTE | 2021-01-04 11:08 | PM.SD2 ---
Same Day Admit/Disch: HPI History of Present Illness Chief complaint: IRR HR Narrative: Tyson García is a 80 year old male who comes to the hospital for rapid HR and Low BP that he measured at home. Pt states that he took some extra Coreg, about 9 mg, to help get his HR down. He states his HR was around 160s-170s and that his BP has a systolic pressure of 50s-70s with unknown diastolic pressure. These vital signs were taken PRIOR to the Pt taking the extra Coreg. Pt states his PCP was slowly decreasing his Coreg to keep his systolic pressure up. Pt's HR did not go lower after the extra Coreg and with the Pt waiting a while for medication to take effect. Pt states he spoke to his PCP regarding medication to keep his BP up as he looked up about 11 different medications that do this. The ones he mentioned were all IV drip medications. I asked if he asked about Midodrine and he replied no. In the ER Pt's HR was in the 160s with Wide Complex Tachycardia which was cardioverted successfully with electric cardioversion after Adenosine did not work. Pt states his Pacemaker/Defibrillator fired once but did not reduce his HR. Pt was adamant about leaving the hospital by 1000 hours this AM. He did eventually leave AMA. PMHx includes: A fib, DM, [place], Thyroid CA, HTN, Renal Stone, Pacemaker, and states he has cancer everywhere and it is terminal. [facility] Past Medical History Medical History (Updated 01/04/21 @ 12:53 by CARMELLA Rincon) A-fib Acquired hypothyroidism Chronic renal failure Diabetes Heart attack History of thyroid cancer Hypertension Kidney stone Pacemaker Thyroid disease Surgical History Surgical History H/O inguinal hernia repair H/O thyroidectomy History of back surgery Hx of BKA S/P bilateral foot surgery Family History Family History Father Heart failure Mother Cerebrovascular accident Sibling Kidney failure Social History Social History Smoking packs per day: 1 Smoking cigarettes per day: 20.0 Years smoked: 50 Smoking pack-years: 50.00 Smoking status: Current every day smoker Tobacco type: pipe Second hand tobacco smoke exposure: No Alcohol intake: former Substance use: former Gender identity (if verbalized by the patient): Male Spiritual care concerns: No Same Day Admit/Disch: Med Pre-admit Medications Home Medications Medication Instructions Recorded Confirmed Type apixaban 5 mg tablet 5 mg PO BID 02/15/19 01/04/21 History carvedilol 12.5 mg tablet 3.125 mg PO Q12H 02/15/19 01/04/21 History furosemide 40 mg tablet 40 mg PO QAM 02/15/19 01/04/21 History levothyroxine 175 mcg tablet 150 mcg PO DAILY 02/15/19 01/04/21 History pravastatin 40 mg tablet 40 mg PO DAILY 02/15/19 01/04/21 History Humalog U-100 Insulin 10 unit SUBCUT TID 02/20/19 01/04/21 History Lantus U-100 Insulin 50 unit SUBCUT HS 02/20/19 01/04/21 History Exam Const: General: cooperative, comfortable, no acute distress, alert, awake and Physically active Nutritional Appearance: average body habitus Resp: Effort & Inspection: normal respiratory effort Auscultation: clear to auscultation bilaterally Cardio: Rate: regular rate (Paced) GI: GI Palp: Yes Soft to palpation and No Tenderness to palpation present (GI) Auscultation: normal bowel sounds Skin: General skin exam: normal color and dry skin Neuro: General: oriented to person, oriented to place and oriented to time Cranial nerves: Yes CN's II-XII intact bilaterally (grossly intact) Cognition (Neuro): normal cognition Speech: normal speech Extrem: General: no pedal edema and other (Prosthetic RLE) Psych: Appearance: grossly normal Mental Status: mental status grossly normal Speech and movement: Normal speech and movement present Affect: normal affect Attitude: cooperative Though
--- NOTE | 2021-01-04 11:55 | PC.NURSE ---
Patient discharged home AMA and transported via personal vehicle. Patient was informed of his decision to go home and the circumstances involved in leaving AMA. Patient acknowledged understanding of the situation and is insistent on being discharged. Patient stated he was informed that he was only being admitted for observations for couple hours post cardioversion. both IV sites discontinued and removed prior to discharge and all personal items taken with patient. Staff escorted patient to main entrance and assisted into personal vehicle for transport home.
--- NOTE | 2021-01-05 12:38 | PC.NURSE ---
Pt left prior to getting discharge instructions. Pt states there was just no reason for me to be there to be observed, I was doing fine .
== END 2021-01-04 11:55 | disposition left against medical advice (07) | DRG 309 ==
LOC: CHSED 07:13 → CHS2ND 07:28
PROVIDERS: Admitting Provider Emergency Medicine; Emergency Provider Emergency Medicine; PCP Internal Medicine; Visit Provider Emergency Medicine
DX: I48.11 Longstanding persistent atrial fibrillation (principal); I11.0 Hypertensive heart disease with heart failure; I50.9 Heart failure, unspecified; E11.9 Type 2 diabetes mellitus without complications; I47.1 Supraventricular tachycardia; Z95.810 Presence of automatic (implantable) cardiac defibrillator; Z79.4 Long term (current) use of insulin; Z79.01 Long term (current) use of anticoagulants; Z85.850 Personal history of malignant neoplasm of thyroid; Z20.822 Contact with and (suspected) exposure to COVID-19; C7A.8 Other malignant neuroendocrine tumors; I48.20 Chronic atrial fibrillation, unspecified; I12.9 Hypertensive chronic kidney disease with stage 1 through stage 4 chronic kidney disease, or unspecified chronic kidney disease; E11.22 Type 2 diabetes mellitus with diabetic chronic kidney disease; N18.9 Chronic kidney disease, unspecified; E89.0 Postprocedural hypothyroidism; I25.2 Old myocardial infarction; R79.89 Other specified abnormal findings of blood chemistry; F17.210 Nicotine dependence, cigarettes, uncomplicated; Z95.0 Presence of cardiac pacemaker; Z87.442 Personal history of urinary calculi; Z89.511 Acquired absence of right leg below knee
CPT/HCPCS: 36415; 71045; 80053; 82948; 83605; 84443; 84484; 85025; 85380; 85610; 85730; 86140; 87040; 92960; 93005; 96361; 96374; 96375; 99285; A9270; C9803; J0153; J2405; J7030; U0003; U0005

== ENCOUNTER 2021-01-10 17:41 | Emergency (ER) | payer MEDICARE, SELFPAY ==
[2021-01-10 18:00] VITALS: BP 135/62; PULSE 86; RESP 18; TEMP 37.1; O2SAT 99
--- NOTE | 2021-01-10 18:12 | ED.ARRPALP ---
HPI - Arrhythmia/Palpitations General Chief Complaint: Arrhythmia/Palpitations Stated Complaint: ambulance Source: patient Mode of arrival: EMS Limitations: no limitations History of Present Illness HPI narrative: this is a 80-year-old gentleman DNR that presents with a history of CHF with some addition be later that fired earlier today patient became dizzy, EMS was called and brought to the hospital. Currently the patient's vital signs are stable EKG shows right bundle branch block with a ventricular paced rhythm with a rate of 81 currently no symptoms there is no chest pain no shortness of breath the patient feels well and is anxious to go home. There is no chest pain no shortness of breath no fever chills no nausea vomiting or abdominal pain. MD complaint: palpitations and irregular heart beat Onset (ago): hour(s) Duration: now resolved Severity: moderate Context: occurred during rest Arrhythmia history: AICD Related Data Home Medications Medication Instructions Recorded Confirmed apixaban 5 mg tablet 5 mg PO BID 02/15/19 01/04/21 carvedilol 12.5 mg tablet 3.125 mg PO Q12H 02/15/19 01/04/21 furosemide 40 mg tablet 40 mg PO QAM 02/15/19 01/04/21 levothyroxine 175 mcg tablet 150 mcg PO DAILY 02/15/19 01/04/21 pravastatin 40 mg tablet 40 mg PO DAILY 02/15/19 01/04/21 Humalog U-100 Insulin 10 unit SUBCUT TID 02/20/19 01/04/21 Lantus U-100 Insulin 50 unit SUBCUT HS 02/20/19 01/04/21 Allergies Allergy/AdvReac Type Severity Reaction Status Date / Time iohexol Allergy Intermediate PETECHAIE Verified 03/09/19 10:03 [From CONTRAST - CT, XRAY] Sulfa (Sulfonamide Allergy Unknown Hives Verified 03/09/19 10:03 Antibiotics) iv antibiotics unknown Allergy Intermediate Rash Uncoded 03/09/19 10:03 Review of Systems Review of Systems: All systems reviewed & are unremarkable except as noted in HPI and below PMFSH Past Medical History Medical History A-fib Acquired hypothyroidism Chronic renal failure Diabetes Heart attack History of thyroid cancer Hypertension Kidney stone Pacemaker Thyroid disease Surgical History Surgical History H/O inguinal hernia repair H/O thyroidectomy History of back surgery Hx of BKA S/P bilateral foot surgery Family History Family History Father Heart failure Mother Cerebrovascular accident Sibling Kidney failure Social History Social History Smoking packs per day: 1 Smoking cigarettes per day: 20.0 Years smoked: 50 Smoking pack-years: 50.00 Smoking status: Current every day smoker Tobacco type: pipe Second hand tobacco smoke exposure: No Alcohol intake: former Substance use: former Gender identity (if verbalized by the patient): Male Spiritual care concerns: No Exam Const: General: no acute distress Orientation/consciousness: patient oriented x3 HENMT: Head: normal to inspection Eyes: Conjunctivae: conjunctivae normal Pupils: Equal, round and reactive pupils present EOM: EOMs intact bilaterally Direct Ophthalmoscopy: no photophobia Neck: Neck: normal visual inspection, no lymphadenopathy and no meningeal signs Chest: Chest palpation & inspection: normal inspection of the chest Resp: Effort & Inspection: normal respiratory effort Auscultation: clear to auscultation bilaterally Cardio: Rate: regular rate Rhythm: regular rhythm and abnormal rhythm GI: Auscultation: normal bowel sounds : Testes: Testes normal Urinary Catheter: Urinary Catheter: patent and draining Back/Spine/Pelvis: Back: no CVA tenderness Neuro: General: patient oriented x3 and moves all extremities Extrem: General: normal to inspection and no pedal edema Psych: Mental Status: mental status grossly normal Affect: normal affect Cours
[2021-01-10 18:22] VITALS: BP 124/57; PULSE 76; RESP 18; O2SAT 99
--- NOTE | 2021-01-10 18:50 | ECG_ITS ---
Measurements Intervals [place] Rate: 81 P: [place]: 0 QRS: 133 QRSD: 178 T: 63 QT: 416 QTc: 483 Interpretive Statements ELECTRONIC VENTRICULAR PACEMAKER WITH INHIBITION UNDERLYING PROBABLY ATRIAL FIBRILLATION VENTRICULAR PREMATURE COMPLEXES RIGHT AXIS DEVIATION RIGHT BUNDLE BRANCH BLOCK BASELINE ARTIFACT- I, II, III, AVR, AVL, AVF, V4-V6 ABNORMAL ECG Electronically Signed On 01-12-2021 8:19:01 CDT by Yovanny Ziegler D.O.
== END 2021-01-10 18:42 | disposition home or self-care (01) ==
PROVIDERS: Emergency Provider Emergency Medicine; PCP Internal Medicine
DX: Z95.0 Presence of cardiac pacemaker (principal); R00.2 Palpitations; E03.9 Hypothyroidism, unspecified; E11.9 Type 2 diabetes mellitus without complications; I10 Essential (primary) hypertension; F17.200 Nicotine dependence, unspecified, uncomplicated; Z79.4 Long term (current) use of insulin
CPT/HCPCS: 93005; 99282; 99283

== ENCOUNTER 2021-01-29 09:11 | Outpatient (CLI) | payer MEDICARE, SELFPAY ==
[2021-01-29 09:49] LABS: Basophils Absolute Auto 0.04 K/mm3 (0.00-0.10); Basophils Percent Auto 0.9 % (0.0-1.0); Eosinophils Absolute Auto 0.15 K/mm3 (0.02-0.50); Eosinophils Percent Auto 3.5 % (1.0-6.0); Hematocrit 32.5 % (37.0-46.0); Hemoglobin 9.9 g/dL (12.4-15.3); Immature Granulocyte Absolute 0.02 K/mm3 (0.00-0.00); Immature Granulocyte Percent A 0.5 % (0.0-0.0); Lymphocytes Absolute Auto 0.36 K/mm3 (1.10-4.50); Lymphocytes Percent Auto 8.4 % (18.0-42.0); Mean Corpuscular HGB Conc 30.5 g/dL (32.0-36.0); Mean Corpuscular Hemoglobin 24.1 pg (27.0-31.0); Mean Corpuscular Volume 79.1 fL (78.0-102.0); Monocytes Absolute Auto 0.49 K/mm3 (0.10-0.90); Monocytes Percent Auto 11.4 % (2.0-11.0); Neutrophils Absolute Auto 3.2 K/mm3 (1.7-7.2); Neutrophils Percent Auto 75.3 % (50.0-70.0); Platelet Count Result 184 K/mm3 (150-420); Red Blood Count 4.11 M/mm3 (4.70-6.10); Red Cell Distribution Width 15.7 % (11.6-14.4); White Blood Count 4.3 K/mm3 (4.8-10.8)
== END 2021-01-29 09:12 | disposition home or self-care (01) ==
LOC: CHSLAB 09:16
PROVIDERS: PCP Internal Medicine; Visit Provider Internal Medicine Hematology & Oncology
DX: C7A.8 Other malignant neuroendocrine tumors (principal)
CPT/HCPCS: 36415; 85025

== ENCOUNTER 2021-02-15 05:25 | Emergency (ER) | payer MEDICARE, SELFPAY ==
--- NOTE | ~2021-02-15 | XR_ITS ---
EXAMINATION: XR chest 1V portable INDICATION: Shortness of breath TECHNIQUE: Portable AP chest at 0608 hours COMPARISON: 01/04/2021 FINDINGS: There are airspace opacities throughout the right lung with interval worsening. A moderate- sized right pleural effusions present which has increased in size. There is no pneumothorax. The card iomediastinal silhouette is stable. A triple lead cardiac pacemaker of the left chest wall ends with leads in expected locations. IMPRESSION: 1. Moderate size right pleural effusion with increase. 2. Increasing right-sided airspace opacities, consistent with atelectasis versus pneumonia. Reviewed, dictated and finalized at location A. EQUIPMENT MAINTENANCE SUPERVISOR IMPRESSION: 1. Moderate size right pleural effusion with increase. 2. Increasing right-sided airspace opacities, consistent with atelectasis versu s pneumonia.
--- NOTE | 2021-02-15 05:41 | ECG_ITS ---
Measurements Intervals [place] Rate: 77 P: [place]: 0 QRS: 138 QRSD: 157 T: 42 QT: 414 QTc: 470 Interpretive Statements ELECTRONIC VENTRICULAR PACEMAKER WITH INHIBITION VENTRICULAR PREMATURE COMPLEX UNDERLYING PROBABLY ATRIAL FIBRILLATION RIGHT BUNDLE BRANCH BLOCK LEFT POSTERIOR FASCICULAR BLOCK BASELINE ARTIFACT- I, III, AVL NO FURTHER INTERPRETATION IS POSSIBLE ABNORMAL ECG Electronically Signed On 02-16-2021 8:56:52 ENTERTAINER OR VARIETY ARTIST by Yovanny Ziegler D.O.
[2021-02-15 05:42] VITALS: BP 115/75; PULSE 82; RESP 31; TEMP 37; O2SAT 100
[2021-02-15] MEDS: FUROSEMIDE INJ 40 MG/4 ML VIAL IV PUSH (05:57)
[2021-02-15 06:13] LABS: Basophils Absolute Auto 0.05 K/mm3 (0.00-0.10); Basophils Percent Auto 0.7 % (0.0-1.0); Eosinophils Absolute Auto 0.25 K/mm3 (0.02-0.50); Eosinophils Percent Auto 3.5 % (1.0-6.0); Hematocrit 36.7 % (37.0-46.0); Hemoglobin 10.9 g/dL (12.4-15.3); Immature Granulocyte Absolute 0.04 K/mm3 (0.00-0.00); Immature Granulocyte Percent A 0.6 % (0.0-0.0); Lymphocytes Absolute Auto 0.43 K/mm3 (1.10-4.50); Mean Corpuscular HGB Conc 29.7 g/dL (32.0-36.0); Mean Corpuscular Hemoglobin 23.7 pg (27.0-31.0); Mean Corpuscular Volume 79.8 fL (78.0-102.0); Monocytes Absolute Auto 0.69 K/mm3 (0.10-0.90); Monocytes Percent Auto 9.7 % (2.0-11.0); Neutrophils Absolute Auto 5.7 K/mm3 (1.7-7.2); Neutrophils Percent Auto 79.5 % (50.0-70.0); Platelet Count Result 208 K/mm3 (150-420); Red Cell Distribution Width 16.9 % (11.6-14.4); White Blood Count 7.1 K/mm3 (4.8-10.8)
[2021-02-15 06:18] VITALS: PULSE 86
--- NOTE | 2021-02-15 06:22 | PC.NURSE ---
pt arrived via [facility] due to SOB. EMS started a 20g IV in the right hand, gave pt solumedrol 125mg IV and one dueneb breathing treatment, and placed on supplemental oxygen at 4L.
[2021-02-15 06:41] LABS: Alanine Aminotransferase 9 U/L (16-63); Albumin Level 2.9 g/dL (3.4-5.0); Alkaline Phosphatase 96 U/L (46-116); Anion Gap 7 mmol/L (8-16); Aspartate Amino Transferase 14 U/L (15-37); Bilirubin,Total 0.6 mg/dL (0.00-1.00); Blood Urea Nitrogen 14 mg/dL (7-18); Calcium 8.7 mg/dL (8.5-10.1); Carbon Dioxide 28 mmol/L (21-32); Chloride 100 mmol/L (98-108); Estimated CRCL calculation 45 ml/min; Estimated Glomerular Filt Rate 50; Glucose 164 mg/dL (70-99); Osmolality Calculated 284 mOsm/kg (285-295); Potassium 4.5 mmol/L (3.5-5.1); Sodium 135 mmol/L (136-145); Total Protein 6.7 g/dL (6.4-8.2)
[2021-02-15 06:42] LABS: Troponin I 22.5 ng/L (0.00-60.4)
--- NOTE | 2021-02-15 06:49 | ED.SOB ---
HPI - SOB/Dyspnea General Chief Complaint: Shortness of Breath/Dyspnea Stated Complaint: RESPIRATORY DISTRESS Source: patient Mode of arrival: EMS Limitations: no limitations History of Present Illness HPI Narrative: this is a 80-year-old gentleman that presents with some shortness of breath via EMS that started overnight the patient has a history of CHF with right pleural effusion that typically has tapped and drained once a week patient is afebrile his vital signs are stable blood pressure is 115/75. There is a mild nonproductive cough, with no chest pain. The patient has history of AFib has a ventricular pacemaker, had recently Diederich activated the fibula later. There is no abdominal pain no fever chills no nausea vomiting. MD elicited complaint: shortness of breath Pertinent past history: COPD and congestive heart failure Onset (ago): hour(s) Related Data Home Medications Medication Instructions Recorded Confirmed apixaban 5 mg tablet 5 mg PO BID 02/15/19 02/15/21 carvedilol 12.5 mg tablet 3.125 mg PO Q12H 02/15/19 02/15/21 levothyroxine 175 mcg tablet 150 mcg PO DAILY 02/15/19 02/15/21 pravastatin 40 mg tablet 40 mg PO DAILY 02/15/19 02/15/21 Humalog U-100 Insulin 10 unit SUBCUT TID 02/20/19 02/15/21 Lantus U-100 Insulin 50 unit SUBCUT HS 02/20/19 02/15/21 lorazepam 1 mg PO DAILY 02/15/21 02/15/21 Allergies Allergy/AdvReac Type Severity Reaction Status Date / Time iohexol Allergy Intermediate PETECHAIE Verified 02/15/21 06:11 [From CONTRAST - CT, XRAY] Sulfa (Sulfonamide Allergy Unknown Hives Verified 02/15/21 06:11 Antibiotics) iv antibiotics unknown Allergy Intermediate Rash Uncoded 03/09/19 10:03 Review of Systems Review of Systems: All systems reviewed & are unremarkable except as noted in HPI and below PMFSH Past Medical History Medical History A-fib Acquired hypothyroidism Chronic renal failure Diabetes Heart attack History of thyroid cancer Hypertension Kidney stone Pacemaker Thyroid disease Surgical History Surgical History H/O inguinal hernia repair H/O thyroidectomy History of back surgery Hx of BKA S/P bilateral foot surgery Family History Family History Father Heart failure Mother Cerebrovascular accident Sibling Kidney failure Social History Social History Smoking packs per day: 1 Smoking cigarettes per day: 20.0 Years smoked: 50 Smoking pack-years: 50.00 Smoking status: Current every day smoker Tobacco type: pipe Second hand tobacco smoke exposure: No Alcohol intake: former Substance use: former Gender identity (if verbalized by the patient): Male Spiritual care concerns: No Exam Const: General: no acute distress and alert Orientation/consciousness: patient oriented x3 HENMT: Head: normal to inspection Eyes: Conjunctivae: conjunctivae normal Pupils: Equal, round and reactive pupils present Neck: Neck: normal visual inspection Chest: Chest palpation & inspection: normal inspection of the chest Resp: Effort & Inspection: normal respiratory effort Auscultation: diminished lung sounds ( Right-sided) on the right Cardio: Rate: regular rate Rhythm: regular rhythm GI: GI Palp: Yes Soft to palpation Percussion: Yes normal to percussion Back/Spine/Pelvis: Back: no CVA tenderness Skin: General skin exam: normal color Rashes: no rashes Neuro: General: patient oriented x3 and moves all extremities Extrem: General: normal to inspection and no pedal edema Psych: Mental Status: mental status grossly normal Affect: normal affect Course Course Emergency Course: x-ray reviewed with patient which shows a moderate size right pleural effusion with some opacities in the right upper lung patient to receive 1mg
[2021-02-15 07:10] VITALS: BP 121/64; PULSE 87; RESP 20; TEMP 36.7; O2SAT 95
[2021-02-15 07:11] LABS: SARS-CoV-2 RNA PCR Negative (Negative)
--- NOTE | 2021-02-16 13:06 | PC.NURSE ---
Pt called stating [facility] in [place] did not have prescription. Attempted to call prescription but pharmacist was on lunch. Pt notified of situation and aware that it should be ready shortly. Verbalized understanding.
--- NOTE | 2021-02-16 14:06 | PC.NURSE ---
Levofloxacin 500 mg PO daily x 7 days called into [facility] in [place].
== END 2021-02-15 07:15 | disposition home or self-care (01) ==
PROVIDERS: Emergency Provider Emergency Medicine; PCP Internal Medicine
DX: J18.9 Pneumonia, unspecified organism (principal); Z20.822 Contact with and (suspected) exposure to COVID-19; I48.91 Unspecified atrial fibrillation; E11.9 Type 2 diabetes mellitus without complications; I10 Essential (primary) hypertension; F17.200 Nicotine dependence, unspecified, uncomplicated
CPT/HCPCS: 36415; 71045; 80053; 84484; 85025; 93005; 96365; 96375; 99283; 99284; C9803; J0696; J1940; U0003; U0005

== ENCOUNTER 2021-03-02 09:10 | Outpatient (CLI) | payer MEDICARE, SELFPAY ==
[2021-03-02 09:27] LABS: Hematocrit 33.9 % (37.0-46.0); Hemoglobin 10.2 g/dL (12.4-15.3); Mean Corpuscular HGB Conc 30.1 g/dL (32.0-36.0); Mean Corpuscular Hemoglobin 23.4 pg (27.0-31.0); Mean Corpuscular Volume 77.9 fL (78.0-102.0); Mean Platelet Volume 9.1 fl (8.7-11.0); Platelet Count Result 169 K/mm3 (150-420); Red Blood Count 4.35 M/mm3 (4.70-6.10); Red Cell Distribution Width 18.2 % (11.6-14.4); White Blood Count 5.3 K/mm3 (4.8-10.8)
[2021-03-02 09:34] LABS: Add Urine Microscopic? NO; Appearance Urine Clear (Clear); Bilirubin Urine Negative (Negative); Blood Urine Negative (Negative); Color Urine Light Yellow (Yellow); Glucose Urine UA Negative (Negative); Ketones Urine Negative (Negative); Leukocyte Esterase Ur Negative (Negative); Nitrate Urine Negative (Negative); Protein Urine Negative (Negative); Specific Grav Ur 1.015 (1.010-1.020); Urobilinogen Urine 0.2 mg/dL (0.2-1.0); pH Urine 7.5 (5.0-8.0)
[2021-03-02 09:41] LABS: Creatinine Urine 48.98 mg/dL (40-278); Hemoglobin A1C 7.1 % (<5.7); MALB Creatinine Ratio 57.1 mg/g (0-30)
[2021-03-02 10:07] LABS: Band Neutrophils Percent 0 % (0-6); Eosinophils Absolute Manual 0.95 K/mm3 (0.02-0.5); Eosinophils Percent Manual 18 % (1-6); Lymphocytes Absolute Manual 0.21 K/mm3 (1.1-4.5); Lymphocytes Percent Manual 4 % (18-44); Monocytes Absolute Manual 0.42 K/mm3 (0.1-0.90); Monocytes Percent Manual 8 % (3-9); Neutrophils Absolute Manual 3.71 K/mm3 (1.3-6.7); Neutrophils Percent Manual 70 % (46-73); Platelet Estimate Adequate (Adequate); Total Cells Counted 100
[2021-03-02 10:35] LABS: Alanine Aminotransferase 18 U/L (16-63); Alkaline Phosphatase 110 U/L (46-116); Anion Gap 6 mmol/L (8-16); Aspartate Amino Transferase 15 U/L (15-37); Bilirubin,Total 0.4 mg/dL (0.00-1.00); Blood Urea Nitrogen 15 mg/dL (7-18); Carbon Dioxide 31 mmol/L (21-32); Chloride 101 mmol/L (98-108); Cholesterol 114 mg/dL (0-200); Estimated Glomerular Filt Rate 49; Free T4 Free Thyroxine 1.17 ng/dL (0.76-1.46); Glucose 122 mg/dL (70-99); HDL Direct 30 mg/dL (40-60); LDL Cholesterol Calculated 70 mg/dL (<130); NT Pro B Type Natriuretic Pept 5364 pg/mL (0-450); Osmolality Calculated 287 mOsm/kg (285-295); Sodium 138 mmol/L (136-145); Thyroid Stimulating Hormone 3.03 uIU/mL (0.36-3.74); Total Protein 6.2 g/dL (6.4-8.2); Triglycerides 71 mg/dL (0-150)
[2021-03-05 16:21] LABS: Testosterone Free 37.5 pg/mL (30.0-135.0); Testosterone Total 310 ng/dL (250-1100)
== END 2021-03-02 09:11 | disposition home or self-care (01) ==
LOC: CHSLAB 09:12
PROVIDERS: PCP Internal Medicine; Visit Provider Internal Medicine
DX: I50.9 Heart failure, unspecified (principal); E83.51 Hypocalcemia; N18.30 Chronic kidney disease, stage 3 unspecified; E11.9 Type 2 diabetes mellitus without complications; D64.9 Anemia, unspecified
CPT/HCPCS: 36415; 80053; 80061; 81003; 82043; 83036; 83880; 84402; 84403; 84439; 84443; 85025

== ENCOUNTER 2021-03-05 09:25 | Outpatient (CLI) | payer MEDICARE, SELFPAY ==
[2021-03-05 09:47] LABS: Hematocrit 34.3 % (37.0-46.0); Hemoglobin 10.3 g/dL (12.4-15.3); Mean Corpuscular Hemoglobin 23.7 pg (27.0-31.0); Mean Corpuscular Volume 78.9 fL (78.0-102.0); Mean Platelet Volume 9.9 fl (8.7-11.0); Platelet Count Result 177 K/mm3 (150-420); Red Blood Count 4.35 M/mm3 (4.70-6.10); Red Cell Distribution Width 18.9 % (11.6-14.4); White Blood Count 5.2 K/mm3 (4.8-10.8)
[2021-03-05 10:29] LABS: Band Neutrophils Percent 0 % (0-6); Eosinophils Absolute Manual 0.57 K/mm3 (0.02-0.5); Eosinophils Percent Manual 11 % (1-6); Lymphocytes Absolute Manual 0.46 K/mm3 (1.1-4.5); Lymphocytes Percent Manual 9 % (18-44); Monocytes Absolute Manual 0.36 K/mm3 (0.1-0.90); Monocytes Percent Manual 7 % (3-9); Neutrophils Absolute Manual 3.79 K/mm3 (1.3-6.7); Neutrophils Percent Manual 73 % (46-73); Platelet Estimate Adequate (Adequate); Total Cells Counted 100
[2021-03-05 10:30] LABS: Alanine Aminotransferase 15 U/L (16-63); Albumin Level 2.9 g/dL (3.4-5.0); Alkaline Phosphatase 107 U/L (46-116); Anion Gap 8 mmol/L (8-16); Aspartate Amino Transferase 16 U/L (15-37); Bilirubin,Total 0.5 mg/dL (0.00-1.00); Blood Urea Nitrogen 14 mg/dL (7-18); Calcium 8.4 mg/dL (8.5-10.1); Carbon Dioxide 28 mmol/L (21-32); Chloride 100 mmol/L (98-108); Estimated Glomerular Filt Rate 47; Glucose 160 mg/dL (70-99); Osmolality Calculated 285 mOsm/kg (285-295); Potassium 4.4 mmol/L (3.5-5.1); Sodium 136 mmol/L (136-145); Total Protein 6.1 g/dL (6.4-8.2)
== END 2021-03-05 09:26 | disposition home or self-care (01) ==
LOC: CHSLAB 09:26
PROVIDERS: PCP Internal Medicine; Visit Provider Internal Medicine Hematology & Oncology
DX: C7A.8 Other malignant neuroendocrine tumors (principal)
CPT/HCPCS: 36415; 80053; 85025

== ENCOUNTER 2021-03-18 09:27 | Outpatient (CLI) | payer MEDICARE, SELFPAY ==
--- NOTE | ~2021-03-18 | CT_ITS ---
EXAMINATION: CT chest abdomen pelvis wo con DATE: 03/18/2021 10:11 INDICATION: Neuroendocrine carcinoma, carcinoid bronchial adenoma TECHNIQUE: Transaxial computed tomographic images of the chest, abdomen, and pelvis were obtained wit hout intravenous contrast. The dose-length product (DLP) was 1009.40 mGy-cm. Automated exposure contr ol and iterative reconstruction technique were employed. COMPARISON: 12/15/2020, 10/01/2020 FINDINGS: CHEST CT: There are moderate-sized right and small left pleural effusions, both with interval decrease in size. There are bilateral perihilar reticular opacities without significant change. There is a stable righ t perihilar masslike opacity contiguous with subcarinal lymph nodes which causes stricture of the bro nchus intermedius and occlusion of the right middle lobe bronchus. There is unchanged collapse of the right middle lobe. Cardiomegaly is noted. There is a small pericardial effusion. Calcified pulmonary nodules and calcified right hilar and mediastinal lymph nodes are consistent with old granulomatous disease. There is severe thoracic spondylosis. ABDOMEN/PELVIS CT: The liver, spleen, pancreas, and adrenal glands are normal. The gallbladder is surgically absent. Cys ts of the kidneys measure up to 9.8 cm on the left. There is calcified atherosclerosis of the aorta a nd many of the other arteries. No pathologically enlarged abdominal or pelvic lymph nodes are identif ied. There is no free intraperitoneal gas or evidence of bowel obstruction. There is severe lumbar sp ondylosis at L3-4. IMPRESSION: 1. Moderate size right and small left pleural effusions with interval decrease in size. 2. Chronic right perihilar masslike opacity contiguous with subcarinal lymph nodes and resulting righ t middle lobe collapse, consistent with treated malignancy. Residual malignancy may be present. Reviewed, dictated and finalized at location A. ATION NURSE IMPRESSION: 1. Moderate size right and small left pleural effusions with interval decrease in size. 2. Chronic right perihilar masslike opacity contiguous with subcarinal lymph no gunjan and resulting right middle lobe collapse, consistent with treated malignanc y. Residual malignancy may be present.
--- NOTE | ~2021-03-18 | CT_ITS ---
EXAMINATION: CT brain wo con EXAM DATE: 03/18/2021 10:11 INDICATION: Carcinoid bronchial adenoma, Neuroendocrine carcinoma. TECHNIQUE: Spiral CT of the head was performed without contrast. Axial, coronal and sagittal images were reviewed. The dose-length product (DLP) for this examination was 681.00 mGy-cm. The exposure w as tailored according to patient size, and iterative reconstruction (ASIR) was used as additional dos e reduction technique. Comparison is made to prior examination from 11/15/2020. FINDINGS: There is no acute intraparenchymal hemorrhage. No evidence of intraparenchymal brain mass lesion. No evidence of acute infarction. Please note that initial head CT has limited sensitivity f or small or acute infarctions. Small old left cerebellar infarction. There is mild periventricular and subcortical hypodensity, nonspecific but probably related to small vessel ischemic disease. The re is moderate prominence of the sulci and ventricles related to cerebral atrophy. There is intracr anial carotid arteriosclerosis. There are no extra-axial collections. There is no mass effect or mi dline shift. Patient has had bilateral ocular lens surgery. Soft tissue is unremarkable. The visua lized sinuses and mastoid air cells are well aerated. IMPRESSION: 1. Chronic age related findings. 2. Small old left cerebellar infarction. Reviewed, dictated and finalized at location B. ANESTHESIOLOGY
== END 2021-03-18 09:28 | disposition home or self-care (01) ==
LOC: CHSIMG 09:28
PROVIDERS: PCP Internal Medicine; Visit Provider Internal Medicine Hematology & Oncology
DX: C7A.090 Malignant carcinoid tumor of the bronchus and lung (principal); C7A.8 Other malignant neuroendocrine tumors
CPT/HCPCS: 70450; 71250; 74176

== ENCOUNTER 2021-05-20 00:12 | Emergency (ER) | payer MEDICARE, SELFPAY ==
[2021-05-20 00:19] VITALS: BP 116/59; PULSE 70; RESP 16; TEMP 35.7; O2SAT 100
--- NOTE | 2021-05-20 00:43 | ED.GENADULT ---
HPI - General Adult General Chief complaint: Unspecified Stated complaint: wrong medication Time Seen by Provider: 05/20/21 00:15 Source: patient and RN notes reviewed Mode of arrival: ambulatory Limitations: no limitations History of Present Illness Onset (ago): hour(s) (2) Location: abdomen (pt took too much of a Rx. no acute sxs. pt not suicidal.) Radiation: other (no acute pain.) Exacerbating factors: none Associated symptoms: denies other symptoms Treatments prior to arrival: none Related Data Home Medications Medication Instructions Recorded Confirmed apixaban 5 mg tablet 5 mg PO BID 02/15/19 05/20/21 carvedilol 12.5 mg tablet 3.125 mg PO Q12H 02/15/19 05/20/21 levothyroxine 175 mcg tablet 150 mcg PO DAILY 02/15/19 05/20/21 pravastatin 40 mg tablet 40 mg PO DAILY 02/15/19 05/20/21 Humalog U-100 Insulin 10 unit SUBCUT TID 02/20/19 05/20/21 Lantus U-100 Insulin 50 unit SUBCUT HS 02/20/19 05/20/21 lorazepam 1 mg PO DAILY 02/15/21 05/20/21 megestrol 40 mg PO DAILY 05/20/21 05/20/21 pantoprazole 40 mg PO DAILY 05/20/21 05/20/21 testosterone cypionate 200 mg IM PER PKG DIR 05/20/21 05/20/21 Allergies Allergy/AdvReac Type Severity Reaction Status Date / Time iohexol Allergy Intermediate PETECHAIE Verified 05/20/21 00:24 [From CONTRAST - CT, XRAY] Sulfa (Sulfonamide Allergy Unknown Hives Verified 02/15/21 06:11 Antibiotics) iv antibiotics unknown Allergy Intermediate Rash Uncoded 03/09/19 10:03 Review of Systems Review of Systems: All systems reviewed & are unremarkable except as noted in HPI and below PMFSH Past Medical History Medical History A-fib Acquired hypothyroidism Chronic renal failure Diabetes Heart attack History of thyroid cancer Hypertension Kidney stone Pacemaker Thyroid disease Surgical History Surgical History H/O inguinal hernia repair H/O thyroidectomy History of back surgery Hx of BKA S/P bilateral foot surgery Family History Family History Father Heart failure Mother Cerebrovascular accident Sibling Kidney failure Social History Social History Smoking packs per day: 1 Smoking cigarettes per day: 20.0 Years smoked: 50 Smoking pack-years: 50.00 Smoking status: Current every day smoker Tobacco type: pipe Second hand tobacco smoke exposure: No Alcohol intake: former Substance use: former Gender identity (if verbalized by the patient): Male Spiritual care concerns: No Exam Const: General: cooperative and no acute distress Nutritional Appearance: thin Orientation/consciousness: patient oriented x3 Limitations: no limitations HENMT: Head: normal to inspection, normocephalic and atraumatic Ears: hearing grossly normal bilaterally, external ears normal, TM's normal bilaterally and EAC's normal General nose exam: Normal external nose present and Normal nares present Face and sinus: normal facial exam and sinuses nontender Mouth: Yes Normal oral and palatal mucosa present, Yes lip normal, Yes oropharynx normal and Yes moist mucous membranes Throat: posterior oropharynx normal Eyes: General: appearance normal, both eyes and all related structures Periorbital: periorbital findings normal Eyelids: eyelids normal Conjunctivae: conjunctivae normal Sclera: sclerae normal Cornea: corneas normal Pupils: Equal, round and reactive pupils present EOM: EOMs intact bilaterally Neck: Neck: normal visual inspection, full ROM, no lymphadenopathy, no meningeal signs and trachea midline Chest: Chest palpation & inspection: normal inspection of the chest and normal palpation of entire chest wall Resp: Effort & Inspection: normal respiratory effort and able to speak in complete sentences Auscultation: clear to auscultation bilaterally
[2021-05-20] MEDS: SODIUM CHLORIDE 0.9% IV 500 ML 999 ML IV CONT (01:03)
[2021-05-20 01:04] LABS: Basophils Absolute Auto 0.03 K/mm3 (0.00-0.10); Basophils Percent Auto 0.6 % (0.0-1.0); Eosinophils Absolute Auto 0.16 K/mm3 (0.02-0.50); Eosinophils Percent Auto 3.3 % (1.0-6.0); Hematocrit 34.5 % (37.0-46.0); Hemoglobin 10.8 g/dL (12.4-15.3); Immature Granulocyte Absolute 0.02 K/mm3 (0.00-0.00); Immature Granulocyte Percent A 0.4 % (0.0-0.0); Lymphocytes Absolute Auto 0.46 K/mm3 (1.10-4.50); Lymphocytes Percent Auto 9.5 % (18.0-42.0); Mean Corpuscular HGB Conc 31.3 g/dL (32.0-36.0); Mean Corpuscular Hemoglobin 25.8 pg (27.0-31.0); Mean Corpuscular Volume 82.5 fL (78.0-102.0); Mean Platelet Volume 9.8 fl (8.7-11.0); Monocytes Absolute Auto 0.49 K/mm3 (0.10-0.90); Monocytes Percent Auto 10.2 % (2.0-11.0); Neutrophils Absolute Auto 3.7 K/mm3 (1.7-7.2); Platelet Count Result 208 K/mm3 (150-420); Red Blood Count 4.18 M/mm3 (4.70-6.10); White Blood Count 4.8 K/mm3 (4.8-10.8)
[2021-05-20 01:05] LABS: Add Urine Microscopic? NO; Appearance Urine Clear (Clear); Bilirubin Urine Negative (Negative); Blood Urine Negative (Negative); Color Urine Light Yellow (Yellow); Glucose Urine UA Negative (Negative); Ketones Urine Negative (Negative); Leukocyte Esterase Ur Negative (Negative); Nitrate Urine Negative (Negative); Protein Urine Negative (Negative); Urobilinogen Urine 0.2 mg/dL (0.2-1.0); pH Urine 6.5 (5.0-8.0)
[2021-05-20 01:23] LABS: Alanine Aminotransferase 16 U/L (16-63); Albumin Level 3.1 g/dL (3.4-5.0); Alkaline Phosphatase 84 U/L (46-116); Anion Gap 11 mmol/L (8-16); Aspartate Amino Transferase 12 U/L (15-37); Bilirubin,Total 0.4 mg/dL (0.00-1.00); Blood Urea Nitrogen 17 mg/dL (7-18); Calcium 8.9 mg/dL (8.5-10.1); Carbon Dioxide 25 mmol/L (21-32); Chloride 98 mmol/L (98-108); Estimated CRCL calculation 50 ml/min; Estimated Glomerular Filt Rate 56; Glucose 171 mg/dL (70-99); Osmolality Calculated 283 mOsm/kg (285-295); Potassium 4.3 mmol/L (3.5-5.1); Sodium 134 mmol/L (136-145); Total Protein 7.1 g/dL (6.4-8.2)
[2021-05-20 02:33] VITALS: BP 120/56; PULSE 72; RESP 18; TEMP 36.2; O2SAT 100
== END 2021-05-20 02:35 | disposition home or self-care (01) ==
PROVIDERS: Emergency Provider Emergency Medicine; PCP Internal Medicine
DX: T50.901A Poisoning by unspecified drugs, medicaments and biological substances, accidental (unintentional), initial encounter (principal); I48.91 Unspecified atrial fibrillation; E11.9 Type 2 diabetes mellitus without complications; E03.9 Hypothyroidism, unspecified; I10 Essential (primary) hypertension; F17.200 Nicotine dependence, unspecified, uncomplicated
CPT/HCPCS: 36415; 80053; 81003; 85025; 96360; 96361; 99283; J7040

== ENCOUNTER 2021-06-24 09:37 | Outpatient (CLI) | payer MEDICARE, SELFPAY ==
[2021-06-24 09:52] LABS: Basophils Absolute Auto 0.02 K/mm3 (0.00-0.10); Basophils Percent Auto 0.5 % (0.0-1.0); Eosinophils Absolute Auto 0.12 K/mm3 (0.02-0.50); Hematocrit 28.5 % (37.0-46.0); Hemoglobin 8.5 g/dL (12.4-15.3); Immature Granulocyte Absolute 0.02 K/mm3 (0.00-0.00); Immature Granulocyte Percent A 0.5 % (0.0-0.0); Lymphocytes Absolute Auto 0.27 K/mm3 (1.10-4.50); Lymphocytes Percent Auto 6.7 % (18.0-42.0); Mean Corpuscular HGB Conc 29.8 g/dL (32.0-36.0); Mean Corpuscular Hemoglobin 24.4 pg (27.0-31.0); Mean Corpuscular Volume 81.9 fL (78.0-102.0); Mean Platelet Volume 9.4 fl (8.7-11.0); Monocytes Absolute Auto 0.44 K/mm3 (0.10-0.90); Monocytes Percent Auto 10.9 % (2.0-11.0); Neutrophils Absolute Auto 3.2 K/mm3 (1.7-7.2); Neutrophils Percent Auto 78.4 % (50.0-70.0); Platelet Count Result 193 K/mm3 (150-420); Red Blood Count 3.48 M/mm3 (4.70-6.10); Red Cell Distribution Width 15.7 % (11.6-14.4)
[2021-06-24 10:04] LABS: Add Urine Microscopic? YES; Appearance Urine Clear (Clear); Bilirubin Urine Negative (Negative); Blood Urine Negative (Negative); Color Urine Yellow (Yellow); Glucose Urine UA Negative (Negative); Ketones Urine Negative (Negative); Leukocyte Esterase Ur Negative (Negative); Nitrate Urine Negative (Negative); Protein Urine Trace (Negative)
[2021-06-24 10:11] LABS: Bacteria Urine Trace /hpf; Hemoglobin A1C 7.1 % (<5.7); RBC Urine None seen /hpf (0-2); Squamous Epithelial Cell Urine Few /hpf (Few); WBC Urine None seen /hpf (0-3)
[2021-06-24 10:52] LABS: Alanine Aminotransferase 10 U/L (16-63); Albumin Level 3.1 g/dL (3.4-5.0); Alkaline Phosphatase 104 U/L (46-116); Anion Gap 9 mmol/L (8-16); Aspartate Amino Transferase 11 U/L (15-37); Bilirubin,Total 0.4 mg/dL (0.00-1.00); Blood Urea Nitrogen 18 mg/dL (7-18); Carbon Dioxide 25 mmol/L (21-32); Chloride 98 mmol/L (98-108); Cholesterol 93 mg/dL (0-200); Estimated Glomerular Filt Rate 50; Ferritin 46 ng/mL (26-388); Free T4 Free Thyroxine 1.58 ng/dL (0.76-1.46); Glucose 151 mg/dL (70-99); HDL Direct 24 mg/dL (40-60); Iron 22 ug/dL (65-175); LDL Cholesterol Calculated 59 mg/dL (<130); NT Pro B Type Natriuretic Pept 6813 pg/mL (0-450); Osmolality Calculated 278 mOsm/kg (285-295); Potassium 4.1 mmol/L (3.5-5.1); Sodium 132 mmol/L (136-145); Thyroid Stimulating Hormone 2.52 uIU/mL (0.36-3.74); Total Protein 6.6 g/dL (6.4-8.2); Triglycerides 51 mg/dL (0-150); Uric Acid 5.5 mg/dL (3.5-7.2)
[2021-06-27 19:06] LABS: Testosterone Free 127.1 pg/mL (30.0-135.0); Testosterone Total 743 ng/dL (250-1100)
== END 2021-06-24 09:38 | disposition home or self-care (01) ==
LOC: CHSLAB 09:39
PROVIDERS: PCP Internal Medicine; Visit Provider Internal Medicine
DX: E03.4 Atrophy of thyroid (acquired) (principal); I50.1 Left ventricular failure, unspecified; N18.4 Chronic kidney disease, stage 4 (severe); E11.51 Type 2 diabetes mellitus with diabetic peripheral angiopathy without gangrene; E29.1 Testicular hypofunction; D50.9 Iron deficiency anemia, unspecified
CPT/HCPCS: 36415; 80053; 80061; 81001; 82728; 83036; 83540; 83880; 84402; 84403; 84439; 84443; 84481; 84550; 85025

== ENCOUNTER 2021-06-27 22:46 | Inpatient (IN) | payer MEDICARE, SELFPAY ==
--- NOTE | ~2021-06-27 | CT_ITS ---
EXAMINATION: CT brain wo con DATE: 06/27/2021 23:44 INDICATION: Confusion. Metastatic cancer. TECHNIQUE: Computed tomography (CT) of the head was performed without intravenous contrast. Sagittal and coronal reconstructions were performed. The mA was adjusted according to patient size. Iterative reconstruction technique was employed. The dose-length product was 681.00 mGy-cm. COMPARISON: head CT dated 03/18/2021 FINDINGS: No acute intracranial hemorrhage, acute infarction or abnormal extra axial fluid collection. Small ol d lacunar infarcts in the left cerebellar hemisphere and in a gyrus of the right frontal lobe. There is mild scattered white matter hypoattenuation consistent with chronic small vessel ischemic disease. Symmetric prominence of the sulci and ventricles consistent with moderate age-appropriate diffuse ce rebral volume loss. No mass/mass effect. Changes of bilateral intraocular lens replacement. The orbit s, paranasal sinuses and mastoid air cells are normal. IMPRESSION: 1. No acute intracranial process. 2. Small old lacunar infarcts at the left cerebellar hemisphere and in the right frontal lobe. 3. Age-related changes including moderate diffuse volume loss and mild scattered white matter hypoatt enuation consistent with chronic small vessel ischemic disease. Reviewed, dictated and finalized at location A. IMPRESSION: 1. No acute intracranial process. 2. Small old lacunar infarcts at the left cerebellar hemisphere and in the righ t frontal lobe. 3. Age-related changes including moderate diffuse volume loss and mild scattere d white matter hypoattenuation consistent with chronic small vessel ischemic di sease.
--- NOTE | ~2021-06-27 | XR_ITS ---
EXAMINATION: XR chest 1V portable DATE: 06/27/2021 23:13 INDICATION: Shortness of breath. Metastatic cancer and COPD. TECHNIQUE: frontal view of the chest was obtained. COMPARISON: Chest radiograph dated 04/17/[address] dated 03/18/2021 FINDINGS: Right opacities in the right mid and lower lung zones consistent with persistent moderate-sized pleur al effusion and associated atelectasis and/or pneumonia. Hazy airspace opacity throughout the right u pper lung zone extending to the minor fissure which could represent either fluid tracking along the f issure or atelectasis in the right upper lobe. Persistent right hilar mass likely related to known tr eated bronchial neuroendocrine carcinoma. Calcified right hilar lymph node consistent with old granul omatous disease. Subtle opacity medial left upper lung zone which on prior CT appears to correspond t o a band of prior mediastinal radiation fibrosis. No pneumothorax or left-sided pleural effusion. Car diomegaly. Three lead pacemaker/AICD seen with leads projecting over the expected locations of the ri ght atrial appendage, apex of the right ventricle and overlying the left ventricle likely having angela ersed the coronary sinus. Suture anchor at the right humeral head likely related to prior rotator cuf f repair. IMPRESSION: 1. Opacities throughout the right hemithorax consistent with moderate sized right pleural effusion wi th associated atelectasis and/or pneumonia. 2. Persistent right hilar mass consistent with treated malignancy. 3. Subtle opacity in the medial left upper lung zone which could correspond to paramediastinal radiat ion fibrosis. 4. Cardiomegaly. Reviewed, dictated and finalized at location A. IMPRESSION: 1. Opacities throughout the right hemithorax consistent with moderate sized rig ht pleural effusion with associated atelectasis and/or pneumonia. 2. Persistent right hilar mass consistent with treated malignancy. 3. Subtle opacity in the medial left upper lung zone which could correspond to paramediastinal radiation fibrosis. 4. Cardiomegaly.
[2021-06-27 22:50] VITALS: BP 104/62; PULSE 74; RESP 18; TEMP 36.1; O2SAT 91
--- NOTE | 2021-06-27 22:55 | ED.SOB ---
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 -- severe anxiety attack.The patient took 2 mg of Ativan -- When the EMS arrived he was noted to be smoking a cigarette. EMS noted him to have broad complex tachycardia with a heart rate of 200 for which he received amiodarone 300 mg and was shocked 2 times with conversion to a paced rhythm. In addition he received ketamine. -- altered mental status with decreased responsiveness which improved over the next half an hour. The patient was then brought to the ER Where he was noted to have a paced rhythm with a stable blood pressure and oxygenation. He followed verbal commands and moved all his limbs. The patient is unable to voice his complaints. Patient has had multiple such prior episodes of acute shortness of breath. MD elicited complaint: shortness of breath Pertinent past history: COPD, pneumonia and other ( Metastatic neuroendocrine tumor with extensive right lung infiltrate and bilateral pleural effusions.) Onset (ago): hour(s) ( He developed acute shortness of breath 1 hour ago.) Context: anxiety Known history of: COPD and recurrent pneumonia Associated symptoms: cough Treatment prior to arrival: other ( Shock, amiodarone, ketamine) Related Data Home Medications Medication Instructions Recorded Confirmed apixaban 5 mg tablet 5 mg PO BID 02/15/19 06/27/21 carvedilol 12.5 mg tablet 3.125 mg PO Q12H 02/15/19 06/27/21 levothyroxine 175 mcg tablet 150 mcg PO DAILY 02/15/19 06/27/21 Humalog U-100 Insulin 10 unit SUBCUT TID 02/20/19 06/27/21 Lantus U-100 Insulin 50 unit SUBCUT HS 02/20/19 06/27/21 lorazepam 1 mg PO DAILY 02/15/21 06/27/21 megestrol 40 mg PO DAILY 05/20/21 06/27/21 pantoprazole 40 mg PO DAILY 05/20/21 06/27/21 Allergies Allergy/AdvReac Type Severity Reaction Status Date / Time iohexol Allergy Intermediate PETECHAIE Verified 05/20/21 00:24 [From CONTRAST - CT, XRAY] Sulfa (Sulfonamide Allergy Unknown Hives Verified 02/15/21 06:11 Antibiotics) iv antibiotics unknown Allergy Intermediate Rash Uncoded 03/09/19 10:03 Review of Systems Review of Systems: the patient is very drowsy and is unable to answer questions appropriately PMFSH Past Medical History Medical History A-fib Acquired hypothyroidism Chronic renal failure Diabetes Heart attack History of thyroid cancer Hypertension Kidney stone Pacemaker Thyroid disease Surgical History Surgical History H/O inguinal hernia repair H/O thyroidectomy History of back surgery Hx of BKA S/P bilateral foot surgery Family History Family History Father Heart failure Mother Cerebrovascular accident Sibling Kidney failure Social History Social History Smoking packs per day: 1 Smoking cigarettes per day: 20.0 Years smoked: 50 Smoking pack-years: 50.00 Smoking status: Current every day smoker Tobacco type: pipe Second hand tobacco smoke exposure: No Alcohol intake: former Substance use: former Gender identity (if verbalized by the patient): Male Spiritual care concerns: No Exam Const:
--- NOTE | 2021-06-27 22:56 | ECG_ITS ---
Measurements Intervals [place] Rate: 70 P: [place]: 0 QRS: -87 QRSD: 193 T: 99 QT: 451 QTc: 487 Interpretive Statements ELECTRONIC VENTRICULAR PACEMAKER WITH INHIBITION PROBABLE UNDERLYING ATRIAL FIBRILLATION NO FURTHER TAPER TAKEN POSSIBLE COMPARED TO ECG 02/15/2021 05:44:10 NO SIGNIFICANT CHANGES Electronically Signed On 06-29-2021 12:17:49 CDT by Aftab Alvarado M.D.
[2021-06-27 23:00] VITALS: PULSE 74
[2021-06-27 23:09] LABS: Base Excess ABG -6.2 mmol/L (0-2); Device NON-REBREATHER MASK; HCO3 ABG 18.2 mmol/L (23-29); Modified Allen's Test Pass; Oxygen Content ABG 14.6 %vol (16.0-22.0); Oxygen Saturation ABG 99.4 % (95-97); Oxyhemoglobin 98.3 % (94-100); PCO2 ABG 31.7 mmHg (35-45); PO2 ABG 300.8 mmHg (75-85); Site Drawn LEFT RADIAL; pH ABG 7.38 (7.35-7.45)
[2021-06-27 23:10] VITALS: BP 104/62; PULSE 74
[2021-06-27] MEDS: AMIODARONE 360 MG/D5W 200 ML 360 MG/200 ML BAG 33.33 MG IV CONT (23:10)
[2021-06-27 23:15] VITALS: O2SAT 91
[2021-06-27 23:23] LABS: Basophils Absolute Auto 0.02 K/mm3 (0.00-0.10); Basophils Percent Auto 0.3 % (0.0-1.0); Eosinophils Absolute Auto 0.16 K/mm3 (0.02-0.50); Eosinophils Percent Auto 2.5 % (1.0-6.0); Hematocrit 30.3 % (37.0-46.0); Hemoglobin 8.8 g/dL (12.4-15.3); Immature Granulocyte Absolute 0.05 K/mm3 (0.00-0.00); Immature Granulocyte Percent A 0.8 % (0.0-0.0); Lymphocytes Absolute Auto 0.36 K/mm3 (1.10-4.50); Lymphocytes Percent Auto 5.6 % (18.0-42.0); Mean Corpuscular Hemoglobin 24.1 pg (27.0-31.0); Mean Platelet Volume 10.5 fl (8.7-11.0); Monocytes Absolute Auto 0.55 K/mm3 (0.10-0.90); Monocytes Percent Auto 8.5 % (2.0-11.0); Neutrophils Absolute Auto 5.3 K/mm3 (1.7-7.2); Neutrophils Percent Auto 82.3 % (50.0-70.0); Platelet Count Result 276 K/mm3 (150-420); Red Blood Count 3.65 M/mm3 (4.70-6.10); Red Cell Distribution Width 15.9 % (11.6-14.4); White Blood Count 6.5 K/mm3 (4.8-10.8)
--- NOTE | 2021-06-27 23:30 | PC.NURSE ---
Pt has slowly become more alert since arrival per EMS, he is able to answer questions in sentences at this time, noted paced rthym on monitor. VSS at this time.
[2021-06-27 23:44] LABS: Lactic Acid Reflex 2.6 mmol/L (0.4-2.0)
[2021-06-27 23:46] LABS: Alanine Aminotransferase 17 U/L (16-63); Alkaline Phosphatase 159 U/L (46-116); Ammonia 11 umol/L (11-32); Anion Gap 12 mmol/L (8-16); Aspartate Amino Transferase 33 U/L (15-37); Bilirubin,Total 0.6 mg/dL (0.00-1.00); Blood Urea Nitrogen 25 mg/dL (7-18); Calcium 8.2 mg/dL (8.5-10.1); Carbon Dioxide 21 mmol/L (21-32); Chloride 101 mmol/L (98-108); Estimated CRCL calculation 37 ml/min; Estimated Glomerular Filt Rate 38; Glucose 269 mg/dL (70-99); Lipase 110 U/L (73-393); NT Pro B Type Natriuretic Pept 12881 pg/mL (0-450); Osmolality Calculated 291 mOsm/kg (285-295); Potassium 4.4 mmol/L (3.5-5.1); Sodium 134 mmol/L (136-145); Thyroid Stimulating Hormone 5.95 uIU/mL (0.36-3.74); Total Protein 6.8 g/dL (6.4-8.2); Troponin I 42.6 ng/L (0.00-60.4)
[2021-06-27 23:50] VITALS: BP 119/65; PULSE 74; RESP 16; O2SAT 94
[2021-06-27] MEDS: IPRATROPIUM 0.5 MG/ALBUTEROL SULFATE 2.5 MG AMPUL.NEB 3 ML INHALATION (23:53)
[2021-06-27 23:57] VITALS: PULSE 70; RESP 18; O2SAT 99
[2021-06-28] VITALS (18 sets, daily range): BP systolic 115–171; BP diastolic 61–74; PULSE 70–95; RESP 18–26; TEMP 35.8–37.2; O2SAT 87–100; BMI 21.7
[2021-06-28] MEDS: FUROSEMIDE INJ 20 MG/2 ML VIAL IV PUSH (00:01)
[2021-06-28 00:27] LABS: SARS-CoV-2 Ag Negative (Negative)
[2021-06-28] MEDS: INSULIN HUMAN REGULAR (*BKC) 100 UNITS/ML SUB-Q (01:14)
--- NOTE | 2021-06-28 01:35 | PC.NURSE ---
Spoke to Vinny Kiran N.P to clarify orders
--- NOTE | 2021-06-28 01:50 | PC.NURSE ---
IV Amiodorone discontinued @ this time per Dr Stewart's orders.
--- NOTE | 2021-06-28 01:50 | PC.NURSE ---
Contacted MARTINA Bush, to clarify orders regarding pt's amiodarone drip. She advised that I call Dr. Monaco to see if he wants to transfer pt to a [facility] on the amiodarone drip or keep pt here with PO amiodarone.
--- NOTE | 2021-06-28 01:55 | PC.NURSE ---
Dr. Monaco here to see pt; Pt stated that he didnt want to be transferred to another facility and Dr. Monaco explained that he would have to be put on PO amiodarone which was less effective than the IV amiodarone and he explained all the risks associated with PO amiodarone. Pt still wanted to stay here over being transferred.
--- NOTE | 2021-06-28 02:00 | PC.NURSE ---
Contacted [facility] to clarify new amiodarone orders
--- NOTE | 2021-06-28 02:00 | ADMGEN ---
This patient, Tyson García, was admitted to 2nd Floor Room 208-2. Patient oriented to hospital policies and general routines including ID bracelet, bed and alarms, visiting hours, pain management, procedures, bathroom and other care routines, personal items, smoking policy, room service/diet, and visiting hours. Information on how to activate the Rapid Response Team has been discussed. Patient are encouraged to report perceived risks to care and to ask questions if they do not understand what they are told or what they should do.
--- NOTE | 2021-06-28 02:03 | PC.NURSE ---
Contacted Vinny Kiran NP, to clarify new orders.
[2021-06-28] MEDS: AMIODARONE HCL 200 MG TABLET 400 MG PO ×2 (02:12→09:55)
[2021-06-28 02:20] LABS: Reflex Lactic Acid Yes or No Add Lactic
--- NOTE | 2021-06-28 04:33 | PC.NURSE ---
Patient anxious/agitated and restless. Forceful coughing, trying to cough up secretions. SpO2-98% on room air. No distress noted. When patient stops to talk his respirations are non-labored. Patient asking for Ativan right away. Charge nurse notified.
--- NOTE | 2021-06-28 04:35 | PC.NURSE ---
Contacted Vinny Kiran NP, regarding pt's agitated and anxious behavior; New orders received and noted for Ativan 0.5 mg q 4 hrs, PRN.
[2021-06-28] MEDS: LORazepam INJ (*CRX) 2 MG/ML VIAL 0.5 MG IV PUSH (04:43)
--- NOTE | 2021-06-28 04:45 | PC.NURSE ---
Ativan given as ordered. Patient calming down just knowing he's getting the ativan.
--- NOTE | 2021-06-28 05:08 | PC.NURSE ---
Patient calmer and resting well.
--- NOTE | 2021-06-28 05:20 | PC.NURSE ---
Patient already anxious and agitated again. Attempts to calm patient fail.
[2021-06-28] MEDS: LEVOTHYROXINE SODIUM 50 MCG TABLET PO (05:33)
[2021-06-28] MEDS: LEVOTHYROXINE SODIUM 100 MCG TABLET PO (05:33)
--- NOTE | 2021-06-28 05:39 | PC.NURSE ---
Patient generation manager light every few minutes, whether wanting his oxygen level checked, wanting his temperature taken, wanting someone to stay in room with him. Patient given incentive spirometer with education on use but doesn't use it. Patient educated on drinking water to help thin secretions. All attempts to calm patient fail. Call light in reach.
[2021-06-28 07:09] LABS: Basophils Absolute Auto 0.04 K/mm3 (0.00-0.10); Basophils Percent Auto 0.4 % (0.0-1.0); Eosinophils Absolute Auto 0.03 K/mm3 (0.02-0.50); Eosinophils Percent Auto 0.3 % (1.0-6.0); Hematocrit 32.7 % (37.0-46.0); Hemoglobin 9.7 g/dL (12.4-15.3); Immature Granulocyte Absolute 0.05 K/mm3 (0.00-0.00); Immature Granulocyte Percent A 0.5 % (0.0-0.0); Lymphocytes Absolute Auto 0.44 K/mm3 (1.10-4.50); Lymphocytes Percent Auto 4.1 % (18.0-42.0); Mean Corpuscular HGB Conc 29.7 g/dL (32.0-36.0); Mean Corpuscular Hemoglobin 24.2 pg (27.0-31.0); Mean Corpuscular Volume 81.5 fL (78.0-102.0); Mean Platelet Volume 10.2 fl (8.7-11.0); Monocytes Absolute Auto 0.67 K/mm3 (0.10-0.90); Monocytes Percent Auto 6.2 % (2.0-11.0); Neutrophils Absolute Auto 9.5 K/mm3 (1.7-7.2); Neutrophils Percent Auto 88.5 % (50.0-70.0); Platelet Count Result 310 K/mm3 (150-420); Red Blood Count 4.01 M/mm3 (4.70-6.10); Red Cell Distribution Width 15.9 % (11.6-14.4); White Blood Count 10.8 K/mm3 (4.8-10.8)
[2021-06-28 07:20] LABS: Anion Gap 12 mmol/L (8-16); Blood Urea Nitrogen 30 mg/dL (7-18); Calcium 8.4 mg/dL (8.5-10.1); Carbon Dioxide 22 mmol/L (21-32); Chloride 101 mmol/L (98-108); Estimated CRCL calculation 33 ml/min; Estimated Glomerular Filt Rate 34; Glucose 164 mg/dL (70-99); Magnesium 1.7 mg/dL (1.8-2.4); Osmolality Calculated 290 mOsm/kg (285-295); Potassium 4.2 mmol/L (3.5-5.1); Sodium 135 mmol/L (136-145)
[2021-06-28 07:28] LABS: Lactic Acid 1.6 mmol/L (0.4-2.0)
[2021-06-28] MEDS: FUROSEMIDE INJ 100 MG/10 ML VIAL 80 MG IV PUSH (09:52)
[2021-06-28] MEDS: methylPREDNISolone SOD SUCC 125 MG VIAL IV PUSH (09:55)
[2021-06-28] MEDS: MAGNESIUM OXIDE 400 MG TABLET PO (09:56)
[2021-06-28] MEDS: LORazepam (*CRX) 1 MG TABLET PO ×3 (09:56→18:06)
[2021-06-28] MEDS: carvediloL 3.125 MG TABLET PO ×2 (09:57→18:06)
[2021-06-28] MEDS: MEGESTROL ACETATE (*CHEMO) 40 MG TABLET PO (09:57)
[2021-06-28] MEDS: APIXABAN 2.5 MG TABLET 5 MG PO ×2 (09:57→21:11)
[2021-06-28] MEDS: PANTOPRAZOLE 40 MG TABLET PO (09:57)
--- NOTE | 2021-06-28 11:51 | PM.IMHP ---
H&P: HPI History of Present Illness Date/Time: 06/28/21 11:51 this is a 81-year-old male who presented to our emergency department arrhythmia with palpitation and shortness of breath with chest pain. Patient has a past medical history of A. 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 According to patient while he was at home he started to develop severe shortness of breath with heart palpitations and chest pains. Prior to arrival to the ED, EMS was required to shock patient x2, he was given amiodarone 300 mg and given ketamine. Per notes when he arrived to our ED his blood pressure and oxygen was stable with a paced rhythm. While in the ED patient was placed on amiodarone drip which was later converted to p.o. amiodarone. Spoke with patient's personally he is a DNR and wants comfort measures only patient is opposed to hospice. Patient gets weekly thoracentesis. According to patient 2 L is usually removed, he gets that done at [facility]. Will request record from [facility].Patient is opposed to hospice because he believes he will not get his weekly thoracentesis. WBC 6.5 hemoglobin 8.8, hematocrit 30.3, platelets 376, ABG pH 7.38, CO2 31.7, O2 300.8, bicarb 18.2, sodium 134, potassium 4.4, BUN 25, creatinine 1.73, glucose 269, lactic acid 2.6, liver function test within normal limits ammonia level 11 troponin 42.6 BMP 12,881 TSH 5.95 Covid negative, chest x-ray does indicate pneumonia with a moderate-sized right pleural effusion and a right lung mass EKG paced with a heart rate of 70. Patient notes that his plans are to discharge home with comfort measures,we will arrange for possible home health, care coordination will be consulted. I did speak with patient in his post anesthesia care unit nurse at bedside. Patient continues to have shortness of breath and anxiety. Spoke with patient's POA he will attempt to have the patient discharged on hospice versus with home health. Chief Complaint: Shortness of breath, chest pains Review of Systems Review of Systems: A 14 organ system Review of Systems was performed and pertinent positives included in the HPI, otherwise remaining ROS is negative. [facility] Past Medical History Medical History A-fib Acquired hypothyroidism Chronic renal failure Diabetes Heart attack History of thyroid cancer Hypertension Kidney stone Pacemaker Thyroid disease Surgical History Surgical History H/O inguinal hernia repair H/O thyroidectomy History of back surgery Hx of BKA S/P bilateral foot surgery Family History Family History Father Heart failure Mother Cerebrovascular accident Sibling Kidney failure Social History Social History Smoking packs per day: 1 Smoking cigarettes per day: 20.0 Years smoked: 50 Smoking pack-years: 50.00 Smoking status: Current every day smoker Tobacco type: pipe Second hand tobacco smoke exposure: No Alcohol intake: former Substance use: never Gender identity (if verbalized by the patient): Male Spiritual care concerns: No Meds Home Medications and Allergies Home Medications Medication Instructions Recorded Confirmed Type apixaban 5 mg tablet 5 mg PO BID 02/15/19 06/27/21 History carvedilol 12.5 mg tablet 3.125 mg PO Q12H 02/15/19 06/27/21 History levothyroxine 175 mcg tablet 150 mcg PO DAILY 02/15/19 06/27/21 History Humalog U-100 Insulin 10 unit SUBCUT TID 02/20/19 06/27/21 History Lantus U-100 Insulin 50 unit SUBCUT
[2021-06-28] MEDS: NICOTINE (*PBKC) 21 MG PATCH 1 PATCH TRANSDERM (13:12)
[2021-06-28] MEDS: IPRATROPIUM 0.5 MG/ALBUTEROL SULFATE 2.5 MG AMPUL.NEB 3 ML INHALATION ×2 (13:13→18:25)
[2021-06-28] MEDS: BENZONATATE 100 MG CAPSULE 200 MG PO ×2 (13:14→18:05)
[2021-06-28] MEDS: ALBUTEROL SULFATE (*SP) INHALER 2 PUFF INHALATION ×2 (15:00→19:39)
[2021-06-28] MEDS: methylPREDNISolone SOD SUCC 125 MG VIAL 80 MG IV PUSH ×2 (15:00→21:12)
[2021-06-28 18:28] LABS: Glucose Point of Care 204 mg/dl (65-105)
[2021-06-28] MEDS: traZODone HCL 25 MG TABLET PO (21:11)
[2021-06-28] MEDS: guaiFENesin 12 HR 600 MG TABCR 1200 MG PO (21:11)
[2021-06-28 21:40] LABS: Glucose Point of Care 205 mg/dl (65-105)
[2021-06-29] VITALS (11 sets, daily range): BP systolic 104–106; BP diastolic 55–64; PULSE 80–96; RESP 16–20; TEMP 37.2–37.3; O2SAT 94–98
[2021-06-29] MEDS: IPRATROPIUM 0.5 MG/ALBUTEROL SULFATE 2.5 MG AMPUL.NEB 3 ML INHALATION ×2 (00:11→05:45)
[2021-06-29 05:16] LABS: Hematocrit 26.9 % (37.0-46.0); Hemoglobin 8.2 g/dL (12.4-15.3); Mean Corpuscular HGB Conc 30.5 g/dL (32.0-36.0); Mean Corpuscular Hemoglobin 24.6 pg (27.0-31.0); Mean Corpuscular Volume 80.8 fL (78.0-102.0); Mean Platelet Volume 10.4 fl (8.7-11.0); Platelet Count Result 243 K/mm3 (150-420); Red Blood Count 3.33 M/mm3 (4.70-6.10); White Blood Count 6.3 K/mm3 (4.8-10.8)
[2021-06-29 05:29] LABS: Alanine Aminotransferase 15 U/L (16-63); Albumin Level 2.8 g/dL (3.4-5.0); Alkaline Phosphatase 130 U/L (46-116); Anion Gap 12 mmol/L (8-16); Aspartate Amino Transferase 15 U/L (15-37); Bilirubin,Total 0.6 mg/dL (0.00-1.00); Blood Urea Nitrogen 43 mg/dL (7-18); Calcium 8.5 mg/dL (8.5-10.1); Carbon Dioxide 22 mmol/L (21-32); Chloride 101 mmol/L (98-108); Estimated CRCL calculation 28 ml/min; Estimated Glomerular Filt Rate 28; Glucose 220 mg/dL (70-99); Osmolality Calculated 297 mOsm/kg (285-295); Potassium 4.3 mmol/L (3.5-5.1); Sodium 135 mmol/L (136-145); Total Protein 6.4 g/dL (6.4-8.2)
[2021-06-29] MEDS: methylPREDNISolone SOD SUCC 125 MG VIAL 80 MG IV PUSH (05:43)
[2021-06-29] MEDS: ALBUTEROL SULFATE (*SP) INHALER 2 PUFF INHALATION (05:43)
[2021-06-29] MEDS: LEVOTHYROXINE SODIUM 100 MCG TABLET PO (05:43)
[2021-06-29] MEDS: LEVOTHYROXINE SODIUM 50 MCG TABLET PO (05:43)
[2021-06-29 07:53] LABS: Glucose Point of Care 231 mg/dl (65-105)
--- NOTE | 2021-06-29 07:57 | PC.NURSE ---
Request for medical records regarding thoracentesis faxed to [facility]
[2021-06-29] MEDS: guaiFENesin 12 HR 600 MG TABCR 1200 MG PO (09:05)
[2021-06-29] MEDS: LORazepam (*CRX) 1 MG TABLET PO (09:05)
[2021-06-29] MEDS: AMIODARONE HCL 200 MG TABLET 400 MG PO (09:06)
[2021-06-29] MEDS: MEGESTROL ACETATE (*CHEMO) 40 MG TABLET PO (09:07)
[2021-06-29] MEDS: BENZONATATE 100 MG CAPSULE 200 MG PO (09:07)
[2021-06-29] MEDS: APIXABAN 2.5 MG TABLET 5 MG PO (09:07)
[2021-06-29] MEDS: carvediloL 3.125 MG TABLET PO (09:08)
[2021-06-29] MEDS: MAGNESIUM OXIDE 400 MG TABLET PO (09:08)
[2021-06-29] MEDS: PANTOPRAZOLE 40 MG TABLET PO (09:08)
[2021-06-29] MEDS: NICOTINE (*PBKC) 21 MG PATCH 1 PATCH TRANSDERM (09:10)
--- NOTE | 2021-06-29 09:34 | P.DS_ITS ---
DS: Admitting Diagnosis Discharge Date 06/29/2021 Admitting Diagnosis Arrhythmia, congestive heart failure, COPD, pneumonia DS: Discharge Diagnosis Discharge Diagnosis (1) Wide-complex tachycardia: Code(s): I47.2 - Ventricular tachycardia Status: Acute Assessment and Plan: * Resolved * Patient given amiodarone shocked 2 times by EMS * Patient placed on a amiodarone drip now on amiodarone p.o. * Patient refused transfer * Patient currently comfort measures * Amiodarone 400 mg daily continue * Patient leaving AGAINST MEDICAL ADVICE (2) Chronic anemia: Code(s): D64.9 - Anemia, unspecified Status: Acute Assessment and Plan: * Patient baseline hemoglobin 8-10 hematocrit 28-34, patient at baseline * No obvious bleeding noted * Will continue to monitor * Patient leaving AGAINST MEDICAL ADVICE (3) Supraclavicular lymphadenopathy: Code(s): R59.0 - Localized enlarged lymph nodes Status: Acute (4) History of thyroid cancer: Code(s): Z85.850 - Personal history of malignant neoplasm of thyroid Status: Acute (5) A-fib: Qualifiers: Atrial fibrillation type: longstanding persistent Qualified Code(s): I48.11 - Longstanding persistent atrial fibrillation Code(s): I48.91 - Unspecified atrial fibrillation Status: Acute Assessment and Plan: * Continue carvedilol and apixaban * Discontinue telemetry patient is now comfort measures * Patient leaving AGAINST MEDICAL ADVICE (6) Anticoagulant long-term use: Code(s): Z79.01 - intermediate teacher (current) use of anticoagulants Status: Acute (7) CHF exacerbation: Qualifiers: Heart failure type: unspecified Qualified Code(s): I50.9 - Heart failure, unspecified Code(s): I50.9 - Heart failure, unspecified Status: Acute Assessment and Plan: * Elevated BNP * Chest x-ray does not indicate pulmonary edema patient sounds wet * Patient received a total of Lasix 100mg, will cautiously administer Lasix due to patient worsening renal function * Patient is currently comfort measures * Patient leaving AGAINST MEDICAL ADVICE (8) COPD (chronic obstructive pulmonary disease): Qualifiers: COPD type: unspecified COPD Qualified Code(s): J44.9 - Chronic obstructive pulmonary disease, unspecified Code(s): J44.9 - Chronic obstructive pulmonary disease, unspecified Status: Acute Assessment and Plan: * Patient ABG pH 7.38, CO2 31.7, O2 300.8, bicarb 18.2 * Continue duo nebulizer with as needed albuterol and Symbicort with supplementary oxygen, Tessalon Perles and guaifenesin * Patient leaving AGAINST MEDICAL ADVICE * Home 2 evaluation completed patient will leave with a nebulizer and solution along with Symbicort Tessalon Perles guaifenesin and albuterol * Patient educated on not using oxygen while smoking (9) Acquired hypothyroidism: Code(s): E03.9 - Hypothyroidism, unspecified Status: Acute Assessment and Plan: * tsh 5.95 * Possibly due to noncompliance will let his primary care physician manage (10) Diabetes: Code(s): E11.9 - Type 2 diabetes mellitus without complications Status: Acute Assessment and Plan: * Blood sugar 164 * Continue home sliding scale with hypoglycemic protocol in [facility] (11) Pacemaker: Code(s): Z95.0 - Presence of cardiac pacemaker Status: Acute (12) Acute on chronic kidney failure: Qualifiers: Acute renal failure type: unspecified Chronic kidney disease stage: s
--- NOTE | 2021-06-29 09:34 | PM.DS ---
DS: Admitting Diagnosis Discharge Date 06/29/2021 Admitting Diagnosis Arrhythmia, congestive heart failure, COPD, pneumonia DS: Discharge Diagnosis Discharge Diagnosis (1) Wide-complex tachycardia: Code(s): I47.2 - Ventricular tachycardia Status: Acute Assessment and Plan: Resolved Patient given amiodarone shocked 2 times by EMS Patient placed on a amiodarone drip now on amiodarone p.o. Patient refused transfer Patient currently comfort measures Amiodarone 400 mg daily continue Patient leaving AGAINST MEDICAL ADVICE (2) Chronic anemia: Code(s): D64.9 - Anemia, unspecified Status: Acute Assessment and Plan: Patient baseline hemoglobin 8-10 hematocrit 28-34, patient at baseline No obvious bleeding noted Will continue to monitor Patient leaving AGAINST MEDICAL ADVICE (3) Supraclavicular lymphadenopathy: Code(s): R59.0 - Localized enlarged lymph nodes Status: Acute (4) History of thyroid cancer: Code(s): Z85.850 - Personal history of malignant neoplasm of thyroid Status: Acute (5) A-fib: Qualifiers: Atrial fibrillation type: longstanding persistent Qualified Code(s): I48.11 - Longstanding persistent atrial fibrillation Code(s): I48.91 - Unspecified atrial fibrillation Status: Acute Assessment and Plan: Continue carvedilol and apixaban Discontinue telemetry patient is now comfort measures Patient leaving AGAINST MEDICAL ADVICE (6) Anticoagulant long-term use: Code(s): Z79.01 - care home (current) use of anticoagulants Status: Acute (7) CHF exacerbation: Qualifiers: Heart failure type: unspecified Qualified Code(s): I50.9 - Heart failure, unspecified Code(s): I50.9 - Heart failure, unspecified Status: Acute Assessment and Plan: Elevated BNP Chest x-ray does not indicate pulmonary edema patient sounds wet Patient received a total of Lasix 100mg, will cautiously administer Lasix due to patient worsening renal function Patient is currently comfort measures Patient leaving AGAINST MEDICAL ADVICE (8) COPD (chronic obstructive pulmonary disease): Qualifiers: COPD type: unspecified COPD Qualified Code(s): J44.9 - Chronic obstructive pulmonary disease, unspecified Code(s): J44.9 - Chronic obstructive pulmonary disease, unspecified Status: Acute Assessment and Plan: Patient ABG pH 7.38, CO2 31.7, O2 300.8, bicarb 18.2 Continue duo nebulizer with as needed albuterol and Symbicort with supplementary oxygen, Tessalon Perles and guaifenesin Patient leaving AGAINST MEDICAL ADVICE Home 2 evaluation completed patient will leave with a nebulizer and solution along with Symbicort Tessalon Perles guaifenesin and albuterol Patient educated on not using oxygen while smoking (9) Acquired hypothyroidism: Code(s): E03.9 - Hypothyroidism, unspecified Status: Acute Assessment and Plan: tsh 5.95 Possibly due to noncompliance will let his primary care physician manage (10) Diabetes: Code(s): E11.9 - Type 2 diabetes mellitus without complications Status: Acute Assessment and Plan: Blood sugar 164 Continue home sliding scale with hypoglycemic protocol in [facility] (11) Pacemaker: Code(s): Z95.0 - Presence of cardiac pacemaker Status: Acute (12) Acute on chronic kidney failure: Qualifiers: Acute renal failure type: unspecified Chronic kidney disease stage: stage 3 (moderate) Chronic kidney disease stage 3 subtype: stage 3b (GFR 30-44) Qualified Code(s): N17.9 - Acute kidney failure, unspecified; N18.32 - Chronic kidney disease, stage 3b Code(s): N17.9 - Acute kidney failure, unspecified; N18.9 - Chronic kidney disease, unspecified Status: Acute Assessment and Plan: BUN/CR 25/1.73>30/1.90 Will cautiously administered diuretics baseline creatinine1.20-1.30. Renal
--- NOTE | 2021-06-29 10:00 | PC.NURSE ---
enciso removed, tolerated well, assisted to dress and place prosthetic on RLE
--- NOTE | 2021-06-29 10:14 | PC.NURSE ---
Assisted patient to ambulate for oxygen eval
--- NOTE | 2021-06-29 10:19 | HOMEO2EVAL ---
Evaluation was performed at [facility] Home Oxygen Evaluation RC: Home Oxygen (O2) Evaluation Start: 06/29/21 08:42 Freq: ONCE Status: Active Protocol: RPE Activity Type Activity Date Activity User E-Sign Co-Sign Detail Recorded Client Recorded Date Recorded By Document 06/29/21 09:45 CATHRYN [id number] 06/29/21 10:19 SJB Document 06/29/21 10:00 SJB [id number] 06/29/21 10:19 SJB 06/29/21 06/29/21 09:45 10:00 Home O2 Evaluation Test Phase Resting Exercise Oxygen Delivery Room Air Room Air Pulse Oximetry (90-100 %) 95 96 Pulse Rate (60-100 beats/min) 94 93 Activity Tolerance Fair Rating of Perceived Dyspnea (PD) +1 Mild, Noticeable to the Participant but Not to an Observer Rate of Perceived Exertion (PE) 13 Somewhat Hard Ambulation Distance (feet) 100 Ambulation Distance (meters) 30.47 Home Oxygen Evaluation Comments Will begin walk Pt walked on room air assisted pushing pushing wheelchair and wheelchair on assist of 2. room air approx 100ft using PLB. Sp02 remained at 96% and above during walk. HR withing normal range also. Treatment Charges O2 Evaluation - Inpatient
--- NOTE | 2021-06-29 11:00 | PC.NURSE ---
Patient is alert and oriented x4 and capable to make own decisions, significant other at the bedside and also agreeable with patient decision to leave against medical advise, patient states that he wishes to go home due to needing thoracentesis done tomorrow as scheduled in [place], understands the risks involved, did speak at length with hospitalist regarding decision to leave against medical advice, agreeable to sign appropriate paperwork for AMA.
--- NOTE | 2021-06-29 13:03 | PC.NURSE ---
Addendum entered by Mely Jackson RN 06/29/21 13:09: Patient left unit at 1130 am. Original Note: Patient chose to leave AMA. Patient was A/O x 4 and able to make his own decisions. LOBBY CONCIERGE advised patient of risks to leaving AMA and patient voiced understanding. Discharge instructions were given to patient and significant other. Both verbalized understanding. Patient was escorted to the lobby accompanied by writer editor and significant other in w/c. Patient was taken home by taxi service. Personal belongings sent home with patient.
--- NOTE | 2021-06-30 09:46 | PC.NURSE ---
Pt states he received and understood the discharge instructions. He states it was explained the best it's ever been .
== END 2021-06-29 11:30 | disposition left against medical advice (07) | DRG 308 ==
LOC: CHSED 06-28 00:24 → CHS2ND 06-28 12:12
PROVIDERS: Nurse Practitioner; Admitting Provider Internal Medicine; Emergency Provider Internal Medicine Critical Care Medicine; PCP Internal Medicine; Visit Provider Internal Medicine
DX: I47.2 Ventricular tachycardia (principal); J18.9 Pneumonia, unspecified organism; I13.0 Hypertensive heart and chronic kidney disease with heart failure and stage 1 through stage 4 chronic kidney disease, or unspecified chronic kidney disease; N17.9 Acute kidney failure, unspecified; C7A.8 Other malignant neuroendocrine tumors; C7B.8 Other secondary neuroendocrine tumors; J90 Pleural effusion, not elsewhere classified; I48.20 Chronic atrial fibrillation, unspecified; I50.9 Heart failure, unspecified; N18.32 Chronic kidney disease, stage 3b; J44.9 Chronic obstructive pulmonary disease, unspecified; D64.9 Anemia, unspecified; E11.22 Type 2 diabetes mellitus with diabetic chronic kidney disease; E89.0 Postprocedural hypothyroidism; R59.0 Localized enlarged lymph nodes; F17.210 Nicotine dependence, cigarettes, uncomplicated; I25.2 Old myocardial infarction; Z87.442 Personal history of urinary calculi; Z95.0 Presence of cardiac pacemaker; Z89.511 Acquired absence of right leg below knee; Z85.850 Personal history of malignant neoplasm of thyroid; Z79.01 Long term (current) use of anticoagulants
CPT/HCPCS: 36415; 36600; 70450; 71045; 80048; 80053; 82140; 82805; 82948; 83605; 83690; 83735; 83880; 84443; 84484; 85025; 85027; 87426; 93005; 94618; 94640; 96365; 96375; 99285; A9270; C9803; J0282; J0696; J1815; J1940; J2060; J2930

== ENCOUNTER 2021-07-16 10:55 | Outpatient (CLI) | payer MEDICARE, SELFPAY ==
[2021-07-16 11:14] LABS: Hematocrit 27.7 % (37.0-46.0); Hemoglobin 8.2 g/dL (12.4-15.3); Mean Corpuscular HGB Conc 29.6 g/dL (32.0-36.0); Mean Corpuscular Hemoglobin 23.3 pg (27.0-31.0); Mean Corpuscular Volume 78.7 fL (78.0-102.0); Mean Platelet Volume 11.1 fl (8.7-11.0); Platelet Count Result 182 K/mm3 (150-420); Red Blood Count 3.52 M/mm3 (4.70-6.10); Red Cell Distribution Width 16.7 % (11.6-14.4); White Blood Count 3.6 K/mm3 (4.8-10.8)
[2021-07-16 11:53] LABS: Band Neutrophils Percent 0 % (0-6); Basophils Percent Manual 0 % (0-1); Eosinophils Percent Manual 0 % (1-6); Lymphocytes Absolute Manual 0.36 K/mm3 (1.1-4.5); Lymphocytes Percent Manual 10 % (18-44); Monocytes Absolute Manual 0.21 K/mm3 (0.1-0.90); Monocytes Percent Manual 6 % (3-9); Neutrophils Absolute Manual 3.02 K/mm3 (1.3-6.7); Neutrophils Percent Manual 84 % (46-73); Platelet Estimate Adequate (Adequate); Total Cells Counted 100
[2021-07-16 13:06] LABS: Alanine Aminotransferase 12 U/L (16-63); Albumin Level 3.1 g/dL (3.4-5.0); Alkaline Phosphatase 104 U/L (46-116); Anion Gap 10 mmol/L (8-16); Aspartate Amino Transferase 11 U/L (15-37); Bilirubin,Total 0.4 mg/dL (0.00-1.00); Blood Urea Nitrogen 19 mg/dL (7-18); Calcium 8.1 mg/dL (8.5-10.1); Carbon Dioxide 24 mmol/L (21-32); Chloride 104 mmol/L (98-108); Estimated Glomerular Filt Rate 45; Ferritin 35 ng/mL (26-388); Glucose 199 mg/dL (70-99); Iron 258 ug/dL (65-175); NT Pro B Type Natriuretic Pept 6526 pg/mL (0-450); Osmolality Calculated 294 mOsm/kg (285-295); Potassium 4.6 mmol/L (3.5-5.1); Sodium 138 mmol/L (136-145); Total Protein 6.2 g/dL (6.4-8.2)
== END 2021-07-16 10:56 | disposition home or self-care (01) ==
LOC: CHSLAB 10:58
PROVIDERS: PCP Internal Medicine; Visit Provider Nurse Practitioner
DX: I50.9 Heart failure, unspecified (principal); D64.9 Anemia, unspecified; N18.4 Chronic kidney disease, stage 4 (severe)
CPT/HCPCS: 36415; 80053; 82728; 83540; 83880; 85025

== ENCOUNTER 2021-07-21 08:33 | Emergency (ER) | payer MEDICARE, SELFPAY ==
--- NOTE | ~2021-07-21 | US_ITS ---
EXAMINATION: US soft tissue chest DATE: 07/21/2021 10:05 INDICATION: Right pleural effusion with decreased output from the pleural drain. TECHNIQUE: Multiple grayscale ultrasound images of the chest were obtained. COMPARISON: Chest CT 03/18/2021, chest single view 07/21/2021 FINDINGS: There is a moderate-sized right pleural effusion with extensive loculations. A pleural drai n is noted. IMPRESSION: 1. Moderate-sized right pleural effusion with extensive loculations. Reviewed, dictated and finalized at location B.
--- NOTE | ~2021-07-21 | XR_ITS ---
EXAMINATION: XR chest 1V portable EXAM DATE: 07/21/2021 09:03 INDICATION: Chest pain,SOB. TECHNIQUE: Portable AP frontal chest x-ray was obtained. Comparison is made to prior examination from 06/27/2021. Correlation was made with chest CT report 03/18/2021. FINDINGS: Small to moderate pleural effusion. There is right mid and lower lung zone airspace disease , similar appearance last month. Please correlate with CT chest abdomen pelvis report from 03/18/2021 . Cardiomegaly. Pacemaker/AICD device. No pneumothorax. No left pleural effusion. There are bony dege nerative changes. IMPRESSION: 1. Small to moderate pleural effusion. 2. Chronic right-sided pleural effusion, airspace disease. Reviewed, dictated and finalized at location A.
[2021-07-21 08:33] VITALS: BP 159/82; PULSE 79; RESP 22; TEMP 36.5; O2SAT 100
[2021-07-21] MEDS: SODIUM CHLORIDE 0.9% IV 500 ML 999 ML IV CONT (08:33)
--- NOTE | 2021-07-21 08:40 | ECG_ITS ---
Measurements Intervals [place] Rate: 71 P: ME: 0 QRS: 152 QRSD: 209 T: 107 QT: 471 QTc: 512 Interpretive Statements ELECTRONIC VENTRICULAR PACEMAKER NO FURTHER INTERPRETATION POSSIBLE COMPARED TO ECG 06/27/2021 22:52:08 NO SIGNIFICANT CHANGES Electronically Signed On 07-21-2021 14:58:58 CDT by Aftab Alvarado M.D.
--- NOTE | 2021-07-21 09:01 | ED.ARRPALP ---
HPI - Arrhythmia/Palpitations General Chief Complaint: Arrhythmia/Palpitations <Otis Hernandez MD - Last Filed: 07/22/21 07:41> Stated Complaint: AMBULANCE <Otis Hernandez MD - Last Filed: 07/22/21 07:41> Time Seen by Provider: 07/21/21 08:35 <Otis Hernandez MD - Last Filed: 07/22/21 07:41> Source: patient, EMS and RN notes reviewed <Otis Hernandez MD - Last Filed: 07/22/21 07:41> Mode of arrival: EMS <Otis Hernandez MD - Last Filed: 07/22/21 07:41> Limitations: no limitations <Otis Hernandez MD - Last Filed: 07/22/21 07:41> History of Present Illness complaint: rapid heart beat, heart racing and palpitations <Otis Hernandez MD - Last Filed: 07/22/21 07:41> Onset (ago): hour(s) (1. pt had HR of 200/min and was cardioverted via EMS. mild SOB with no chest pain in the ED.) <Otis Hernandez MD - Last Filed: 07/22/21 07:41> Duration: now resolved <Otis Hernandez MD - Last Filed: 07/22/21 07:41> Severity: similar to previous episodes <Otis Hernandez MD - Last Filed: 07/22/21 07:41> Arrhythmia history: pacemaker and history of electrical cardioversion <Otis Hernandez MD - Last Filed: 07/22/21 07:41> Associated symptoms: shortness of breath and nausea <Otis Hernandez MD - Last Filed: 07/22/21 07:41> Related Data Home Medications: Home Medications Medication Instructions Recorded Confirmed apixaban 5 mg tablet 5 mg PO BID 02/15/19 07/21/21 carvedilol 12.5 mg tablet 3.125 mg PO Q12H 02/15/19 07/21/21 levothyroxine 175 mcg tablet 150 mcg PO DAILY 02/15/19 07/21/21 megestrol 40 mg PO DAILY 05/20/21 07/21/21 pantoprazole 40 mg PO DAILY 05/20/21 07/21/21 <Otis Hernandez MD - Last Filed: 07/22/21 07:41> Allergies/Adverse Reactions: Allergies Allergy/AdvReac Type Severity Reaction Status Date / Time iohexol Allergy Intermediate PETECHAIE Verified 05/20/21 00:24 [From CONTRAST - CT, XRAY] Sulfa (Sulfonamide Allergy Unknown Hives Verified 02/15/21 06:11 Antibiotics) iv antibiotics unknown Allergy Intermediate Rash Uncoded 03/09/19 10:03 <Otis Hernandez MD - Last Filed: 07/22/21 07:41> Review of Systems Review of Systems: All systems reviewed & are unremarkable except as noted in HPI and below <Otis Hernandez MD - Last Filed: 07/22/21 07:41> [facility] Past Medical History Medical History: Medical History A-fib Acquired hypothyroidism Chronic renal failure Diabetes Heart attack History of thyroid cancer Hypertension Kidney stone Pacemaker Thyroid disease <Otis Hernandez MD - Last Filed: 07/22/21 07:41> Surgical History Surgical History: Surgical History H/O inguinal hernia repair H/O thyroidectomy History of back surgery Hx of BKA S/P bilateral foot surgery <Otis Hernandez MD - Last Filed: 07/22/21 07:41> Family History Family History: Family History Father Heart failure Mother Cerebrovascular accident Sibling Kidney failure <Otis Hernandez MD - Last Filed: 07/22/21 07:41> Social History Social History: Social History Smoking packs per day: 1 Smoking cigarettes per day: 20.0 Years smoked: 50 Smoking pack-years: 50.00 Smoking status: Current every day smoker Tobacco type: pipe Second hand tobacco smoke exposure: No Alcohol intake: former Substance use: never Gender identity (if verbalized by the patient): Male Spiritual care concerns: No <Otis Hernandez MD - Last Filed: 07/22/21 07:41> Exam Const: General: no acute distress and alert <Otis Hernandez MD - Last Filed: 07/22/21 07:41> Nutritional Appearance: thin <Otis Hernandez MD - Last Filed: 07/04
[2021-07-21 09:02] LABS: Hematocrit 28.9 % (37.0-46.0); Hemoglobin 8.6 g/dL (12.4-15.3); Mean Corpuscular HGB Conc 29.8 g/dL (32.0-36.0); Mean Corpuscular Hemoglobin 24.3 pg (27.0-31.0); Mean Corpuscular Volume 81.6 fL (78.0-102.0); Mean Platelet Volume 10.8 fl (8.7-11.0); Platelet Count Result 202 K/mm3 (150-420); Red Blood Count 3.54 M/mm3 (4.70-6.10); Red Cell Distribution Width 18.7 % (11.6-14.4); White Blood Count 3.7 K/mm3 (4.8-10.8)
[2021-07-21 09:02] LABS: Add Urine Microscopic? YES; Appearance Urine Clear (Clear); Bilirubin Urine Negative (Negative); Blood Urine Negative (Negative); Color Urine Yellow (Yellow); Glucose Urine UA Negative (Negative); Ketones Urine Negative (Negative); Leukocyte Esterase Ur Negative (Negative); Nitrate Urine Negative (Negative); Protein Urine Trace (Negative); Specific Grav Ur 1.025 (1.010-1.020)
[2021-07-21 09:11] VITALS: BP 131/74; PULSE 70; RESP 10; O2SAT 100
[2021-07-21 09:15] LABS: Bacteria Urine Trace /hpf; RBC Urine None seen /hpf (0-2); Squamous Epithelial Cell Urine Moderate /hpf (Few); WBC Urine None seen /hpf (0-3)
[2021-07-21 09:20] LABS: Band Neutrophils Percent 1 % (0-6); Eosinophils Absolute Manual 0.18 K/mm3 (0.02-0.5); Eosinophils Percent Manual 5 % (1-6); Lymphocytes Absolute Manual 0.51 K/mm3 (1.1-4.5); Lymphocytes Percent Manual 14 % (18-44); Monocytes Absolute Manual 0.33 K/mm3 (0.1-0.90); Monocytes Percent Manual 9 % (3-9); Neutrophils Absolute Manual 2.66 K/mm3 (1.3-6.7); Neutrophils Percent Manual 71 % (46-73); Platelet Estimate Adequate (Adequate); Total Cells Counted 100
[2021-07-21 09:23] LABS: Lactic Acid Reflex 1.6 mmol/L (0.4-2.0)
[2021-07-21 09:24] VITALS: PULSE 70
[2021-07-21 09:30] LABS: Alanine Aminotransferase 8 U/L (16-63); Alkaline Phosphatase 110 U/L (46-116); Anion Gap 10 mmol/L (8-16); Aspartate Amino Transferase 12 U/L (15-37); Bilirubin,Total 0.6 mg/dL (0.00-1.00); Blood Urea Nitrogen 15 mg/dL (7-18); Calcium 8.1 mg/dL (8.5-10.1); Carbon Dioxide 24 mmol/L (21-32); Chloride 103 mmol/L (98-108); Estimated CRCL calculation 41 ml/min; Estimated Glomerular Filt Rate 46; Glucose 184 mg/dL (70-99); Osmolality Calculated 289 mOsm/kg (285-295); Potassium 4.5 mmol/L (3.5-5.1); Sodium 137 mmol/L (136-145); Total Protein 6.7 g/dL (6.4-8.2); Troponin I 19.9 ng/L (0.00-60.4)
[2021-07-21 09:36] LABS: Thyroid Stimulating Hormone 10.25 uIU/mL (0.36-3.74)
[2021-07-21 09:37] LABS: Base Excess ABG -3.6 mmol/L (0-2); HCO3 ABG 20.1 mmol/L (23-29); Oxygen Content ABG 12.2 %vol (16.0-22.0); Oxyhemoglobin 95.3 % (94-100); PCO2 ABG 31.1 mmHg (35-45); PO2 ABG 101.5 mmHg (75-85); pH ABG 7.43 (7.35-7.45)
[2021-07-21 09:38] LABS: Device NASAL CANNULA; Modified Allen's Test Pass; Site Drawn RIGHT RADIAL
--- NOTE | 2021-07-21 09:48 | PC.NURSE ---
pt has right lateral lower chest drainage tube in place. pt states he draws fluid off of his lungs through this tube daily. states the fluid output decreased yesterday. states he usually pulls 500-600mls each time et yesterday he only pulled 100mls. states his oncologist, dr lopez, wants an ULS of same to check for placement. erp informed et ULS ordered
[2021-07-21 10:00] VITALS: PULSE 70
[2021-07-21 10:57] VITALS: BP 131/70; PULSE 71; RESP 18; TEMP 36.8; O2SAT 98
== END 2021-07-21 11:17 | disposition left against medical advice (07) ==
PROVIDERS: Emergency Medicine; Emergency Provider Emergency Medicine; PCP Internal Medicine
DX: I47.2 Ventricular tachycardia (principal); C34.90 Malignant neoplasm of unspecified part of unspecified bronchus or lung; I48.91 Unspecified atrial fibrillation; E03.9 Hypothyroidism, unspecified; E11.9 Type 2 diabetes mellitus without complications; I10 Essential (primary) hypertension; F17.200 Nicotine dependence, unspecified, uncomplicated
CPT/HCPCS: 36415; 36600; 71045; 76604; 80053; 81001; 82805; 83605; 84443; 84484; 85025; 93005; 96360; 99284; J7040

== ENCOUNTER 2021-07-25 15:40 | Inpatient (IN) | payer MEDICARE, SELFPAY ==
[2021-07-25] VITALS (7 sets, daily range): BP systolic 70–91; BP diastolic 40–67; PULSE 72–88; RESP 18–22; TEMP 35.9–36.6; O2SAT 99–100; BMI 21.4
--- NOTE | ~2021-07-25 | XR_ITS ---
EXAMINATION: XR chest 1V portable Exam Date/Time: 07/25/2021 16:20 CDT CLINICAL HISTORY: WEAKNESS/HX OF LUNG CANCER Comparison: 07/21/2021. RESULT: Lines, tubes, and devices: Left chest pacer with intact leads. Right shoulder soft tissue anchor. Up per abdominal vascular calcifications. Lungs and pleura: Stable right mid and lower lung opacities. Stable right lateral costophrenic angle blunting. Cardiomediastinal silhouette: Stable cardiomediastinal silhouette. Other: No acute osseous or upper abdominal finding. IMPRESSION: Stable small right pleural effusion and right lower lung opacities. No acute cardiopulmonary process. Reviewed, dictated and finalized at location K. IMPRESSION: Stable small right pleural effusion and right lower lung opacities. No acute ca rdiopulmonary process.
--- NOTE | 2021-07-25 16:08 | ED.WEAKNESS ---
HPI - Weakness General Chief complaint: Unspecified Stated complaint: pain/weakness Time Seen by Provider: 07/25/21 16:08 Source: patient History of Present Illness HPI Narrative: 81-year-old male, smoker history tumor chronic mediastinal lymphadenopathy supraclavicular lymphadenopathy right mass right lung atelectasis, bilateral effusions, thyroid cancer status post thyroidectomy with hypothyroidism, CVA with left cerebellar infarct, peripheral vascular disease status post right below-knee amputation, renal failure on peritoneal dialysis was brought into the ER via EMS for -- generalized weakness -- blood pressure of 70/50 -- Three episodes of vomiting with nausea this morning. No abdominal pain. No diarrhea. the patient had PD exchange done this morning and had 2 L drain out. Does not remember how much he put into his peritoneal cavity. The patient was seen on 04/22/2021 for palpitation and subsequently signed out AMA the patient was admitted on 06/27/2021 for ventricular tachycardia status post ICD shock. Patient signed out AMA after 2 days. MD Complaint: generalized weakness Onset (ago): unknown Location: generalized Severity: mild Relieving factors: none Exacerbating factors: none Associated symptoms: nausea/vomiting Related Data Home Medications Medication Instructions Recorded Confirmed apixaban 5 mg tablet 5 mg PO BID 02/15/19 07/25/21 carvedilol 12.5 mg tablet 3.125 mg PO Q12H 02/15/19 07/25/21 levothyroxine 175 mcg tablet 150 mcg PO DAILY 02/15/19 07/25/21 megestrol 40 mg PO DAILY 05/20/21 07/25/21 pantoprazole 40 mg PO DAILY 05/20/21 07/25/21 Allergies Allergy/AdvReac Type Severity Reaction Status Date / Time iohexol Allergy Intermediate PETECHAIE Verified 05/20/21 00:24 [From CONTRAST - CT, XRAY] Sulfa (Sulfonamide Allergy Unknown Hives Verified 02/15/21 06:11 Antibiotics) iv antibiotics unknown Allergy Intermediate Rash Uncoded 03/09/19 10:03 Review of Systems Review of Systems: All systems reviewed & are unremarkable except as noted in HPI and below Constitutional: Constitutional: Reports as per HPI, Reports no additional constitutional complaints and Reports weakness Eyes: Eyes: Reports as per HPI and Reports no additional eye complaints ENT: Reports system reviewed and no additional complaints, except as documented and Reports as per HPI Comments: Dry mucous membranes. Cardiovascular: Cardiovascular: Reports as per HPI and Reports no additional cardiovascular complaints Respiratory: Respiratory: Reports as per HPI and Reports no additional respiratory complaints Gastrointestinal: Gastrointestinal: Reports as per HPI, Reports no additional gastrointestinal complaints, Reports nausea and Reports vomiting Genitourinary: Comments: Decreased urine output. The patient has a right flank peritoneal dialysis catheter. Musculoskeletal: Musculoskeletal: Reports no additional musculoskeletal complaints Comments: Right below-knee amputation left leg is swollen. He has contusion and skin break of his left valadez Integumentary/Breasts: Skin/Breast: Reports system reviewed and no additional complaints, except as docu Neurologic: Reports system reviewed and no additional complaints, except as documented and Reports as per HPI Psychiatric: Psychiatric: Reports no additional psychiatric complaints and Reports as per HPI Endocrine: Endocrine: Reports no additional endocrine complaints and Reports as per HPI Hematologic/Lymphatic: Hematologic/Lymphatic: Reports no additional hematologic/lymphatic complaints and Reports as per HPI Allergic/Immunologic: Allergic/Immunologic: Reports no additional allergic/immunologic complaints and Reports as per HPI [facility] Past Medical History Medical History A-fib Acquired hypothyroidism Chronic renal failure Diabetes Heart attack History of thyroid cancer Hypertension Kidney stone Pacemaker
--- NOTE | 2021-07-25 16:18 | ECG_ITS ---
Measurements Intervals [place] Rate: 78 P: TX: 0 QRS: 142 QRSD: 160 T: -70 QT: 460 QTc: 524 Interpretive Statements ATRIAL FIBRILLATION WITH ELECTRONIC VENTRICULAR DEMAND PACEMAKER WITH APPROPRIATE SENSING AND CAPTURE RIGHT AXIS DEVIATION [QRS AXIS > 100] RIGHT BUNDLE BRANCH BLOCK [120+ ms QRS DURATION, UPRIGHT V1, 40+ ms S IN I/aVL/V4/V5/V6] COMPARED WITH 07/21/2021: MORE INTRINSIC COMPLEXES ARE SEEN COMPARED TO PACED COMPLEXES. RIGHT BUNDLE BRANCH BLOCK CAN THEREFORE BE SEEN Electronically Signed On 07-26-2021 8:14:07 CDT by Christos Stout M.D.
[2021-07-25] MEDS: SODIUM CHLORIDE 0.9% IV 500 ML 999 ML IV CONT (16:40)
[2021-07-25 16:59] LABS: Eosinophils Absolute Auto 0.01 K/mm3 (0.02-0.50); Eosinophils Percent Auto 0.2 % (1.0-6.0); Hematocrit 25.6 % (37.0-46.0); Hemoglobin 7.6 g/dL (12.4-15.3); Immature Granulocyte Absolute 0.02 K/mm3 (0.00-0.00); Immature Granulocyte Percent A 0.4 % (0.0-0.0); Lymphocytes Absolute Auto 0.21 K/mm3 (1.10-4.50); Lymphocytes Percent Auto 3.9 % (18.0-42.0); Mean Corpuscular HGB Conc 29.7 g/dL (32.0-36.0); Mean Corpuscular Hemoglobin 24.2 pg (27.0-31.0); Mean Corpuscular Volume 81.5 fL (78.0-102.0); Mean Platelet Volume 12.2 fl (8.7-11.0); Monocytes Absolute Auto 0.65 K/mm3 (0.10-0.90); Monocytes Percent Auto 11.9 % (2.0-11.0); Neutrophils Absolute Auto 4.6 K/mm3 (1.7-7.2); Neutrophils Percent Auto 83.6 % (50.0-70.0); Platelet Count Result 165 K/mm3 (150-420); Red Blood Count 3.14 M/mm3 (4.70-6.10); Red Cell Distribution Width 21.2 % (11.6-14.4); White Blood Count 5.5 K/mm3 (4.8-10.8)
[2021-07-25 17:10] LABS: INR 1.4; Partial Thromboplastin Time 39.2 SEC (23.90-30.70)
[2021-07-25 17:16] LABS: Lactic Acid Reflex 1.9 mmol/L (0.4-2.0); Lipase 14 U/L (73-393); Magnesium 1.5 mg/dL (1.8-2.4); Troponin I 32.2 ng/L (0.00-60.4); Uric Acid 7.7 mg/dL (3.5-7.2)
[2021-07-25 17:17] LABS: Alanine Aminotransferase 7 U/L (16-63); Albumin Level 2.3 g/dL (3.4-5.0); Alkaline Phosphatase 79 U/L (46-116); Anion Gap 11 mmol/L (8-16); Aspartate Amino Transferase 13 U/L (15-37); Bilirubin,Total 1.5 mg/dL (0.00-1.00); Blood Urea Nitrogen 33 mg/dL (7-18); Calcium 7.8 mg/dL (8.5-10.1); Carbon Dioxide 22 mmol/L (21-32); Chloride 103 mmol/L (98-108); Estimated CRCL calculation 23 ml/min; Estimated Glomerular Filt Rate 22; Glucose 186 mg/dL (70-99); NT Pro B Type Natriuretic Pept 16867 pg/mL (0-450); Osmolality Calculated 294 mOsm/kg (285-295); Sodium 136 mmol/L (136-145); Total Protein 5.6 g/dL (6.4-8.2)
[2021-07-25] MEDS: LACTATED RINGERS 1,000 ML 999 ML IV CONT (17:39)
--- NOTE | 2021-07-25 18:34 | PC.NURSE ---
BP remains low even p giving fluids as per order. Pt is adamently refusing transfer stating he will only be admitted here or he will go home. Pt is DNR and only wants comfort measures. Call placed to [facility] by Dr Monaco.
--- NOTE | 2021-07-25 18:53 | PC.NURSE ---
Timothy MACK returned call, orders for Dr Monaco to admit received, call placed to floor for bed assignment.
--- NOTE | 2021-07-25 19:01 | PC.NURSE ---
Pt to go to Rm 205 for admit.
--- NOTE | 2021-07-25 19:57 | ADMGEN ---
This patient, Tyson García, was admitted to 2nd Floor Room 205-1. Patient/family oriented to hospital policies and general routines including ID bracelet, bed and alarms, visiting hours, pain management, procedures, bathroom and other care routines, personal items, smoking policy, room service/diet, and visiting hours. Information on how to activate the Rapid Response Team has been discussed. Patient/Family are encouraged to report perceived risks to care and to ask questions if they do not understand what they are told or what they should do.
[2021-07-25 21:22] LABS: Glucose Point of Care 198 mg/dl (65-105)
[2021-07-26] VITALS: BP 90/53; RESP 20; TEMP 37.1
--- NOTE | 2021-07-26 02:50 | PC.NURSE ---
Pt had a moderate sized bm consisting of dark brown stool. Pt noticed that his gown appeared to be wet from his peritoneal site located on his R upper abdomen dressing. Upon inspection the dressing had come off entirely. A new dressing using 2 Tegaderm and ABD pads was applied per instruction from how pt applies it at home. The first Tegaderm dressing covered the site itself then the ABD pad and 2nd Tegaderm dressing was placed over the external tubing which was looped per pt instruction. Dressing was then reenforced with paper tape since pt has thin skin. A new gown was placed onto the pt and the call light was placed within reach. Bed placed in lowest position;side railsx3; night light on for pt safety.
[2021-07-26 05:03] LABS: Hematocrit 28.8 % (37.0-46.0); Hemoglobin 8.5 g/dL (12.4-15.3); Mean Corpuscular HGB Conc 29.5 g/dL (32.0-36.0); Mean Corpuscular Hemoglobin 23.9 pg (27.0-31.0); Mean Corpuscular Volume 81.1 fL (78.0-102.0); Mean Platelet Volume 12.1 fl (8.7-11.0); Platelet Count Result 198 K/mm3 (150-420); Red Blood Count 3.55 M/mm3 (4.70-6.10); Red Cell Distribution Width 21.1 % (11.6-14.4); White Blood Count 6.9 K/mm3 (4.8-10.8)
[2021-07-26 05:18] LABS: Albumin Level 2.1 g/dL (3.4-5.0); Alkaline Phosphatase 74 U/L (46-116); Anion Gap 10 mmol/L (8-16); Aspartate Amino Transferase 12 U/L (15-37); Bilirubin,Total 1.2 mg/dL (0.00-1.00); Blood Urea Nitrogen 39 mg/dL (7-18); Calcium 7.8 mg/dL (8.5-10.1); Carbon Dioxide 23 mmol/L (21-32); Chloride 105 mmol/L (98-108); Estimated CRCL calculation 24 ml/min; Estimated Glomerular Filt Rate 24; Glucose 131 mg/dL (70-99); Magnesium 1.8 mg/dL (1.8-2.4); Osmolality Calculated 297 mOsm/kg (285-295); Potassium 3.8 mmol/L (3.5-5.1); Sodium 138 mmol/L (136-145); Total Protein 5.5 g/dL (6.4-8.2)
[2021-07-26 05:24] LABS: Alanine Aminotransferase < 6 U/L (16-63)
[2021-07-26] MEDS: LEVOTHYROXINE SODIUM 75 MCG TABLET 150 MCG PO (06:14)
[2021-07-26 07:47] LABS: Glucose Point of Care 143 mg/dl (65-105)
[2021-07-26 08:00] VITALS: BP 98/57; PULSE 96; RESP 14; TEMP 37; O2SAT 97
--- NOTE | 2021-07-26 08:51 | PM.SD2 ---
Same Day Admit/Disch: HPI History of Present Illness Chief complaint: pain/weakness Narrative: Tyson García is a 81 year old male that presented to urgent care with complaints of pain to his neck and shoulder area with nausea and vomiting and weakness. Patient has a past medical history of A-fib,Acquired hypothyroidism,Chronic renal failure on peritoneal dialysis, Diabetes,Heart attack,History of thyroid cancer,Hypertension,Kidney stone,Pacemaker, tobacco dependent, right lung mass, CVA, right below the knee amputation thyroid disease. Patient is well-known to our establishment he has been admitted several times and left AMA. Patient refuses to be transferred to an outside hospital and has elected a DNR. According to patient he takes peritoneal dialysis on Wednesdays and Fridays. Patient notes that on Tuesday he only took out 28 mL of fluid patient notes that he skipped Tuesday as a result of that. Patient notes that he started to leak on Tuesday so he decided to do his peritoneal dialysis. Patient notes that he took off 2 L of fluids and stopped at 2 L. Patient was found to be hypotensive on arrival with a blood pressure 70/50 he was given a bolus of fluid in ED current vital signs 98/57, 96, 17, 98.6, 97% on room air, WBCs 5.5, hemoglobin 7.6, hematocrit 25.6, platelets 165, sodium 136, potassium 4.0, BUN 33, creatinine 2.78, glucose 186, lactic acid 1.9, uric acid 7.7, calcium 7.8, magnesium 1.5, total bilirubin 1.5, AST 13, ALT 7, troponin 32.2, BUN 40750, chest x-ray stable small right pleural effusion, EKG A. fib paced with a heart rate of 78. 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 Patient does not appear to be in any distress he is at baseline on discharge. [facility] Past Medical History Medical History A-fib Acquired hypothyroidism Chronic renal failure Diabetes Heart attack History of thyroid cancer Hypertension Kidney stone Pacemaker Thyroid disease Surgical History Surgical History H/O inguinal hernia repair H/O thyroidectomy History of back surgery Hx of BKA S/P bilateral foot surgery Family History Family History Father Heart failure Mother Cerebrovascular accident Sibling Kidney failure Social History Social History Smoking packs per day: 1 Smoking cigarettes per day: 20.0 Years smoked: 50 Smoking pack-years: 50.00 Smoking status: Former smoker Tobacco type: cigarettes and pipe Second hand tobacco smoke exposure: No Alcohol intake: never Substance use: never Gender identity (if verbalized by the patient): Male Spiritual care concerns: No (atheist) Same Day Admit/Disch: Med Pre-admit Medications Home Medications Medication Instructions Recorded Confirmed Type apixaban 5 mg tablet 5 mg PO BID 02/15/19 07/25/21 History carvedilol 12.5 mg tablet 3.125 mg PO Q12H 02/15/19 07/25/21 History levothyroxine 175 mcg tablet 150 mcg PO DAILY 02/15/19 07/25/21 History megestrol 40 mg PO DAILY 05/20/21 07/25/21 History pantoprazole 40 mg PO DAILY 05/20/21 07/25/21 History albuterol sulfate [ProAir HFA] 2 puff INHALATION QID PRN #8.5 g 06/29/21 07/25/21 Rx benzonatate 200 mg PO TID PRN #90 cap 06/29/21 07/25/21 Rx lorazepam 1 mg PO DAILY #30 tablet 06/29/21 07/25/21 Rx Exam Narrative: GENERAL: Pleasant in no apparent distress. HEAD: normocephalic, atraumatic. EYES: PERRL. Sclera clear/white. Vision is grossly intact. EARS: External ears normal, auditory canals clear and without drainage, TMs normal without perforation. Hearing grossly intact. NOSE: External nose normal with no obvious nasal discharge, nares without r
[2021-07-26] MEDS: APIXABAN 2.5 MG TABLET 5 MG PO (09:35)
[2021-07-26] MEDS: PANTOPRAZOLE 40 MG TABLET PO (09:36)
[2021-07-26] MEDS: LORazepam (*CRX) 1 MG TABLET PO (09:36)
--- NOTE | 2021-07-26 10:10 | PC.NURSE ---
Toma contacted about ride home for patient. Real is to pick patient up at around 1100.
--- NOTE | 2021-07-26 11:26 | PC.NURSE ---
Pt discharged AMA. RFA 20 G IV removed intact and dressing applied. Discharge instructions given to pt. Pt instructed to call primary MD on Tuesday for follow up appointment. Pt A/Ox3.
--- NOTE | 2021-07-27 11:18 | PC.NURSE ---
Pt states he received and understood his discharge instructions. Pt has no other comments.
--- NOTE | 2021-07-31 09:56 | PC.NURSE ---
call placed to dr bailon office , aware of blood culture results, abt rx. pt has appt today in the office per adis.
== END 2021-07-26 11:00 | disposition left against medical advice (07) | DRG 682 ==
LOC: CHSED 18:53 → CHS2ND 19:03
PROVIDERS: Nurse Practitioner; Admitting Provider Internal Medicine; Emergency Provider Internal Medicine Critical Care Medicine; PCP Internal Medicine; Visit Provider Internal Medicine
DX: N17.9 Acute kidney failure, unspecified (principal); I95.9 Hypotension, unspecified; R57.1 Hypovolemic shock; I12.0 Hypertensive chronic kidney disease with stage 5 chronic kidney disease or end stage renal disease; I48.20 Chronic atrial fibrillation, unspecified; I73.9 Peripheral vascular disease, unspecified; I13.0 Hypertensive heart and chronic kidney disease with heart failure and stage 1 through stage 4 chronic kidney disease, or unspecified chronic kidney disease; C7B.8 Other secondary neuroendocrine tumors; C7A.8 Other malignant neuroendocrine tumors; D64.9 Anemia, unspecified; N18.4 Chronic kidney disease, stage 4 (severe); I50.9 Heart failure, unspecified; E11.22 Type 2 diabetes mellitus with diabetic chronic kidney disease; J44.9 Chronic obstructive pulmonary disease, unspecified; Z86.73 Personal history of transient ischemic attack (TIA), and cerebral infarction without residual deficits; E89.0 Postprocedural hypothyroidism; I25.2 Old myocardial infarction; F17.210 Nicotine dependence, cigarettes, uncomplicated; Z85.850 Personal history of malignant neoplasm of thyroid; Z89.511 Acquired absence of right leg below knee; Z99.2 Dependence on renal dialysis; Z95.0 Presence of cardiac pacemaker
CPT/HCPCS: 36415; 71045; 80053; 82948; 83605; 83690; 83735; 83880; 84484; 84550; 85025; 85027; 85610; 85730; 87040; 87147; 87186; 93005; 96360; 99285; A9270; J7040; J7120

== ENCOUNTER 2021-07-26 19:39 | Emergency (ER) | payer MEDICARE, SELFPAY ==
--- NOTE | ~2021-07-26 | CT_ITS ---
EXAMINATION: CT chest abdomen pelvis wo con DATE: 07/26/2021 21:11 INDICATION: Upper abdominal pain TECHNIQUE: Transaxial computed tomographic images of the chest, abdomen, and pelvis were obtained wit hout intravenous contrast. The dose-length product (DLP) was 1012.19 mGy-cm. Automated exposure contr ol and iterative reconstruction technique were employed. COMPARISON: 03/18/2021 FINDINGS: CHEST CT: There has been interval insertion of a left-sided chest tube with a persistent small pleural effusion . Foci of gas are seen in the right pleural space, likely related to chest tube. There is improved ae ration of the right middle lobe. A right perihilar mass is again seen which is contiguous with subcar inal lymph nodes. There is slight decrease in stricture of the proximal intermedius and there is no l onger occlusion of the right middle lobe bronchus. Cardiomegaly is noted. There is calcified coronary artery atherosclerosis. There is moderate thoracic spondylosis. ABDOMEN/PELVIS CT: The gallbladder is surgically absent. The liver, spleen, pancreas, and adrenal glands are normal. Cys ts of the kidneys measure up to 10.1 cm on the left. There is calcified atherosclerosis of the aorta and many of the other arteries. No pathologically enlarged abdominal or pelvic lymph nodes are identi fied. There is no free intraperitoneal gas or evidence of bowel obstruction. There is a small volume of pelvic ascites. There is severe lumbar spondylosis. IMPRESSION: 1. No CT correlate for the patient's symptoms. 2. Right hilar mass contiguous with subcarinal lymph nodes, consistent with treated malignancy, sligh t improvement in right middle lobe aeration. 3. Interval insertion of a right-sided chest tube with decrease in pleural effusion but some areas of gas in the right pleural space. Reviewed, dictated and finalized at location F. IMPRESSION: 1. No CT correlate for the patient's symptoms. 2. Right hilar mass contiguous with subcarinal lymph nodes, consistent with claude ated malignancy, slight improvement in right middle lobe aeration. 3. Interval insertion of a right-sided chest tube with decrease in pleural effu emeterio but some areas of gas in the right pleural space.
[2021-07-26 19:42] VITALS: BP 102/53; PULSE 91; RESP 16; TEMP 36.6; O2SAT 100
--- NOTE | 2021-07-26 20:07 | ECG_ITS ---
Measurements Intervals [place] Rate: 100 P: NM: 0 QRS: 167 QRSD: 156 T: 45 QT: 414 QTc: 534 Interpretive Statements ATRIAL FIBRILLATION WITH RAPID VENTRICULAR RESPONSE WITH RIGHT BUNDLE BRANCH BLOCK RIGHT BUNDLE BRANCH BLOCK [120+ ms QRS DURATION, UPRIGHT V1, 40+ ms S IN I/aVL/V4/V5/V6] LEFT POSTERIOR FASCICULAR BLOCK [QRS AXIS > 109, INFERIOR Q] COMPARED TO ECG 07/25/2021 16:33:23 HEART RATE IS INCREASED SO ELECTRONIC PACEMAKER IS INHIBITED Electronically Signed On 07-27-2021 16:55:02 CDT by Christos Stout M.D.
[2021-07-26] MEDS: SODIUM CHLORIDE 0.9% IV 1,000 ML 999 ML IV CONT (20:33)
[2021-07-26] MEDS: MORPHINE SULFATE (*CRX) 4 MG/ML INJ 2 MG IV PUSH (20:34)
[2021-07-26] MEDS: ONDANSETRON INJ 4 MG/2 ML VIAL IV PUSH (20:36)
[2021-07-26] MEDS: PANTOPRAZOLE SODIUM IV 40 MG VIAL IV PUSH (20:37)
[2021-07-26 20:40] LABS: Basophils Absolute Auto 0.01 K/mm3 (0.00-0.10); Basophils Percent Auto 0.1 % (0.0-1.0); Eosinophils Absolute Auto 0.05 K/mm3 (0.02-0.50); Eosinophils Percent Auto 0.7 % (1.0-6.0); Hematocrit 28.2 % (37.0-46.0); Hemoglobin 8.5 g/dL (12.4-15.3); Immature Granulocyte Absolute 0.03 K/mm3 (0.00-0.00); Immature Granulocyte Percent A 0.4 % (0.0-0.0); Lymphocytes Absolute Auto 0.21 K/mm3 (1.10-4.50); Mean Corpuscular HGB Conc 30.1 g/dL (32.0-36.0); Mean Corpuscular Hemoglobin 24.1 pg (27.0-31.0); Mean Corpuscular Volume 79.9 fL (78.0-102.0); Mean Platelet Volume 11.5 fl (8.7-11.0); Monocytes Absolute Auto 0.82 K/mm3 (0.10-0.90); Monocytes Percent Auto 11.5 % (2.0-11.0); Neutrophils Percent Auto 84.3 % (50.0-70.0); Platelet Count Result 215 K/mm3 (150-420); Red Blood Count 3.53 M/mm3 (4.70-6.10); Red Cell Distribution Width 21.1 % (11.6-14.4); White Blood Count 7.1 K/mm3 (4.8-10.8)
[2021-07-26 20:59] LABS: Alanine Aminotransferase 19 U/L (16-63); Albumin Level 2.4 g/dL (3.4-5.0); Alkaline Phosphatase 82 U/L (46-116); Anion Gap 11 mmol/L (8-16); Aspartate Amino Transferase 19 U/L (15-37); Bilirubin,Total 1.3 mg/dL (0.00-1.00); Blood Urea Nitrogen 46 mg/dL (7-18); Calcium 8.4 mg/dL (8.5-10.1); Carbon Dioxide 22 mmol/L (21-32); Chloride 103 mmol/L (98-108); Estimated Glomerular Filt Rate 24; Glucose 156 mg/dL (70-99); Lipase 40 U/L (73-393); Osmolality Calculated 296 mOsm/kg (285-295); Sodium 136 mmol/L (136-145); Troponin I 24.5 ng/L (0.00-60.4)
[2021-07-26 21:01] LABS: Lactic Acid Reflex 1.5 mmol/L (0.4-2.0)
[2021-07-26 21:04] LABS: INR 1.2; Partial Thromboplastin Time 35.4 SEC (23.90-30.70)
[2021-07-26 21:11] VITALS: BP 105/53; PULSE 77; RESP 18; O2SAT 94
[2021-07-26 21:27] LABS: Appearance Urine Clear (Clear); Bilirubin Urine 2+ (Negative); Color Urine Yellow (Yellow); Glucose Urine UA Negative (Negative); Ketones Urine 1+ (Negative); Leukocyte Esterase Ur 2+ LEU/UL (Negative); Nitrate Urine Negative (Negative); Protein Urine 2+ (Negative)
[2021-07-26 21:37] LABS: Add Urine Microscopic? YES; Blood Urine Trace-lysed (Negative); RBC Urine 0-2 /hpf (0-2); WBC Urine 31-50 /hpf (0-3)
[2021-07-26 21:38] LABS: Amorphous Sediment Urine Moderate; Bacteria Urine 4+ /hpf; Mucus Urine Moderate /lpf; Renal Epithelial Cells Urine Few /hpf; Squamous Epithelial Cell Urine Few /hpf (Few)
--- NOTE | 2021-07-26 21:45 | PC.NURSE ---
Pt states his pain has been relieved greatly and is ready to leave. Pt states he has called his neighbor for a ride and is awaiting discharge papers. Pt states he will be calling his PCP in the morning and just wanted pain control.
--- NOTE | 2021-07-26 21:56 | ED.ABDPAIN ---
HPI - Abdominal Pain General Chief Complaint: Abdominal Pain Stated Complaint: ambulance Time Seen by Provider: 07/26/21 19:41 Source: patient, EMS and RN notes reviewed Mode of arrival: EMS Limitations: no limitations History of Present Illness MD elicited complaint: abdominal pain (mild upper abdominal pain) Pertinent past history: other (Recent hospitalization for hypotension and pt left AMA in the AM 07/26/2021. He took off 1 liter of pleural fluid today. Main problem was abdominal pain.) Onset (ago): hour(s) (3) Pain Consistency: constant Location: epigastric Severity: moderate Pain scale (0-10): 7 Quality: cramping, aching and dull Exacerbating factors: nothing Relieving factors: nothing Related Data Home Medications Medication Instructions Recorded Confirmed apixaban 5 mg tablet 5 mg PO BID 02/15/19 07/26/21 carvedilol 12.5 mg tablet 3.125 mg PO Q12H 02/15/19 07/26/21 levothyroxine 175 mcg tablet 150 mcg PO DAILY 02/15/19 07/26/21 megestrol 40 mg PO DAILY 05/20/21 07/26/21 pantoprazole 40 mg PO DAILY 05/20/21 07/26/21 Allergies Allergy/AdvReac Type Severity Reaction Status Date / Time iohexol Allergy Intermediate PETECHAIE Verified 07/26/21 19:55 [From CONTRAST - CT, XRAY] Sulfa (Sulfonamide Allergy Unknown Hives Verified 07/26/21 19:55 Antibiotics) iv antibiotics unknown Allergy Intermediate Rash Uncoded 03/09/19 10:03 Review of Systems Review of Systems: All systems reviewed & are unremarkable except as noted in HPI and below PMFSH Past Medical History Medical History A-fib Abdominal pain Acquired hypothyroidism Chronic renal failure Diabetes Heart attack History of thyroid cancer Hypertension Kidney stone Pacemaker Thyroid disease UTI (urinary tract infection) Surgical History Surgical History H/O inguinal hernia repair H/O thyroidectomy History of back surgery Hx of BKA S/P bilateral foot surgery Family History Family History Father Heart failure Mother Cerebrovascular accident Sibling Kidney failure Social History Social History Smoking packs per day: 1 Smoking cigarettes per day: 20.0 Years smoked: 50 Smoking pack-years: 50.00 Smoking status: Former smoker Tobacco type: cigarettes and pipe Second hand tobacco smoke exposure: No Alcohol intake: never Substance use: never Gender identity (if verbalized by the patient): Male Spiritual care concerns: No (atheist) Exam Const: General: no acute distress and alert Nutritional Appearance: thin Orientation/consciousness: patient oriented x3 Limitations: no limitations HENMT: Head: normal to inspection Ears: external ears normal, TM's normal bilaterally and EAC's normal General nose exam: Normal external nose present and Normal nares present Mouth: Yes moist mucous membranes Eyes: Conjunctivae: conjunctivae normal Pupils: Equal, round and reactive pupils present EOM: EOMs intact bilaterally Neck: Neck: normal visual inspection Chest: Chest palpation & inspection: normal inspection of the chest Resp: Effort & Inspection: normal respiratory effort Auscultation: clear to auscultation bilaterally Cardio: Rate: regular rate Rhythm: abnormal rhythm GI: GI Palp: Yes Soft to palpation and No Tenderness to palpation present (GI) Auscultation: normal bowel sounds : General: Yes bladder normal to palpation and Yes no CVA tenderness Male General Exam: Yes normal external exam Testes: Testes normal Back/Spine/Pelvis: Back: no CVA tenderness Skin: General skin exam: normal color Neuro: General: patient oriented x3, moves all extremities, no meningeal signs, no focal motor deficits and CN's II-XI intact bilaterally Extrem: General: edema (left leg. right BK pros
[2021-07-26] MEDS: LIDOCAINE HCL 1% LOCAL INJ 20 ML VIAL (22:18)
[2021-07-26] MEDS: cefTRIAXone 1 GM VIAL IM (22:18)
[2021-07-26 22:25] VITALS: BP 87/56; PULSE 98; RESP 16; O2SAT 97
== END 2021-07-26 22:38 | disposition home or self-care (01) ==
PROVIDERS: Emergency Provider Emergency Medicine; PCP Internal Medicine
DX: N30.00 Acute cystitis without hematuria (principal); R10.10 Upper abdominal pain, unspecified; I48.91 Unspecified atrial fibrillation; E03.8 Other specified hypothyroidism; E11.9 Type 2 diabetes mellitus without complications; I10 Essential (primary) hypertension; Z87.891 Personal history of nicotine dependence
CPT/HCPCS: 36415; 71250; 74176; 80053; 81001; 83605; 83690; 84484; 85025; 85610; 85730; 87077; 87086; 87088; 87186; 93005; 96361; 96372; 96374; 96375; 99284; C9113; J0696; J2270; J2405; J7030

== ENCOUNTER 2021-07-31 14:42 | Emergency (ER) | payer MEDICARE, SELFPAY ==
--- NOTE | 2021-07-31 14:54 | ED_ITS ---
HPI - General Ped General Chief complaint: Unspecified Stated complaint: DR SENT TO ER Time Seen by Provider: 07/31/21 14:44 Source: patient and RN notes reviewed Mode of arrival: wheelchair Limitations: no limitations Nursing Documentation: reviewed/agree Related Data Home Medications Medication Instructions Recorded Confirmed apixaban 5 mg tablet 5 mg PO BID 02/15/19 07/31/21 carvedilol 12.5 mg tablet 3.125 mg PO Q12H 02/15/19 07/31/21 levothyroxine 175 mcg tablet 150 mcg PO DAILY 02/15/19 07/31/21 megestrol 40 mg PO DAILY 05/20/21 07/31/21 pantoprazole 40 mg PO DAILY 05/20/21 07/31/21 Allergies Allergy/AdvReac Type Severity Reaction Status Date / Time iohexol Allergy Intermediate PETECHAIE Verified 07/31/21 15:19 [From CONTRAST - CT, XRAY] Sulfa (Sulfonamide Allergy Unknown Hives Verified 07/31/21 15:19 Antibiotics) iv antibiotics unknown Allergy Intermediate Rash Uncoded 03/09/19 10:03 [facility] Past Medical History Medical History A-fib Abdominal pain Acquired hypothyroidism Chronic renal failure Diabetes Heart attack History of thyroid cancer Hypertension Kidney stone Pacemaker Thyroid disease UTI (urinary tract infection) Surgical History Surgical History H/O inguinal hernia repair H/O thyroidectomy History of back surgery Hx of BKA S/P bilateral foot surgery Family History Family History Father Heart failure Mother Cerebrovascular accident Sibling Kidney failure Social History Social History Smoking packs per day: 1 Smoking cigarettes per day: 20.0 Years smoked: 50 Smoking pack-years: 50.00 Smoking status: Former smoker Tobacco type: cigarettes and pipe Second hand tobacco smoke exposure: No Alcohol intake: never Substance use: never Gender identity (if verbalized by the patient): Male Spiritual care concerns: No (atheist) Discharge Plan Discharge Clinical Impression: Equipment malfunction Patient Disposition: Home, Self-Care Condition: Improved Instructions: Chest Tubes (DC) Additional Instructions: Call for culture results. Continue to attempt drainage, if needed takeoff cap from tubing and drain through gravity. Prescriptions: No Action benzonatate 200 mg capsule 200 mg PO TID PRN (Reason: cough) Qty: 90 RF: 1 albuterol sulfate [ProAir HFA] 90 mcg/actuation HFA aerosol inhaler 2 puff inhalation QID PRN (Reason: shortness of breath or wheezing) Qty: 8.5 RF: 2 lorazepam 1 mg tablet 1 mg PO DAILY Qty: 30 RF: 0 acetaminophen [Tylenol] 325 mg capsule 650 mg PO Q8H PRN (Reason: pain) Qty: 20 RF: 0 pantoprazole 40 mg tablet,delayed release (DR/EC) 40 mg PO DAILY RF: 0 megestrol 40 mg tablet 40 mg PO DAILY RF: 0 levothyroxine 175 mcg tablet 150 mcg PO DAILY RF: 0 carvedilol 12.5 mg tablet 3.125 mg PO Q12H RF: 0 Eliquis 5 mg tablet 5 mg PO BID RF: 0 Follow-up/Referrals: Frankie Watt MD [Primary Care Provider] - Time of Disposition: 15:28
[2021-07-31 15:21] VITALS: BP 112/67; PULSE 85; RESP 16; TEMP 35.9; O2SAT 98
--- NOTE | 2021-07-31 15:27 | PC.NURSE ---
ERP able to unclog chest tube and drained 600ml of pleural fluid. Fluid was slightly thick and had a bloody appearance.
--- NOTE | 2021-07-31 15:39 | ED.GENADULT ---
HPI - General Adult General Chief complaint: Unspecified Stated complaint: DR SENT TO ER Time Seen by Provider: 07/31/21 14:44 Source: patient and RN notes reviewed Mode of arrival: wheelchair Limitations: physical limitation History of Present Illness HPI narrative: patient states that he usually drains fluid from his pleural drain every 2 days. He gets approximately 1000 mL each time. Lately it has been more bloody. He tried to drain it today and he was not able to get it to come out. He went to his primary care physician and they tried to get it to drain but it would not. He sent here to possibly be sent to [place] for management of the pleural drain. complaint: pleural drain clogged Onset (ago): hour(s) (6) Related Data Home Medications Medication Instructions Recorded Confirmed apixaban 5 mg tablet 5 mg PO BID 02/15/19 07/31/21 carvedilol 12.5 mg tablet 3.125 mg PO Q12H 02/15/19 07/31/21 levothyroxine 175 mcg tablet 150 mcg PO DAILY 02/15/19 07/31/21 megestrol 40 mg PO DAILY 05/20/21 07/31/21 pantoprazole 40 mg PO DAILY 05/20/21 07/31/21 Allergies Allergy/AdvReac Type Severity Reaction Status Date / Time iohexol Allergy Intermediate PETECHAIE Verified 07/31/21 15:19 [From CONTRAST - CT, XRAY] Sulfa (Sulfonamide Allergy Unknown Hives Verified 07/31/21 15:19 Antibiotics) iv antibiotics unknown Allergy Intermediate Rash Uncoded 03/09/19 10:03 Review of Systems Review of Systems: All systems reviewed & are unremarkable except as noted in HPI and below PMFSH Past Medical History Medical History A-fib Abdominal pain Acquired hypothyroidism Chronic renal failure Diabetes Heart attack History of thyroid cancer Hypertension Kidney stone Pacemaker Thyroid disease UTI (urinary tract infection) Surgical History Surgical History H/O inguinal hernia repair H/O thyroidectomy History of back surgery Hx of BKA S/P bilateral foot surgery Family History Family History Father Heart failure Mother Cerebrovascular accident Sibling Kidney failure Social History Social History Smoking packs per day: 1 Smoking cigarettes per day: 20.0 Years smoked: 50 Smoking pack-years: 50.00 Smoking status: Former smoker Tobacco type: cigarettes and pipe Second hand tobacco smoke exposure: No Alcohol intake: never Substance use: never Gender identity (if verbalized by the patient): Male Spiritual care concerns: No (atheist) Exam Const: General: no acute distress, alert and ill appearing chronically Nutritional Appearance: well nourished and thin Orientation/consciousness: patient oriented x3 HENMT: Head: normal to inspection Ears: external ears normal Face and sinus: normal facial exam Mouth: Yes moist mucous membranes Eyes: Conjunctivae: conjunctivae normal Pupils: Equal, round and reactive pupils present EOM: EOMs intact bilaterally Chest: Other: Pleural drain present in the right anterior axillary line. Resp: Auscultation: diminished lung sounds on the right in the lower lung baum Cardio: Rate: regular rate Rhythm: regular rhythm GI: GI Palp: Yes Soft to palpation and No Tenderness to palpation present (GI) Auscultation: normal bowel sounds Course Course Emergency Course: I removed the one-way valve from the end of the pleural drain tube. I was able to drained 600 mL of turbid bloody fluid from the pleural space. This is sent for cell count and culture. Patient otherwise had no other complaints. The one-way valve was flushed with an Angiocath and sterile saline. The cap was then replaced and it is taped up back to his chest. I spoke with his primary care physician to relay that I was able to drain the fluid. He said he would ask home health ca
--- NOTE | 2021-07-31 15:40 | PC.NURSE ---
ERP informed Dr. Watt that he was able to drain 600ml of fluid from pt's tube after removing the cap. ERP flushed the cap in attempt to make it drain better, but pt informed that he may need to remove the cap and drain via gravity if his tube appears clogged again. Pt instructed to follow up with Dr. Watt.
[2021-07-31 15:57] LABS: Appearance Pleural Fluid Turbid (Clear); Color Pleural Fluid Red (Colorless); Pleural fluid source Pleural fluid
[2021-07-31 16:00] LABS: RBC Pleural Fluid 0 /uL (0-0)
[2021-07-31 16:01] LABS: Lymphocytes Pleural Fluid 23 %; Neutrophils Pleural Fluid 77 % (0-25); Nucleated Cell Pleural Fluid 200 /uL (0-1000)
== END 2021-07-31 15:42 | disposition home or self-care (01) ==
PROVIDERS: Emergency Provider Emergency Medicine; PCP Internal Medicine
DX: T85.9XXA Unspecified complication of internal prosthetic device, implant and graft, initial encounter (principal); I48.91 Unspecified atrial fibrillation; E03.8 Other specified hypothyroidism; E11.9 Type 2 diabetes mellitus without complications; I10 Essential (primary) hypertension; Z87.891 Personal history of nicotine dependence
CPT/HCPCS: 87070; 87075; 87147; 87186; 87205; 89051; 99283

== ENCOUNTER 2021-08-12 09:52 | Outpatient (CLI) | payer MEDICARE, SELFPAY ==
[2021-08-12 10:10] LABS: Basophils Absolute Auto 0.03 K/mm3 (0.00-0.10); Basophils Percent Auto 0.5 % (0.0-1.0); Eosinophils Absolute Auto 0.14 K/mm3 (0.02-0.50); Eosinophils Percent Auto 2.5 % (1.0-6.0); Hematocrit 29.5 % (37.0-46.0); Hemoglobin 8.6 g/dL (12.4-15.3); Immature Granulocyte Absolute 0.03 K/mm3 (0.00-0.00); Immature Granulocyte Percent A 0.5 % (0.0-0.0); Lymphocytes Absolute Auto 0.42 K/mm3 (1.10-4.50); Lymphocytes Percent Auto 7.4 % (18.0-42.0); Mean Corpuscular HGB Conc 29.2 g/dL (32.0-36.0); Mean Corpuscular Hemoglobin 23.6 pg (27.0-31.0); Mean Corpuscular Volume 80.8 fL (78.0-102.0); Mean Platelet Volume 10.2 fl (8.7-11.0); Monocytes Absolute Auto 0.55 K/mm3 (0.10-0.90); Monocytes Percent Auto 9.7 % (2.0-11.0); Neutrophils Absolute Auto 4.5 K/mm3 (1.7-7.2); Neutrophils Percent Auto 79.4 % (50.0-70.0); Platelet Count Result 261 K/mm3 (150-420); Red Blood Count 3.65 M/mm3 (4.70-6.10); Red Cell Distribution Width 21.9 % (11.6-14.4); White Blood Count 5.7 K/mm3 (4.8-10.8)
== END 2021-08-12 09:53 | disposition home or self-care (01) ==
LOC: CHSLAB 09:54
PROVIDERS: PCP Internal Medicine; Visit Provider Internal Medicine
DX: D64.9 Anemia, unspecified (principal)
CPT/HCPCS: 36415; 85025

== ENCOUNTER 2021-08-20 09:54 | Outpatient (CLI) | payer MEDICARE, SELFPAY ==
[2021-08-20 10:04] VITALS: BMI 21.4
[2021-08-20] MEDS: DARBEPOETIN ALFA 100 MCG/ML VIAL 75 MCG SUB-Q (10:23)
--- NOTE | 2021-08-20 10:26 | PC.NURSE ---
Patient here for 1 x order of Aranesp injection. Education on medication given. No concerns voice. H/H 8.6/29.8. Aranesp injection administered see Jun. Safe exit of hospital.
== END 2021-08-20 09:55 | disposition home or self-care (01) ==
PROVIDERS: PCP Internal Medicine; Visit Provider Internal Medicine
DX: N18.4 Chronic kidney disease, stage 4 (severe) (principal); D63.1 Anemia in chronic kidney disease
CPT/HCPCS: 96372; J0881

== ENCOUNTER 2021-09-11 11:24 | Outpatient (CLI) | payer MEDICARE, SELFPAY ==
--- NOTE | ~2021-09-11 | US_ITS ---
EXAMINATION: US soft tissue LE RT DATE: 09/11/2021 12:53 INDICATION: Right thigh mass. TECHNIQUE: Multiple grayscale and Doppler ultrasound images of the right thigh were obtained. COMPARISON: CT abdomen and pelvis 07/26/2021 FINDINGS: In the lateral right thigh, there is a 4.0 x 2.5 x 0.8 cm hypoechoic subcutaneous mass. In the lateral right thigh, there is a 4.6 x 1.0 x 1.1 cm hypoechoic subcutaneous mass. IMPRESSION: 1. Two subcutaneous masses in lateral right thigh, most likely hematomas given the shape and location . Reviewed, dictated and finalized at location A. IMPRESSION: 1. Two subcutaneous masses in lateral right thigh, most likely hematomas given the shape and location.
[2021-09-11 11:49] LABS: Basophils Absolute Auto 0.04 K/mm3 (0.00-0.10); Basophils Percent Auto 0.8 % (0.0-1.0); Eosinophils Absolute Auto 0.07 K/mm3 (0.02-0.50); Eosinophils Percent Auto 1.4 % (1.0-6.0); Hematocrit 26.9 % (37.0-46.0); Hemoglobin 7.9 g/dL (12.4-15.3); Immature Granulocyte Absolute 0.02 K/mm3 (0.00-0.00); Immature Granulocyte Percent A 0.4 % (0.0-0.0); Lymphocytes Absolute Auto 0.43 K/mm3 (1.10-4.50); Lymphocytes Percent Auto 8.4 % (18.0-42.0); Mean Corpuscular HGB Conc 29.4 g/dL (32.0-36.0); Mean Corpuscular Hemoglobin 24.5 pg (27.0-31.0); Mean Corpuscular Volume 83.5 fL (78.0-102.0); Mean Platelet Volume 10.3 fl (8.7-11.0); Monocytes Absolute Auto 0.45 K/mm3 (0.10-0.90); Monocytes Percent Auto 8.8 % (2.0-11.0); Neutrophils Absolute Auto 4.1 K/mm3 (1.7-7.2); Neutrophils Percent Auto 80.2 % (50.0-70.0); Platelet Count Result 242 K/mm3 (150-420); Red Blood Count 3.22 M/mm3 (4.70-6.10); Red Cell Distribution Width 20.1 % (11.6-14.4); White Blood Count 5.1 K/mm3 (4.8-10.8)
[2021-09-11 12:18] LABS: Albumin Level 2.1 g/dL (3.4-5.0); Alkaline Phosphatase 97 U/L (46-116); Amylase 28 U/L (25-115); Anion Gap 6 mmol/L (8-16); Aspartate Amino Transferase 13 U/L (15-37); Bilirubin,Total 0.5 mg/dL (0.00-1.00); Blood Urea Nitrogen 13 mg/dL (7-18); Calcium 8.4 mg/dL (8.5-10.1); Carbon Dioxide 29 mmol/L (21-32); Chloride 102 mmol/L (98-108); Estimated Glomerular Filt Rate 57; Ferritin 44 ng/mL (26-388); Glucose 114 mg/dL (70-99); Iron 20 ug/dL (65-175); Lipase 33 U/L (73-393); Osmolality Calculated 285 mOsm/kg (285-295); Potassium 4.2 mmol/L (3.5-5.1); Sodium 137 mmol/L (136-145); Total Protein 6.8 g/dL (6.4-8.2)
[2021-09-11 12:27] LABS: Alanine Aminotransferase 8 U/L (16-63)
== END 2021-09-11 11:25 | disposition home or self-care (01) ==
LOC: CHSLAB 11:26
PROVIDERS: PCP Internal Medicine; Visit Provider Internal Medicine
DX: R22.41 Localized swelling, mass and lump, right lower limb (principal); R11.0 Nausea; J90 Pleural effusion, not elsewhere classified; D64.9 Anemia, unspecified
CPT/HCPCS: 36415; 76882; 80053; 82150; 82728; 83540; 83690; 85025; 87070; 87075; 87147; 87186; 87205

== ENCOUNTER 2021-09-17 10:05 | Outpatient (CLI) | payer MEDICARE, SELFPAY ==
[2021-09-17] MEDS: DARBEPOETIN ALFA 100 MCG/ML VIAL 75 MCG SUB-Q (10:22)
[2021-09-17 10:44] VITALS: BMI 16.2
--- NOTE | 2021-09-17 10:50 | PC.NURSE ---
Patient here for Aranesp injection. H/H 7.9/26.9 on last CBC. Education on med given. All concerns voiced. Aranesp injection administered. See MAR. Tolerated well. Will return 09/22/21 for IV Venofer infusions. Safe exit of hospital.
== END 2021-09-17 10:06 | disposition home or self-care (01) ==
LOC: CHSTREATRM 10:06
PROVIDERS: PCP Internal Medicine; Visit Provider Internal Medicine
DX: N18.30 Chronic kidney disease, stage 3 unspecified (principal); D63.1 Anemia in chronic kidney disease
CPT/HCPCS: 96372; J0881

== ENCOUNTER 2021-09-19 03:23 | Emergency (ER) | payer MEDICARE, SELFPAY ==
[2021-09-19 03:23] VITALS: BP 131/85; PULSE 102; RESP 18; TEMP 36.6; O2SAT 98
--- NOTE | 2021-09-19 03:39 | ED.MALEGU ---
HPI - Male Genitourinary General Stated complaint: PAIN Time Seen by Provider: 09/19/21 03:27 Source: patient and RN notes reviewed Mode of arrival: ambulatory Limitations: no limitations History of Present Illness HPI Narrative: urinary retention Onset (ago): hour(s) (2) Duration: constant Location: abdomen Severity: moderate Severity scale (1-10): 3 Quality: aching and dull Relieving factors: none Exacerbating factors: palpation Associated symptoms: Reports urinary retention Related Data Home Medications Medication Instructions Recorded Confirmed apixaban 5 mg tablet (Eliquis) 5 mg PO BID 02/15/19 09/17/21 carvedilol 12.5 mg tablet 3.125 mg PO Q12H 02/15/19 09/17/21 levothyroxine 175 mcg tablet 150 mcg PO DAILY 02/15/19 09/17/21 pantoprazole 40 mg tablet,delayed 40 mg PO DAILY 05/20/21 09/17/21 release fentanyl 12 mcg/hr transdermal 1 patch topical PER PKG DIR 09/19/21 09/19/21 patch nystatin 100,000 unit/gram topical 1 applic topical BID 09/19/21 09/19/21 cream ondansetron HCl 4 mg tablet 1 tablet PO PRN PRN Nausea 09/19/21 09/19/21 testosterone cypionate 200 mg/mL 200 mg IM WEEKLY 09/19/21 09/19/21 intramuscular oil Allergies Allergy/AdvReac Type Severity Reaction Status Date / Time iohexol Allergy Intermediate PETECHAIE Verified 09/19/21 03:54 [From CONTRAST - CT, XRAY] Sulfa (Sulfonamide Allergy Unknown Hives Verified 09/19/21 03:54 Antibiotics) iv antibiotics unknown Allergy Intermediate Rash Uncoded 09/19/21 03:54 Review of Systems Review of Systems: All systems reviewed & are unremarkable except as noted in HPI and below Constitutional: Constitutional: Reports no additional constitutional complaints Eyes: Eyes: Reports no additional eye complaints ENT: Reports system reviewed and no additional complaints, except as documented Cardiovascular: Cardiovascular: Reports no additional cardiovascular complaints Respiratory: Respiratory: Reports no additional respiratory complaints Gastrointestinal: Gastrointestinal: Reports no additional gastrointestinal complaints Musculoskeletal: Musculoskeletal: Reports no additional musculoskeletal complaints Integumentary/Breasts: Skin/Breast: Reports system reviewed and no additional complaints, except as docu Neurologic: Reports system reviewed and no additional complaints, except as documented Psychiatric: Psychiatric: Reports no additional psychiatric complaints Endocrine: Endocrine: Reports no additional endocrine complaints Hematologic/Lymphatic: Hematologic/Lymphatic: Reports no additional hematologic/lymphatic complaints Allergic/Immunologic: Allergic/Immunologic: Reports no additional allergic/immunologic complaints [facility] Past Medical History Medical History A-fib Abdominal pain Acquired hypothyroidism Chronic renal failure Diabetes Heart attack History of thyroid cancer Hypertension Kidney stone Pacemaker Thyroid disease Urinary retention UTI (urinary tract infection) Surgical History Surgical History H/O inguinal hernia repair H/O thyroidectomy History of back surgery Hx of BKA S/P bilateral foot surgery Family History Family History Father Heart failure Mother Cerebrovascular accident Sibling Kidney failure Social History Social History Smoking packs per day: 1 Smoking cigarettes per day: 20.0 Years smoked: 50 Smoking pack-years: 50.00 Smoking status: Former smoker Tobacco type: cigarettes and pipe Second hand tobacco smoke exposure: No Alcohol intake: never Substance use: never Gender identity (if verbalized by the patient): Male Spiritual care concerns: No (atheist) Exam Const: General: healthy appearing and no acute distress Nutritional Appearan
--- NOTE | 2021-09-19 03:52 | PC.NURSE ---
16 kazakh enciso catheter placed without difficulty, clear yellow urine returned immediately. clamped at 1400ml output. pt reports pain relief. secured with stat lock. will continue to monitor.
[2021-09-19 03:56] LABS: Add Urine Microscopic? YES; Appearance Urine Clear (Clear); Bilirubin Urine Negative (Negative); Blood Urine 1+ (Negative); Color Urine Light Yellow (Yellow); Glucose Urine UA Negative (Negative); Ketones Urine Negative (Negative); Leukocyte Esterase Ur Negative (Negative); Nitrate Urine Negative (Negative); Protein Urine Negative (Negative); Urobilinogen Urine 0.2 mg/dL (0.2-1.0); pH Urine 6.5 (5.0-8.0)
[2021-09-19 04:00] LABS: RBC Urine 0-2 /hpf (0-2)
--- NOTE | 2021-09-19 04:17 | PC.NURSE ---
enciso is unclamped and draining without difficulty. will continue to monitor.
--- NOTE | 2021-09-19 05:06 | PC.NURSE ---
pt is sleeping on stretcher with enciso cath continuing to drain without difficulty, currently 1800ml output. will continue to monitor.
--- NOTE | 2021-09-19 05:51 | PC.NURSE ---
leg bag placed on pt for dc home. total of 2000ml urinary output noted prior to dc. notified [facility] for transport home.
[2021-09-19 05:52] VITALS: BP 104/65; PULSE 77; RESP 14; TEMP 36.7; O2SAT 98
== END 2021-09-19 06:26 | disposition home or self-care (01) ==
PROVIDERS: Emergency Provider Emergency Medicine; PCP Internal Medicine
DX: R33.9 Retention of urine, unspecified (principal); I48.91 Unspecified atrial fibrillation; E03.9 Hypothyroidism, unspecified; E11.9 Type 2 diabetes mellitus without complications; N18.9 Chronic kidney disease, unspecified; I10 Essential (primary) hypertension; Z87.891 Personal history of nicotine dependence
CPT/HCPCS: 81001; 99283

== ENCOUNTER 2021-09-25 10:49 | Outpatient (CLI) | payer MEDICARE, SELFPAY ==
[2021-09-25 11:05] VITALS: BMI 20.6
[2021-09-25 11:15] VITALS: BP 92/60; PULSE 100; RESP 16; TEMP 36.6; O2SAT 97
[2021-09-25] MEDS: IRON SUCROSE COMPLEX 500 MG in SODIUM CHLORIDE 0.9% IV 250 ML 62.5 MG IVPB (11:15)
--- NOTE | 2021-09-25 15:01 | PC.NURSE ---
Patient here for #1 of 2 IV Venofer infusions. Education given. No concerns voiced. IV Venofer administered. See MAR. Tolerated well. Safe exit of hospital.
== END 2021-09-25 10:50 | disposition home or self-care (01) ==
LOC: CHSTREATRM 10:52
PROVIDERS: PCP Internal Medicine; Visit Provider Internal Medicine
DX: N18.30 Chronic kidney disease, stage 3 unspecified (principal); D63.1 Anemia in chronic kidney disease
CPT/HCPCS: 96365; 96366; J1756; J7050

== ENCOUNTER 2021-10-09 10:28 | Outpatient (CLI) | payer MEDICARE, SELFPAY ==
[2021-10-09] MEDS: IRON SUCROSE COMPLEX 500 MG in SODIUM CHLORIDE 0.9% IV 250 ML 62.5 MG IVPB (10:56)
[2021-10-09 11:01] VITALS: BP 121/57; PULSE 92; RESP 18; TEMP 36.8; O2SAT 96
[2021-10-09 11:29] VITALS: BMI 20.6
--- NOTE | 2021-10-09 15:15 | PC.NURSE ---
Patient here for #2 of 2 IV Venofer infusions. Eduction given. No concerns. Tolerated last one 2 weeks ago. IV Venofer administered. SEE MAR. Safe exit of hospital- [facility] van to [place] [facility]-patient safely in his wc.KJ
== END 2021-10-09 10:29 | disposition home or self-care (01) ==
LOC: CHSTREATRM 10:30
PROVIDERS: PCP Internal Medicine; Visit Provider Internal Medicine
DX: N18.30 Chronic kidney disease, stage 3 unspecified (principal); D63.1 Anemia in chronic kidney disease
CPT/HCPCS: 96365; 96366; J1756; J7050

== ENCOUNTER 2021-10-14 22:50 | Emergency (ER) | payer MEDICARE, SELFPAY ==
--- NOTE | ~2021-10-14 | XR_ITS ---
EXAMINATION: XR chest 1V portable DATE: 10/14/2021 23:30 INDICATION: Shortness of breath. TECHNIQUE: A single frontal view of the chest was obtained on 2 radiographs. COMPARISON: Chest single view 07/25/2021, chest CT 07/26/2021 FINDINGS: Again seen is volume loss in right hemithorax. There are airspace opacities in right perihi lar region, right mid and lower lung zones, and left lower lung zone. There is a small right pleural effusion. A right-sided pleural catheter is noted. No pneumothorax. Cardiomegaly is noted. There is a left chest wall pacer with leads in the right atrium, right ventricle, and coronary sinus. Is a sutu re anchor in right humeral head. IMPRESSION: 1. Chronic volume loss of right hemithorax with stable airspace opacities in right perihilar region, consistent with radiation fibrosis. 2. Airspace opacities in right mid and lower lung zones and left lower lung zone with mild worsening, consistent with atelectasis/scarring versus pneumonia. 3. Chronic small right pleural effusion with pleural catheter. 4. Cardiomegaly. Reviewed, dictated and finalized at location A. IMPRESSION: 1. Chronic volume loss of right hemithorax with stable airspace opacities in ri ght perihilar region, consistent with radiation fibrosis. 2. Airspace opacities in right mid and lower lung zones and left lower lung zon e with mild worsening, consistent with atelectasis/scarring versus pneumonia. 3. Chronic small right pleural effusion with pleural catheter. 4. Cardiomegaly.
[2021-10-14 22:55] VITALS: BP 88/45; PULSE 74; RESP 18; TEMP 36.6; O2SAT 99
--- NOTE | 2021-10-14 23:04 | ED.SOB ---
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 -- Decreased drainage via the right pleural catheter. The patient had a chronic right pleural catheter which was removed and 3 weeks ago he had placement of a new right pleural catheter. He normally drains around 500 mL on a daily basis. For the past 3 days he has had decreased pleural catheter drainage. -- No fever. The patient had chills. -- Pleuritic chest pain. MD elicited complaint: shortness of breath, cough and pain with inspiration Pertinent past history: COPD, congestive heart failure and pneumonia Onset (ago): day(s) ( started 3 days ago.) Timing: constant Severity: severe Exacerbating factors: exertion Relieving factors: nothing Known history of: COPD, congestive heart failure and other ( Right lung mass and bilateral pleural effusion) Associated symptoms: pain with inspiration, cough and sputum production Treatment prior to arrival: none Related Data Home oxygen amount: none Home Medications Medication Instructions Recorded Confirmed apixaban 5 mg tablet (Eliquis) 5 mg PO BID 02/15/19 10/15/21 carvedilol 12.5 mg tablet 3.125 mg PO Q12H 02/15/19 10/15/21 levothyroxine 175 mcg tablet 150 mcg PO DAILY 02/15/19 10/15/21 pantoprazole 40 mg tablet,delayed 40 mg PO DAILY 05/20/21 10/15/21 release fentanyl 12 mcg/hr transdermal 1 patch topical PER PKG DIR 09/19/21 10/15/21 patch nystatin 100,000 unit/gram topical 1 applic topical BID 09/19/21 10/15/21 cream ondansetron HCl 4 mg tablet 1 tablet PO PRN PRN Nausea 09/19/21 10/15/21 testosterone cypionate 200 mg/mL 200 mg IM WEEKLY 09/19/21 10/15/21 intramuscular oil Allergies Allergy/AdvReac Type Severity Reaction Status Date / Time iohexol Allergy Intermediate PETECHAIE Verified 10/15/21 02:31 [From CONTRAST - CT, XRAY] Sulfa (Sulfonamide Allergy Unknown Hives Verified 10/15/21 02:31 Antibiotics) iv antibiotics unknown Allergy Intermediate Rash Uncoded 09/19/21 03:54 Review of Systems Review of Systems: All systems reviewed & are unremarkable except as noted in HPI and below Constitutional: Constitutional: Reports as per HPI and Reports no additional constitutional complaints Eyes: Eyes: Reports as per HPI and Reports no additional eye complaints ENT: Reports system reviewed and no additional complaints, except as documented and Reports as per HPI Cardiovascular: Cardiovascular: Reports as per HPI and Reports no additional cardiovascular complaints Respiratory: Respiratory: Reports as per HPI, Reports no additional respiratory complaints, Reports chest congestion, Reports cough and Reports dyspnea Comments: decreased drainage from the right pleural catheter. The patient has intermittent drainage from the previous catheter site. Redness and tenderness over the skin over the previous catheter site. patient has been on home on Omadacycline for the past 6 weeks for community MRSA infection Gastrointestinal: Gastrointestinal: Reports as per HPI and Reports no additional gastrointestinal complaints Genitourinary: Genitourinary: Reports no additional male genitourinary complaints and Reports as per HPI Musculoskeletal: Musculoskeletal: Reports no additional musculoskeletal complaints and Reports as per HPI Integumentary/Breasts: Skin/Breast
[2021-10-14 23:15] VITALS: O2SAT 99
--- NOTE | 2021-10-14 23:19 | ECG_ITS ---
Measurements Intervals [place] Rate: 71 P: -74 MI: 164 QRS: 156 QRSD: 162 T: 16 QT: 465 QTc: 507 Interpretive Statements ELECTRONIC VENTRICULAR PACEMAKER WITH INHIBITION UNDERLYING ATRIAL FIBRILLATION RIGHT BUNDLE BRANCH BLOCK LEFT POSTERIOR FASCICULAR BLOCK NO FURTHER INTERPRETATION IS POSSIBLE ABNORMAL ECG Electronically Signed On 10-15-2021 6:43:04 CDT by Yovanny Ziegler D.O.
[2021-10-14] MEDS: LACTATED RINGERS 1,000 ML 999 ML IV CONT (23:50)
[2021-10-14 23:51] LABS: Hematocrit 23.5 % (37.0-46.0); Mean Corpuscular HGB Conc 29.8 g/dL (32.0-36.0); Mean Corpuscular Hemoglobin 26.4 pg (27.0-31.0); Mean Corpuscular Volume 88.7 fL (78.0-102.0); Mean Platelet Volume 11.3 fl (8.7-11.0); Platelet Count Result 158 K/mm3 (150-420); Red Blood Count 2.65 M/mm3 (4.70-6.10); Red Cell Distribution Width 19.9 % (11.6-14.4); White Blood Count 3.3 K/mm3 (4.8-10.8)
[2021-10-15] VITALS (13 sets, daily range): BP systolic 99–126; BP diastolic 48–84; PULSE 70–82; RESP 16–19; TEMP 36.2–36.6; O2SAT 97–100
[2021-10-15 00:09] LABS: INR 1.2; Partial Thromboplastin Time 33.9 SEC (23.90-30.70); Prothrombin Time 13.2 Seconds (9.50-12.10)
[2021-10-15 00:11] LABS: Lactic Acid Reflex 0.9 mmol/L (0.4-2.0)
[2021-10-15 00:16] LABS: Alanine Aminotransferase 7 U/L (16-63); Albumin Level 2.2 g/dL (3.4-5.0); Alkaline Phosphatase 97 U/L (46-116); Anion Gap 5 mmol/L (8-16); Aspartate Amino Transferase 18 U/L (15-37); Bilirubin,Total 0.4 mg/dL (0.00-1.00); Blood Urea Nitrogen 16 mg/dL (7-18); Carbon Dioxide 27 mmol/L (21-32); Chloride 105 mmol/L (98-108); Estimated Glomerular Filt Rate 47; Glucose 168 mg/dL (70-99); Lipase 29 U/L (73-393); NT Pro B Type Natriuretic Pept 9937 pg/mL (0-450); Osmolality Calculated 289 mOsm/kg (285-295); Potassium 3.6 mmol/L (3.5-5.1); Sodium 137 mmol/L (136-145); Total Protein 6.4 g/dL (6.4-8.2); Troponin I 22.3 ng/L (0.00-60.4)
[2021-10-15 00:19] LABS: Band Neutrophils Percent 0 % (0-6); Basophils Absolute Manual 0.06 K/mm3 (0-0.1); Basophils Percent Manual 2 % (0-1); Eosinophils Percent Manual 0 % (1-6); Lymphocytes Absolute Manual 0.36 K/mm3 (1.1-4.5); Lymphocytes Percent Manual 11 % (18-44); Monocytes Absolute Manual 0.23 K/mm3 (0.1-0.90); Monocytes Percent Manual 7 % (3-9); Neutrophils Absolute Manual 2.64 K/mm3 (1.3-6.7); Neutrophils Percent Manual 80 % (46-73); Platelet Estimate Adequate (Adequate); Total Cells Counted 100
[2021-10-15 00:28] LABS: SARS-CoV-2 RNA PCR Negative (Negative)
[2021-10-15] MEDS: FUROSEMIDE INJ 20 MG/2 ML VIAL IV PUSH ×2 (01:30→02:45)
--- NOTE | 2021-10-15 01:47 | PC.NURSE ---
blood consent signed by patient.
--- NOTE | 2021-10-15 05:02 | PC.NURSE ---
requested [facility] to transport pt from ER to private residence due to pt is unable to self ambulate. Informed that [facility] does not have a BLS transport vehicle available at this time.
--- NOTE | 2021-10-15 05:08 | PC.NURSE ---
contacted [facility] for pt transportation from ER to pt's home address due to pt unable to self ambulate.
== END 2021-10-15 05:35 | disposition home or self-care (01) ==
PROVIDERS: Emergency Provider Internal Medicine Critical Care Medicine; PCP Internal Medicine
DX: I13.0 Hypertensive heart and chronic kidney disease with heart failure and stage 1 through stage 4 chronic kidney disease, or unspecified chronic kidney disease (principal); I50.9 Heart failure, unspecified; I48.20 Chronic atrial fibrillation, unspecified; I73.9 Peripheral vascular disease, unspecified; I25.10 Atherosclerotic heart disease of native coronary artery without angina pectoris; D64.9 Anemia, unspecified; C7A.8 Other malignant neuroendocrine tumors; C7B.8 Other secondary neuroendocrine tumors; E03.9 Hypothyroidism, unspecified; E11.22 Type 2 diabetes mellitus with diabetic chronic kidney disease; J44.9 Chronic obstructive pulmonary disease, unspecified; N18.30 Chronic kidney disease, stage 3 unspecified; R59.0 Localized enlarged lymph nodes; I25.2 Old myocardial infarction; Z95.5 Presence of coronary angioplasty implant and graft; Z79.01 Long term (current) use of anticoagulants; Z89.511 Acquired absence of right leg below knee; Z95.0 Presence of cardiac pacemaker; Z87.891 Personal history of nicotine dependence
CPT/HCPCS: 36415; 36430; 71045; 80053; 83605; 83690; 83880; 84484; 85025; 85610; 85730; 86850; 86900; 86901; 86920; 87040; 93005; 96361; 96374; 96376; 99284; C9803; J1940; J7050; J7120; P9016; U0003; U0005

== ENCOUNTER 2021-10-21 10:30 | Outpatient (CLI) | payer MEDICARE, SELFPAY ==
[2021-10-21 10:45] LABS: Hematocrit 27.9 % (37.0-46.0); Hemoglobin 8.4 g/dL (12.4-15.3); Mean Corpuscular HGB Conc 30.1 g/dL (32.0-36.0); Mean Corpuscular Hemoglobin 26.9 pg (27.0-31.0); Mean Corpuscular Volume 89.4 fL (78.0-102.0); Mean Platelet Volume 9.9 fl (8.7-11.0); Platelet Count Result 158 K/mm3 (150-420); Red Blood Count 3.12 M/mm3 (4.70-6.10); Red Cell Distribution Width 18.5 % (11.6-14.4); White Blood Count 2.7 K/mm3 (4.8-10.8)
[2021-10-21 11:04] LABS: Band Neutrophils Percent 1 % (0-6); Basophils Absolute Manual 0.02 K/mm3 (0-0.1); Basophils Percent Manual 1 % (0-1); Eosinophils Absolute Manual 0.02 K/mm3 (0.02-0.5); Eosinophils Percent Manual 1 % (1-6); Lymphocytes Percent Manual 15 % (18-44); Monocytes Absolute Manual 0.32 K/mm3 (0.1-0.90); Monocytes Percent Manual 12 % (3-9); Neutrophils Absolute Manual 1.91 K/mm3 (1.3-6.7); Neutrophils Percent Manual 70 % (46-73); Platelet Estimate Adequate (Adequate); Total Cells Counted 100
[2021-10-21 11:35] LABS: Ferritin 203 ng/mL (26-388); Iron 20 ug/dL (65-175)
== END 2021-10-21 10:31 | disposition home or self-care (01) ==
LOC: CHSLAB 10:32
PROVIDERS: PCP Internal Medicine; Visit Provider Internal Medicine
DX: D50.9 Iron deficiency anemia, unspecified (principal)
CPT/HCPCS: 36415; 82728; 83540; 85025

== ENCOUNTER 2021-10-26 11:50 | Outpatient (NON) | payer MEDICARE, SELFPAY | END 2021-10-26 11:51 | disposition home or self-care (01) | LOC: CHSLAB 11:52 | PROVIDERS: Visit Provider Internal Medicine | DX: T85.698A Other mechanical complication of other specified internal prosthetic devices, implants and grafts, initial encounter (principal); Z79.2 Long term (current) use of antibiotics | CPT/HCPCS: 87070; 87147; 87186; 87205 ==

== ENCOUNTER 2021-11-05 10:50 | Outpatient (CLI) | payer MEDICARE, SELFPAY ==
[2021-11-05 10:55] VITALS: BMI 20.6
[2021-11-05] MEDS: IRON SUCROSE COMPLEX 500 MG in SODIUM CHLORIDE 0.9% IV 250 ML 62.5 MG IVPB (11:05)
[2021-11-05 11:25] VITALS: BP 91/51; PULSE 78; RESP 14; TEMP 36.7; O2SAT 96
--- NOTE | 2021-11-05 11:28 | PC.NURSE ---
Patient here for #1 of 2 IV Venofer infusions. Reports did ok with last round of Venofer (October). Education given. No concerns voiced. IV Venofer administration started. SEE MAR.
[2021-11-05 15:05] VITALS: BP 90/55; PULSE 78; RESP 14; O2SAT 96
--- NOTE | 2021-11-05 15:18 | PC.NURSE ---
Patient tolerated IV Venofer infusion well. VSS. Exit of hospital per wheelchair to [facility]. Will return 11/19/21 at 11 for #2.
== END 2021-11-05 10:51 | disposition home or self-care (01) ==
PROVIDERS: PCP Internal Medicine; Visit Provider Internal Medicine
DX: D50.9 Iron deficiency anemia, unspecified (principal)
CPT/HCPCS: 96365; 96366; J1756; J7050

== ENCOUNTER 2021-11-19 10:28 | Outpatient (CLI) | payer MEDICARE, SELFPAY ==
[2021-11-19 10:38] VITALS: BMI 20.4
[2021-11-19] MEDS: IRON SUCROSE COMPLEX 500 MG in SODIUM CHLORIDE 0.9% IV 250 ML 62.5 MG IVPB (10:50)
[2021-11-19 11:19] VITALS: BP 92/49; PULSE 75; RESP 16; TEMP 36.3; O2SAT 99
--- NOTE | 2021-11-19 14:37 | PC.NURSE ---
Patient here for #2 of 2 IV Venofer infusions that were ordered. Education given. No concerns voiced. IV Venofer administered See MAR. Tolerated well. Safe exit of hospital. Patient will have to follow up with Dr. Watt.
--- NOTE | 2021-11-19 14:51 | PC.NURSE ---
Patient left per [facility].
== END 2021-11-19 10:29 | disposition home or self-care (01) ==
LOC: CHSTREATRM 10:32
PROVIDERS: PCP Internal Medicine; Visit Provider Internal Medicine
DX: D50.9 Iron deficiency anemia, unspecified (principal)
CPT/HCPCS: 96365; 96366; J1756; J7050

== ENCOUNTER 2021-11-26 09:58 | Outpatient (CLI) | payer MEDICARE, SELFPAY ==
[2021-11-26 10:23] LABS: Hematocrit 25.8 % (37.0-46.0); Hemoglobin 7.8 g/dL (12.4-15.3); Mean Corpuscular HGB Conc 30.2 g/dL (32.0-36.0); Mean Corpuscular Hemoglobin 26.7 pg (27.0-31.0); Mean Corpuscular Volume 88.4 fL (78.0-102.0); Platelet Count Result 141 K/mm3 (150-420); Red Blood Count 2.92 M/mm3 (4.70-6.10); Red Cell Distribution Width 17.5 % (11.6-14.4); White Blood Count 2.6 K/mm3 (4.8-10.8)
[2021-11-26 11:03] LABS: Band Neutrophils Percent 0 % (0-6); Lymphocytes Absolute Manual 0.39 K/mm3 (1.1-4.5); Lymphocytes Percent Manual 15 % (18-44); Monocytes Absolute Manual 0.26 K/mm3 (0.1-0.90); Monocytes Percent Manual 10 % (3-9); Neutrophils Absolute Manual 1.95 K/mm3 (1.3-6.7); Neutrophils Percent Manual 75 % (46-73); Total Cells Counted 100
[2021-11-26 11:04] LABS: Platelet Estimate Adequate (Adequate)
[2021-11-26 11:43] LABS: Ferritin 246 ng/mL (26-388); Iron 23 ug/dL (65-175); Percent Iron Saturation 19 % (12-57)
== END 2021-11-26 09:59 | disposition home or self-care (01) ==
PROVIDERS: PCP Internal Medicine; Visit Provider Internal Medicine
DX: D50.9 Iron deficiency anemia, unspecified (principal)
CPT/HCPCS: 36415; 82728; 83540; 83550; 85025

== ENCOUNTER 2021-11-30 10:00 | Outpatient (RCR) | payer MEDICARE, SELFPAY | END 2021-12-23 23:59 | disposition home or self-care (01) | LOC: CHSWOUND 10:00 | PROVIDERS: PCP Internal Medicine | DX: I87.312 Chronic venous hypertension (idiopathic) with ulcer of left lower extremity (principal); L97.822 Non-pressure chronic ulcer of other part of left lower leg with fat layer exposed; I70.202 Unspecified atherosclerosis of native arteries of extremities, left leg; E11.22 Type 2 diabetes mellitus with diabetic chronic kidney disease; E11.42 Type 2 diabetes mellitus with diabetic polyneuropathy; E11.51 Type 2 diabetes mellitus with diabetic peripheral angiopathy without gangrene; C34.10 Malignant neoplasm of upper lobe, unspecified bronchus or lung; C79.9 Secondary malignant neoplasm of unspecified site; I25.10 Atherosclerotic heart disease of native coronary artery without angina pectoris; I48.20 Chronic atrial fibrillation, unspecified; I50.9 Heart failure, unspecified; N18.30 Chronic kidney disease, stage 3 unspecified; E78.5 Hyperlipidemia, unspecified; J44.9 Chronic obstructive pulmonary disease, unspecified; Z95.5 Presence of coronary angioplasty implant and graft; Z79.01 Long term (current) use of anticoagulants; Z95.0 Presence of cardiac pacemaker; Z89.511 Acquired absence of right leg below knee | CPT/HCPCS: 97602; 99214; G0463 ==

== ENCOUNTER 2021-12-09 17:03 | Emergency (ER) | payer MEDICARE, SELFPAY ==
[2021-12-09] VITALS (17 sets, daily range): BP systolic 79–118; BP diastolic 34–60; PULSE 70–91; RESP 17–20; TEMP 37.1–37.3; O2SAT 88–100
--- NOTE | ~2021-12-09 | CT_ITS ---
EXAMINATION: CT chest abdomen pelvis wo con DATE: 12/09/2021 18:23 INDICATION: drainage tbe pus with weakness. Generalized abd pain . TECHNIQUE: Computed tomography (CT) of the chest, abdomen, and pelvis was performed with 100 mL Omnip aque-350 intravenous contrast. Automated exposure control and iterative reconstruction technique were employed. The dose-length product was 756.67 mGy-cm. COMPARISON: 07/26/2021 FINDINGS: Thoracic aorta: Mild ectasia. Moderate arch calcification. Lung parenchyma and airways: Right middle lobe consolidation and volume loss with air bronchograms an d bronchiectasis. Right lower lobe segmental and subsegmental consolidation and nodular opacities. De bris within right lower lobe bronchi. Thoracic inlet, axillae and chest wall: No thyroid or soft tissue mass. No axillary lymphadenopathy. Left chest pacer with intact leads. Mediastinum: Right hilar mass, grossly stable and poorly evaluated without contrast. Calcified lymph nodes. Heart and pericardium: Enlarged heart size. No pericardial effusion. Coronary artery calcifications: Heavy. Pleura: Increased size of the moderate air-containing right pleural fluid collection. Right pleural d rain in place. Right pleural thickening. Moderate uncomplicated appearing left pleural effusion.. Thoracic bones: No acute osseous finding in the chest. ABDOMEN/PELVIS: Liver: Normal. Biliary/Gallbladder: Gallbladder is absent. No bile duct dilation. Pancreas: No mass or duct dilation. Spleen: Normal. Adrenals:No mass. Kidneys: Multiple large bilateral renal cysts. GI tract: No small or large bowel dilation. Appendix not visualized Mesentery/Peritoneum: No ascites, mass, or free air. Retroperitoneum: No mass. Severe atherosclerotic calcification. Pelvis: Bladder wall thickening likely secondary to outlet compromise from prostatomegaly. Small volu me free pelvic fluid. Soft Tissues: Diffuse soft tissue edema. Abdominopelvic bones: No acute osseous finding in the abdomen/pelvis. IMPRESSION: Increased size of the moderate right empyema. Moderate simple appearing left pleural effusion. Right middle lobe atelectasis/consolidation. Right lower lobe pneumonia, possibly with a component of aspir ation. Body wall edema. Reviewed, dictated and finalized at location K. IMPRESSION: Increased size of the moderate right empyema. Moderate simple appearing left pl eural effusion. Right middle lobe atelectasis/consolidation. Right lower lobe p neumonia, possibly with a component of aspiration. Body wall edema.
--- NOTE | ~2021-12-09 | CT_ITS ---
EXAMINATION: CT brain wo con DATE: 12/09/2021 18:22 INDICATION: AMS weakness . TECHNIQUE: Computed tomography (CT) of the head was performed without intravenous contrast. The mA wa s adjusted according to patient size. Iterative reconstruction technique was employed. The dose-lengt h product was 756.67 mGy-cm. COMPARISON: 06/27/2021 FINDINGS: No acute intracranial hemorrhage or extra-axial fluid collection. No hydrocephalus, mass, or herniation. No acute ischemic infarct. Unremarkable dural venous sinus attenuation. No acute osseous abnormality. Trace left mastoid fluid. Left maxillary retention cyst or polyp. The remaining aerated spaces are cl ear. Mild atrophy and chronic white matter change. Right basal ganglia calcification. 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 Atherosclerotic intracranial calcification. Bilateral lens replacements. IMPRESSION: No acute intracranial process. Reviewed, dictated and finalized at location K.
--- NOTE | 2021-12-09 17:22 | ECG_ITS ---
Measurements Intervals [place] Rate: 88 P: VT: 0 QRS: 146 QRSD: 152 T: 47 QT: 393 QTc: 476 Interpretive Statements ATRIAL FIBRILLATION ELECTRONIC VENTRICULAR PACEMAKER COMPLEXES AND VENTRICULAR PREMATURE COMPLEX RIGHT BUNDLE BRANCH BLOCK BASELINE ARTIFACT- I, II, AVR, AVL, AVF, V1, V4 NO FURTHER INTERPRETATION IS POSSIBLE ABNORMAL ECG COMPARISON TO PRIOR ECG 10-14-21 23:35 NO SIGNIFICANT CHANGES Electronically Signed On 12-09-2021 19:29:40 CDT by Yovanny Ziegler D.O.
[2021-12-09] MEDS: ACETAMINOPHEN 325 MG TABLET 650 MG PO (17:50)
[2021-12-09] MEDS: SODIUM CHLORIDE 0.9% IV 1,000 ML 999 ML IV CONT (17:51)
[2021-12-09 17:55] LABS: Hematocrit 28.8 % (37.0-46.0); Hemoglobin 8.7 g/dL (12.4-15.3); Immature Granulocyte Absolute 0.02 K/mm3 (0.00-0.00); Immature Granulocyte Percent A 0.4 % (0.0-0.0); Lymphocytes Absolute Auto 0.28 K/mm3 (1.10-4.50); Lymphocytes Percent Auto 6.2 % (18.0-42.0); Mean Corpuscular HGB Conc 30.2 g/dL (32.0-36.0); Mean Corpuscular Hemoglobin 26.7 pg (27.0-31.0); Mean Corpuscular Volume 88.3 fL (78.0-102.0); Mean Platelet Volume 9.6 fl (8.7-11.0); Monocytes Absolute Auto 0.34 K/mm3 (0.10-0.90); Monocytes Percent Auto 7.5 % (2.0-11.0); Neutrophils Absolute Auto 3.9 K/mm3 (1.7-7.2); Neutrophils Percent Auto 85.9 % (50.0-70.0); Platelet Count Result 193 K/mm3 (150-420); Red Blood Count 3.26 M/mm3 (4.70-6.10); Red Cell Distribution Width 17.6 % (11.6-14.4); White Blood Count 4.5 K/mm3 (4.8-10.8)
[2021-12-09 17:57] LABS: Base Excess ABG 1.1 mmol/L (0-2); HCO3 ABG 24.2 mmol/L (23-29); Oxygen Content ABG 11.3 %vol (16.0-22.0); Oxygen Saturation ABG 89.2 % (95-97); Oxyhemoglobin 88.7 % (94-100); PCO2 ABG 32.5 mmHg (35-45); PO2 ABG 55.7 mmHg (75-85); pH ABG 7.49 (7.35-7.45)
[2021-12-09 17:59] LABS: Device ROOM AIR; Modified Allen's Test Pass; Site Drawn RIGHT RADIAL
[2021-12-09 18:09] LABS: Add Urine Microscopic? YES; Appearance Urine Clear (Clear); Bilirubin Urine Negative (Negative); Blood Urine 1+ (Negative); Color Urine Light Yellow (Yellow); Glucose Urine UA Negative (Negative); Ketones Urine Negative (Negative); Leukocyte Esterase Ur 2+ LEU/UL (Negative); Nitrate Urine Negative (Negative); Protein Urine Negative (Negative)
[2021-12-09 18:18] LABS: Lactic Acid Reflex 1.3 mmol/L (0.4-2.0)
[2021-12-09 18:24] LABS: Bacteria Urine 3+ /hpf; RBC Urine 0-2 /hpf (0-2); Squamous Epithelial Cell Urine Few /hpf (Few); WBC Urine 16-20 /hpf (0-3)
[2021-12-09 18:27] LABS: Alanine Aminotransferase 7 U/L (16-63); Albumin Level 2.3 g/dL (3.4-5.0); Alkaline Phosphatase 91 U/L (46-116); Anion Gap 11 mmol/L (8-16); Aspartate Amino Transferase 29 U/L (15-37); Bilirubin,Total 0.8 mg/dL (0.00-1.00); Blood Urea Nitrogen 29 mg/dL (7-18); Calcium 8.4 mg/dL (8.5-10.1); Carbon Dioxide 26 mmol/L (21-32); Chloride 103 mmol/L (98-108); Creatine Kinase 56 U/L (39-308); Estimated Glomerular Filt Rate 40; Glucose 63 mg/dL (70-99); Osmolality Calculated 293 mOsm/kg (285-295); Sodium 140 mmol/L (136-145); Thyroid Stimulating Hormone 14.21 uIU/mL (0.36-3.74); Total Protein 6.6 g/dL (6.4-8.2); Troponin I 29.8 ng/L (0.00-60.4)
[2021-12-09 18:28] LABS: Amphetamine Screen Urine Negative (Negative); Barbiturate Screen Urine Negative (Negative); Benzodiazepines Screen Urine Negative (Negative); Cannabinoid Screen Urine Negative (Negative); Cocaine Screen Urine Negative (Negative); Methadone Screen Urine Negative (Negative); Opiate Screen Urine Negative (Negative); Phencyclidine Screen Urine Negative (Negative)
[2021-12-09 18:28] LABS: Ethanol < 3 mg/dL (0-6)
[2021-12-09 18:32] LABS: Influenza A QL RT-PCR Negative (Negative); Influenza B QL RT-PCR Negative (Negative); SARS-CoV-2 RNA PCR Positive (Negative)
--- NOTE | 2021-12-09 18:41 | PC.NURSE ---
1750 during administration of tylenol , pt had coughing episode while attempting to swallow water which pt requested to take medication with. attempted to give tylenol with applesauce. was able to swallow but had to swallow multiple times to get medication to go down. pt then went to xray department. 1814 pt returned to er , noted sapo2 89% on room air. pt states uses inhaler at home sometimes. 1829 noted sapo2 87% room air. oxygen applied at this time. cardiac monitoring also applied, dr camacho notified and updated on pt condition. pt resting per cot. Resp even and unlabored. pt denies shortness of breath. call buchanan in reach. no needs at this time.
[2021-12-09 18:44] LABS: Strep Group A RT-PCR Not Detected (Negative)
--- NOTE | 2021-12-09 19:18 | PC.NURSE ---
1904 report to ETHAN skelton. pt positive covid. placed on isolation. NPO status. 1914 pt declined to go to [facility] but would go to [facility], [place]. call placed to [facility], per Yvonne, no beds available at this time. 1929 pt notified no beds at [facility]. agreed with [facility]. spoke with Ananya at [facility]. Unable to accept this pt due to thoracentesis drainage tube wounds. dr camacho notified. 1934 spoke with pt. chest tube was placed at [facility]. pt declined to go to [place] or to go to [facility]. ETHAN Skelton notified.
[2021-12-09] MEDS: ALBUTEROL SULFATE (*SP) INHALER 2 PUFF INHALATION (19:31)
[2021-12-09] MEDS: SODIUM CHLORIDE 0.9% IV 1,000 ML 125 ML IV CONT (20:04)
[2021-12-09] MEDS: DEXAMETHASONE SOD PHOS INJ 4 MG/ML VIAL IV PUSH (20:04)
[2021-12-09] MEDS: DEXTROSE 50% 25 GM/50 ML SYRINGE IV PUSH (20:05)
--- NOTE | 2021-12-09 21:04 | PC.NURSE ---
contacted [facility] connect for pt transfer to [facility], they will call back.
--- NOTE | 2021-12-09 21:12 | PC.NURSE ---
notified MD Hernandez concerning pt's blood pressure.
[2021-12-09] MEDS: SODIUM CHLORIDE 0.9% IV 1,000 ML 999 ML (21:40)
--- NOTE | 2021-12-09 22:05 | ED.AMS ---
HPI - Altered Mental Status General Chief Complaint: Altered Mental Status Stated Complaint: Amb Time Seen by Provider: 12/09/21 17:07 Source: patient, EMS and RN notes reviewed Mode of arrival: EMS Limitations: no limitations History of Present Illness MD complaint: weakness Onset (ago): day(s) (3) Severity: similar to previous episodes Consistency of symptoms: getting Worse Context: history of similar presentation Associated symptoms: loss of appetite, malaise, nausea/vomiting, shortness of breath, weakness, foul smelling urine and difficulty walking Treatments prior to arrival: IV fluid Related Data Home Medications Medication Instructions Recorded Confirmed apixaban 5 mg tablet (Eliquis) 5 mg PO BID 02/15/19 12/09/21 carvedilol 12.5 mg tablet 3.125 mg PO Q12H 02/15/19 12/09/21 levothyroxine 175 mcg tablet 150 mcg PO DAILY 02/15/19 12/09/21 pantoprazole 40 mg tablet,delayed 40 mg PO DAILY 05/20/21 12/09/21 release fentanyl 12 mcg/hr transdermal 1 patch topical PER PKG DIR 09/19/21 12/09/21 patch nystatin 100,000 unit/gram topical 1 applic topical BID 09/19/21 12/09/21 cream ondansetron HCl 4 mg tablet 1 tablet PO PRN PRN Nausea 09/19/21 12/09/21 testosterone cypionate 200 mg/mL 200 mg IM WEEKLY 09/19/21 12/09/21 intramuscular oil Allergies Allergy/AdvReac Type Severity Reaction Status Date / Time iohexol Allergy Intermediate PETECHAIE Verified 10/15/21 02:31 [From CONTRAST - CT, XRAY] Sulfa (Sulfonamide Allergy Unknown Hives Verified 10/15/21 02:31 Antibiotics) iv antibiotics unknown Allergy Intermediate Rash Uncoded 09/19/21 03:54 Review of Systems Review of Systems: All systems reviewed & are unremarkable except as noted in HPI and below Constitutional: Constitutional: Reports no additional constitutional complaints Eyes: Eyes: Reports no additional eye complaints ENT: Reports system reviewed and no additional complaints, except as documented Cardiovascular: Cardiovascular: Reports no additional cardiovascular complaints Respiratory: Respiratory: Reports no additional respiratory complaints Gastrointestinal: Gastrointestinal: Reports no additional gastrointestinal complaints Musculoskeletal: Musculoskeletal: Reports no additional musculoskeletal complaints and Reports myalgias Integumentary/Breasts: Skin/Breast: Reports system reviewed and no additional complaints, except as docu Neurologic: Reports system reviewed and no additional complaints, except as documented and Reports weakness Psychiatric: Psychiatric: Reports no additional psychiatric complaints Endocrine: Endocrine: Reports no additional endocrine complaints Hematologic/Lymphatic: Hematologic/Lymphatic: Reports no additional hematologic/lymphatic complaints Allergic/Immunologic: Allergic/Immunologic: Reports no additional allergic/immunologic complaints PMFSH Past Medical History Medical History A-fib Abdominal pain Acquired hypothyroidism Chronic renal failure Diabetes Heart attack History of thyroid cancer Hypertension Kidney stone Pacemaker Thyroid disease Urinary retention UTI (urinary tract infection) Surgical History Surgical History H/O inguinal hernia repair H/O thyroidectomy History of back surgery Hx of BKA S/P bilateral foot surgery Family History Family History Father Heart failure Mother Cerebrovascular accident Sibling Kidney failure Social History Social History Smoking packs per day: 1 Smoking cigarettes per day: 20.0 Years smoked: 50 Smoking pack-years: 50.00 Smoking status: Former smoker Tobacco type: cigarettes and pipe Second hand tobacco smoke exposure: No Alcohol intake: never Substance use: never Gender identity (if verbalized by t
[2021-12-09] MEDS: metroNIDAZOLE 500 MG/ISO 100ML 500 MG/100 ML BAG 100 MG IVPB (22:13)
[2021-12-09 22:23] LABS: Glucose Point of Care 137 mg/dl (65-105)
--- NOTE | 2021-12-09 23:28 | PC.NURSE ---
contacted [facility]. pt will be admitted to room 752. [facility] will call back for pt report.
--- NOTE | 2021-12-09 23:41 | PC.NURSE ---
nurse report provided to [facility] connect [facility]
[2021-12-10] VITALS: BP 96/60; PULSE 70; RESP 21; O2SAT 95
--- NOTE | 2021-12-10 00:10 | PC.NURSE ---
contacted [facility] for pt transfer - no transfer truck available
--- NOTE | 2021-12-10 00:12 | PC.NURSE ---
contacted [facility] for pt transfer - paging EMS truck
[2021-12-10 00:30] VITALS: BP 101/58; PULSE 72; RESP 16; O2SAT 100
[2021-12-10 00:45] VITALS: BP 102/62; PULSE 82; RESP 20; O2SAT 99
--- NOTE | 2021-12-10 01:05 | PC.NURSE ---
wound photos uploaded. wound of right rib area and left buttocks.
--- NOTE | 2021-12-10 01:13 | PC.NURSE ---
[facility] transporting patient to [facility]. pt has NS at 125ml/hr infusing, oxygen via NC at 2L, and a enciso draining.
[2021-12-10 01:16] VITALS: BP 105/59; PULSE 69; RESP 19; TEMP 36.7; O2SAT 99
--- NOTE | 2021-12-13 22:40 | PC.NURSE ---
urine culture results faxed to [facility], spoke with Jerrell, charge nurse. pt now in room [id number]. faxed to [phone]
== END 2021-12-10 01:28 | disposition short-term general hospital (02) ==
PROVIDERS: Emergency Provider Emergency Medicine; PCP Internal Medicine
DX: U07.1 COVID-19 (principal); E03.9 Hypothyroidism, unspecified; N17.9 Acute kidney failure, unspecified; J18.9 Pneumonia, unspecified organism; J90 Pleural effusion, not elsewhere classified; A41.9 Sepsis, unspecified organism; E11.9 Type 2 diabetes mellitus without complications; I10 Essential (primary) hypertension; I48.91 Unspecified atrial fibrillation; Z87.891 Personal history of nicotine dependence; Z79.899 Other long term (current) drug therapy
CPT/HCPCS: 36415; 36600; 70450; 71250; 74176; 80053; 80307; 81001; 82550; 82805; 82948; 83605; 84443; 84484; 85025; 87040; 87077; 87086; 87088; 87186; 87502; 87651; 93005; 94640; 96361; 96365; 96367; 96375; 99285; A9270; C9803; J0456; J0696; J1100; J3370; J7030; U0003; U0005